=== PATIENT | female | born 1945 | race Caucasian/White ===

== ENCOUNTER 2018-04-15 16:01 | Inpatient (IN) | payer OTHER, MEDICAID ==
--- NOTE | 2018-04-15 16:24 | EDPHY ---
H & P Stated Complaint: nausea, abd pain, increased weakness over the last few days Time Seen by Provider: 04/15/18 16:23 HPI/ROS: CHIEF COMPLAINT: Nausea, weakness HISTORY OF PRESENT ILLNESS: The patient presents the ED for evaluation of nausea and weakness. The patient's symptoms have been occurring intermittently over the past several weeks. She denies any chest pain or difficulty breathing. She denies fever, cough or congestion. The patient denies any dysuria. She reports she has been having bouts of discoordination. She has also been having intermittent pain in her shoulders. The patient denies any history of fall or trauma. She denies any complaints of abdominal pain, fever, vomiting or diarrhea. The patient contacted her primary care provider who referred her to the ED for further evaluation. REVIEW OF SYSTEMS: A comprehensive 10 point review of systems is otherwise negative aside from elements mentioned in the history of present illness. Source: Patient Exam Limitations: No limitations - Personal History Current Tetanus Diphtheria and Acellular Pertussis (TDAP): Yes - Medical/Surgical History Hx Asthma: No Hx Chronic Respiratory Disease: No Hx Diabetes: No Hx Cardiac Disease: No Hx Renal Disease: No Hx Cirrhosis: No Hx Alcoholism: Yes Hx HIV/AIDS: No Hx Splenectomy or Spleen Trauma: No Other PMH: alcoholism/depression/r hip and wrist fx/l humeral fx, - Social History Smoking Status: Current some day smoker - Physical Exam Exam: General Appearance: Thin female, no acute distress Head: Normocephalic, atraumatic Eyes: Pupils equal and round no pallor or injection ENT, Mouth: Mucous membranes moist Respiratory: There are no retractions, lungs are clear to auscultation Cardiovascular: Regular rate and rhythm Gastrointestinal: Abdomen is soft and nontender, no masses, bowel sounds normal Neurological: 5/5 strength all 4 extremities, cranial nerves 2-12 intact Skin: Warm and dry, no rashes Musculoskeletal: Neck is supple nontender Extremities: symmetrical, full range of motion Psychiatric: Patient is oriented X 3, there is no agitation Constitutional: Initial Vital Signs Temperature (C) 36.6 C 04/15/18 16:09 Heart Rate 100 04/15/18 16:09 Respiratory Rate 16 04/15/18 16:09 Blood Pressure 151/100 H 04/15/18 16:09 O2 Sat (%) 93 04/15/18 16:09 O2 Delivery Mode Room Air Allergies/Adverse Reactions: No Known Allergies Allergy (Unverified 01/29/15 12:21) Home Medications: Medication Instructions Recorded Sertraline HCl [Zoloft 100mg (*)] 100 mg PO DAILY 04/15/18 Temazepam [Restoril] 30 mg PO HS 04/15/18 Medical Decision Making - Diagnostics EKG Interpretation: EKG: Complete interpretation has been separately recorded in the [facility] archive. Summary impression: Sinus rhythm, rate 81 Imaging Results: Imaging Impressions Head CT 04/15/18 17:15 Impression: Stable noncontrast CT examination of the brain. Results called to Dr. Hayes Beckwith at 5:50 PM at the time of the interpretation. ED Course/Re-evaluation: The patient presents to the ED with multiple vague complaints over the past several weeks including confusion, nausea and discoordination. I reviewed the patient's outpatient medications provided by [facility]. The patient is only taking sertaline and temazepam. The patient is noted to have a sodium of 124. She does not endorse symptoms of excess water consumption. The patient takes no medications which cause hyponatremia. The patient does appear somewhat hypovolemic. Given the patient's sodium of 124 in the setting of symptoms of confusion, nausea and gait instability I do feel she should be admitted to the hospital for further management. Consultation is made with the hospitalist service. She will be admitted by Dr. Avery. Her EKG demonstrates no significant arrhythmia. Fluid orders will be deferred to the admitting hospitalist. Differential Diagnosis: Differential diagnosis considered includes dehydration, metabolic abnormality, intracranial mass, urinary tract infection, anemia - Data Points Laboratory Results: Laboratory Results 04/15/18 17:00 04/15/18 17:00 04/15/18 04/15/18 04/15/18 17:17 17:00 17:00 WBC RBC Hgb Hct MCV MCH MCHC RDW Plt Count MPV Neut % (Auto) Lymph % (Auto) [place] % (Auto) Eos % (Auto) Baso % (Auto) Nucleat RBC Rel Count Absolute Neuts (auto) Absolute Lymphs (auto) Absolute Monos (auto) Absolute Eos (auto) Absolute Basos (auto) Absolute Nucleated RBC Immature Gran % Immature Gran # Sodium Potassium Chloride Carbon Dioxide Anion Gap BUN Creatinine Estimated GFR Glucose Serum Osmolality Pending Calcium Total Bilirubin Conjugated Bilirubin Unconjugated Bilirubin AST ALT Alkaline Phosphatase Total Protein Albumin Lipase Urine Color YELLOW Urine Appearance HAZY Urine pH 6.0 (5.0-7.5) Ur Specific [place] 1.018 (1.002-1.030) Urine Protein NEGATIVE (NEGATIVE) Urine Ketones TRACE H (NEGATIVE) Urine Blood 2+ H (NEGATIVE) Urine Nitrate NEGATIVE (NEGATIVE) Urine Bilirubin NEGATIVE (NEGATIVE) Urine Urobilinogen 4.0 EU H EU (0.2-1.0) Ur Leukocyte Esterase NEGATIVE (NEGATIVE) Urine RBC 15-25 /hpf H /hpf (0-3) Urine WBC 1-3 /hpf /hpf (0-3) Ur Epithelial Cells TRACE /lpf /lpf (NONE-1+) Urine Mucus TRACE /lpf /lpf (NONE-1+) Urine Osmolality Pending Urine Glucose NEGATIVE (NEGATIVE) 04/15/18 04/15/18 17:00 17:00 WBC 6.73 10^3/uL 10^3/uL (3.80-9.50) RBC 4.77 10^6/uL 10^6/uL (4.18-5.33) Hgb 13.9 g/dL g/dL (12.6-16.3) Hct 38.9 % % (38.0-47.0) MCV 81.6 fL fL (81.5-99.8) MCH 29.1 pg pg (27.9-34.1) MCHC 35.7 g/dL g/dL (32.4-36.7) RDW 13.3 % % (11.5-15.2) Plt Count 318 10^3/uL 10^3/uL (150-400) MPV 8.7 fL fL (8.7-11.7) Neut % (Auto) 72.0 % % (39.3-74.2) Lymph % (Auto) 14.9 % L % (15.0-45.0) [place] % (Auto) 11.7 % % (4.5-13.0) Eos % (Auto) 0.1 % L % (0.6-7.6) Baso % (Auto) 0.3 % % (0.3-1.7) Nucleat RBC Rel Count 0.0 % % (0.0-0.2) Absolute Neuts (auto) 4.84 10^3/uL 10^3/uL (1.70-6.50) Absolute Lymphs (auto) 1.00 10^3/uL 10^3/uL (1.00-3.00) Absolute Monos (auto) 0.79 10^3/uL 10^3/uL (0.30-0.80) Absolute Eos (auto) 0.01 10^3/uL L 10^3/uL (0.03-0.40) Absolute Basos (auto) 0.02 10^3/uL 10^3/uL (0.02-0.10) Absolute Nucleated RBC 0.00 10^3/uL 10^3/uL (0-0.01) Immature Gran % 1.0 % % (0.0-1.1) Immature Gran # 0.07 10^3/uL 10^3/uL (0.00-0.10) Sodium 124 mEq/L L mEq/L (135-145) Potassium 3.7 mEq/L mEq/L (3.3-5.0) Chloride 83 mEq/L L mEq/L (97-110) Carbon Dioxide 29 mEq/l mEq/l (22-31) Anion Gap 12 mEq/L mEq/L (8-16) BUN 18 mg/dL mg/dL (7-23) Creatinine 0.5 mg/dL L mg/dL (0.6-1.0) Estimated GFR > 60 Glucose 87 mg/dL mg/dL (70-100) Serum Osmolality Calcium 9.8 mg/dL mg/dL (8.5-10.4) Total Bilirubin 0.5 mg/dL mg/dL (0.1-1.4) Conjugated Bilirubin 0.3 mg/dL mg/dL (0.0-0.5) Unconjugated Bilirubin 0.2 mg/dL mg/dL (0.0-1.1) AST 30 IU/L IU/L (14-46) ALT 30 IU/L IU/L (9-52) Alkaline Phosphatase 87 IU/L IU/L (38-126) Total Protein 7.7 g/dL g/dL (6.3-8.2) Albumin 4.7 g/dL g/dL (3.5-5.0) Lipase 296 IU/L IU/L (23-300) Urine Color Urine Appearance Urine pH Ur Specific [place] Urine Protein Urine Ketones Urine Blood Urine Nitrate Urine Bilirubin Urine Urobilinogen Ur Leukocyte Esterase Urine RBC Urine WBC Ur Epithelial Cells Urine Mucus Urine Osmolality Urine Glucose Departure - Departure Disposition: [facility] Inpatient Acute Clinical Impression: Hyponatremia, Gait abnormality Condition: Good Referrals: Yasmine Davis PA [Primary Care Provider] - As per Instructions
[2018-04-15 17:16] LABS: PLATELET COUNT 318 10^3/uL (150-400)
--- NOTE | 2018-04-15 18:32 | CPEKG ---
Heart Rate: 81 RR Interval: 741 P-R Interval: 176 QRSD Interval: 94 QT Interval: 392 QTC Interval: 455 P [place]: 73 QRS [place]: 33 T Wave [place]: 60 EKG Severity - ABNORMAL ECG - EKG Impression: SINUS RHYTHM EKG Impression: LEFT ATRIAL ABNORMALITY EKG Impression: BORDERLINE R WAVE PROGRESSION, ANTERIOR LEADS Electronically Signed By: Baldo Wells 15-Apr-2018 18:42:36
[2018-04-15] MEDS ORDERED: NS 1,000 ML IV ONE (18:56)
[2018-04-15] MEDS ORDERED: ACETAMINOPHEN 325 MG TAB PO PRN (22:21)
[2018-04-15] MEDS ORDERED: ONDANSETRON 4 MG/2 ML VIAL IVP PRN (22:21)
[2018-04-15] MEDS: NS 1,000 ML IV SCH (23:10)
[2018-04-15] MEDS ORDERED: PROTOCOL MAGNESIUM 1 DOSE IV PRN (23:59)
[2018-04-15] MEDS ORDERED: PROTOCOL POTASSIUM 1 DOSE MISC PRN (23:59)
[2018-04-16] MEDS: TEMAZEPAM 15 MG CAP PO SCH ×2 (00:08→21:43)
--- NOTE | 2018-04-16 01:10 | PDGENHP ---
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 EMR was reviewed and case discussed with accepting hospitalist provider. HPI-this is a very pleasant 72-year-old female with past medical history significant for major depressive disorder controlled and remote history of alcohol dependence, osteopenia who presents emergency department today with complaints of approximately 1 week history of worsening nausea, decreased appetite and worsening generalized weakness requiring on use of a walker. Patient denies any fevers or chills. She has not had any sick contacts. She has not had any abdominal pain. No diarrhea melena or hematochezia is reported. Patient states that her nausea was so significant that she has not had significant oral intake or hydration in the past week. She reports that she has been evaluated by her PCP and a workup that included laboratory studies and referral for MRI and PT. Secondary to her nausea patient states that she has been unable to complete any of these recommended activities except for her laboratory studies which she states were within her normal limits. Patient also was concerned that her blood pressures which are normally BP patient 100s/ 60s on were elevated for her 140s/80 at her PCPs office. She denies any history of dyspnea, chest pain, palpitations. The only significant change on her review of systems a is that she has been waking up with a.m. Headaches which do resolve. No focal deficits reported. History Information - Allergies/Home Medication List Allergies/Adverse Reactions: No Known Allergies Allergy (Unverified 01/29/15 12:21) Home Medications: Sertraline HCl [Zoloft 100mg (*)] 100 mg PO DAILY 04/15/18 [Last Taken 04/15/18] Temazepam [Restoril] 30 mg PO HS 04/15/18 [Last Taken 04/14/18] I have personally reviewed and updated: family history, medical history, social history, surgical history - Past Medical History Additional medical history: Major depressive disorder, history of falls with fractures, osteopenia. Chronic insomnia. Remote history of alcohol dependence in remission since 2001. - Surgical History Additional surgical history: Multiple orthopedic surgeries related to fall including right hip, bilateral wrists and hands, left humerus - Family History Additional family history: Father with history of lung cancer. Other family members with diabetes. - Social History Smoking Status: Current some day smoker Tobacco Use: Cigarettes (Half pack per day for many years. Patient is trying to cut back.) Alcohol Use: Sober (Since 2001) Drug Use: None (Patient reports remote history of marijuana use years ago none currently.) Additional social history: Patient lives alone in an apartment. She does require use of a walker for long distances. Cor status-full. Review of Systems Review of Systems: ROS: 10pt was reviewed & negative except for what was stated in HPI & below Constitutional: Reports: weight loss (Patient thinks she may have lost just a few lb in the last week but notes that she has always been a small frame and denies any longstanding history of weight loss.). Denies: chills, fever EENMT: Reports: nose congestion (Congestion and rhinorrhea Due to seasonal allergies). Denies: blurred vision, sore throat Cardiac: Denies: chest pain, edema, lightheadedness, palpitations, syncope Respiratory: Reports: shortness of breath (Patient with history of occasional shortness of breath nothing recently.). Denies: cough, orthopnea Gastrointestinal: Reports: nausea. Denies: vomitting, black stools, rectal bleeding, abdominal pain, diarrhea Genitourinary: Reports: no symptoms. Denies: dysuria, hematuria Muscolosketal: Reports: joint pain (Patient with generalized aches and pains and arthritis in her hands.). Denies: back pain, muscle pain Neurological: Reports: no symptoms, anxiety, depressed, headache (A.m. Headaches as per HPI), weakness (Generalized weakness more notable in the bilateral lower extremities requiring use of a walker.). Denies: numbness, tingling, tremors Hematologic/Lymphatic: Reports: no symptoms Immunologic/Allergy: Reports: other (Seasonal allergies) Physical Exam Physical Exam: Temp Pulse Resp BP Pulse Ox 36.7 C 75 16 151/80 H 94 04/15/18 22:37 04/15/18 22:37 04/15/18 22:37 04/15/18 22:37 04/15/18 22:37 Constitutional: no apparent distress, chronically ill appearing, other (NAD. Pleasant thin frail the elderly female is sitting up in bed.) Eyes: PERRL, anicteric sclera, EOMI, No scleral injection Ears, Nose, Mouth, Throat: moist mucous membranes, no oral mucosal ulcers, poor dentition (Dentures upper and lower.) Cardiovascular: regular rate and rhythym, no murmur, rub, or gallop, pulses symmetric bilaterally, No systolic murmur, No edema Peripheral Pulses: 1+: dorsalis-pedis (R), dorsalis-pedis (L) Respiratory: no respiratory distress, no rales or rhonchi, clear to auscultation , No expiratory wheeze, No inspiratory crackles, No respiratory distress Gastrointestinal: normoactive bowel sounds, soft, non-tender abdomen, no palpable masses, No tenderness, No guarding, No distension Genitourinary: no bladder tenderness, No johnson in urethra Skin: warm, no rashes or abrasions, other (Patient with 10 bronze color skin which she reports is her normal baseline color as she tends a lot since her youth.) Musculoskeletal: generalized weakness, other (Of arthritic joint deformities of bilateral hands.), No full muscle strength, No pain with ROM Neurologic: AAOx3, sensation intact bilaterally, weakness (Generalized nonfocal) , CN II-XII Intact, No facial droop Psychiatric: interacting appropriately, not encephalopathic, thought process linear, No flat affect, No poor insight, No poor judgement, No poor memory Lab Data & Imaging Review 04/15/18 17:00 04/15/18 22:55 WBC 6.73 10^3/uL (3.80-9.50) 04/15/18 17:00 RBC 4.77 10^6/uL (4.18-5.33) 04/15/18 17:00 Hgb 13.9 g/dL (12.6-16.3) 04/15/18 17:00 Hct 38.9 % (38.0-47.0) 04/15/18 17:00 MCV 81.6 fL (81.5-99.8) 04/15/18 17:00 MCH 29.1 pg (27.9-34.1) 04/15/18 17:00 MCHC 35.7 g/dL (32.4-36.7) 04/15/18 17:00 RDW 13.3 % (11.5-15.2) 04/15/18 17:00 Plt Count 318 10^3/uL (150-400) 04/15/18 17:00 MPV 8.7 fL (8.7-11.7) 04/15/18 17:00 Neut % (Auto) 72.0 % (39.3-74.2) 04/15/18 17:00 Lymph % (Auto) 14.9 % (15.0-45.0) L 04/15/18 17:00 [place] % (Auto) 11.7 % (4.5-13.0) 04/15/18 17:00 Eos % (Auto) 0.1 % (0.6-7.6) L 04/15/18 17:00 Baso % (Auto) 0.3 % (0.3-1.7) 04/15/18 17:00 Nucleat RBC Rel Count 0.0 % (0.0-0.2) 04/15/18 17:00 Absolute Neuts (auto) 4.84 10^3/uL (1.70-6.50) 04/15/18 17:00 Absolute Lymphs (auto) 1.00 10^3/uL (1.00-3.00) 04/15/18 17:00 Absolute Monos (auto) 0.79 10^3/uL (0.30-0.80) 04/15/18 17:00 Absolute Eos (auto) 0.01 10^3/uL (0.03-0.40) L 04/15/18 17:00 Absolute Basos (auto) 0.02 10^3/uL (0.02-0.10) 04/15/18 17:00 Absolute Nucleated RBC 0.00 10^3/uL (0-0.01) 04/15/18 17:00 Immature Gran % 1.0 % (0.0-1.1) 04/15/18 17:00 Immature Gran # 0.07 10^3/uL (0.00-0.10) 04/15/18 17:00 Sodium 123 mEq/L (135-145) L 04/15/18 22:55 Potassium 3.2 mEq/L (3.3-5.0) L 04/15/18 22:55 Chloride 87 mEq/L (97-110) L 04/15/18 22:55 Carbon Dioxide 27 mEq/l (22-31) 04/15/18 22:55 Anion Gap 9 mEq/L (8-16) 04/15/18 22:55 BUN 13 mg/dL (7-23) 04/15/18 22:55 Creatinine 0.4 mg/dL (0.6-1.0) L 04/15/18 22:55 Estimated GFR > 60 04/15/18 22:55 Glucose 120 mg/dL (70-100) H 04/15/18 22:55 Serum Osmolality 259 mosmo/kg (280-297) L 04/15/18 17:00 Calcium 8.5 mg/dL (8.5-10.4) 04/15/18 22:55 Total Bilirubin 0.5 mg/dL (0.1-1.4) 04/15/18 17:00 Conjugated Bilirubin 0.3 mg/dL (0.0-0.5) 04/15/18 17:00 Unconjugated Bilirubin 0.2 mg/dL (0.0-1.1) 04/15/18 17:00 AST 30 IU/L (14-46) 04/15/18 17:00 ALT 30 IU/L (9-52) 04/15/18 17:00 Alkaline Phosphatase 87 IU/L (38-126) 04/15/18 17:00 Total Protein 7.7 g/dL (6.3-8.2) 04/15/18 17:00 Albumin 4.7 g/dL (3.5-5.0) 04/15/18 17:00 Lipase 296 IU/L (23-300) 04/15/18 17:00 Urine Color YELLOW 04/15/18 17:17 Urine Appearance HAZY 04/15/18 17:17 Urine pH 6.0 (5.0-7.5) 04/15/18 17:17 Ur Specific [place] 1.018 (1.002-1.030) 04/15/18 17:17 Urine Protein NEGATIVE (NEGATIVE) 04/15/18 17:17 Urine Ketones TRACE (NEGATIVE) H 04/15/18 17:17 Urine Blood 2+ (NEGATIVE) H 04/15/18 17:17 Urine Nitrate NEGATIVE (NEGATIVE) 04/15/18 17:17 Urine Bilirubin NEGATIVE (NEGATIVE) 04/15/18 17:17 Urine Urobilinogen 4.0 EU (0.2-1.0) H 04/15/18 17:17 Ur Leukocyte Esterase NEGATIVE (NEGATIVE) 04/15/18 17:17 Urine RBC 15-25 /hpf (0-3) H 04/15/18 17:17 Urine WBC 1-3 /hpf (0-3) 04/15/18 17:17 Ur Epithelial Cells TRACE /lpf (NONE-1+) 04/15/18 17:17 Urine Mucus TRACE /lpf (NONE-1+) 04/15/18 17:17 Urine Osmolality 547 mosmo/kg (300-900) 04/15/18 17:00 Urine Glucose NEGATIVE (NEGATIVE) 04/15/18 17:17 Imaging Review: Noncontrast Head CT Indication: Confusion. Difficulty walking.. Technique: Standard noncontrast axial CT images of the head were performed. Dose reduction techniques were utilized. Comparison Study: January 29, 2015 Findings: Underlying cerebral and cerebellar atrophy appears similar to prior examination. No evidence of acute intracranial hemorrhage, mass or mass effect, acute cortical ischemia. Craniocervical junction appears intact. No calvarial fracture identified. The paranasal sinuses are clear. Impression: Stable noncontrast CT examination of the brain. Results called to Dr. Hayes Beckwith at 5:50 PM at the time of the interpretation. Visualized and Interpreted imaging results: Yes Visualized and Interpreted EKG results: Yes EKG additional interpertation: NSR in the 80s. No acute ST changes. There is some underlying baseline artifact present. QTC is 455. Assessment & Plan Assessment: Pleasant 72-year-old female with history of depression in 1 week history of nausea without vomiting poor oral intake presents with complaints of progressive and worsening generalized weakness and nausea. #Hyponatremia (Acute) - likely secondary to hypovolemia with reports of history of 1 week decreased intake due to nausea. Patient has received some IV fluids in the emergency department will plan to repeat BMP and continue with IV fluid hydration. Will encourage oral intake and supplementation as tolerated. Additionally will obtain a serum and/or urine osmoles as well as urine sodium. Potentially sertraline could be contributing to patient's hyponatremia but given her history of declining oral intake likely related to hypovolemia. Patient's blood pressures is Hem #Generalized weakness - likely multifactorial including hyponatremia, dehydration, deconditioning. PT consultation evaluation. IV fluids will continue. Patient reports I generalized weakness has improved slightly. Will monitor sodium levels as noted above. Patient denies any lower back pain on or radicular symptoms that may be concerning for spinal etiology. Strength overall is symmetric just grossly declined. Patient does not require any acute imaging at this time. #Nausea - Zofran p.r.n.. Patient's nausea has improved and she is able to tolerate a little bit of oral intake. #Elevated blood pressures without history of hypertension - potentially related to patient's acute illness on but also could be underlying hypertension. Patient however notes that her baseline blood pressures typically run systolic in the 100s. Will add some p.r.n. Hydralazine at this time as patient has not previously been on antihypertensives. # hypokalemia - replacement protocol ordered. Will check on knees a.m. Levels as well in place if needed. #Tobacco dependence - cessation encouraged. Nicoderm patch p.r.n.. # chronic insomnia - Restoril at HS p.r.n.. Pain patient's previous charting notes that she may have had a little bit of confusion but patient denies just overall has been feeling weak. CT head was within normal limits. # major depressive disorder - resume patient's sertraline. FEN - normal saline overnight. Advance diet as tolerated encourage oral hydration. Electrolyte monitoring and replacement p.r.n.. PPX - SCDs. Anticoagulation if patient should stay additional day. Cor status-full Disposition-patient admitted observation on medical floor pending continued IV fluids and repeat laboratory studies in the morning.
--- NOTE | 2018-04-16 10:04 | HOSPPROG ---
Hospitalist Progress Note Assessment/Plan: Pleasant 72-year-old female with history of depression in 1 week history of nausea without vomiting poor oral intake presents with complaints of progressive and worsening generalized weakness and nausea. Today is my first encounter w the patient, chart reviewed. *Hyponatremia -has been taking in poor intake -urine Na is high, will fluid restrict and encourage more solute orally -on sertraline which could be contributing to this -added strawberry ensure *generalized weakness -multifactorial -PT and OT to see *nausea -resolved, if this continues will get further imaging *hypokalemia -on protocol *chronic insomnia -will discuss w her about a trial of Melatonin *HTN without hx of this -continued monitoring -much better today *tobacco dependence *chronic insomnia *MDD -appears to be well managed *underweight with a BMI of 18.3 *Plan: patient lives alone and has been very unsteady at home, will ask PT and OT to evaluated. Also, needs to be monitored overnight to make sure her low sodium levels improve and stabilize. Has had some ongoing nausea, will cont monitored. Subjective: Aline Gillespie is feeling much better today. Objective: Vital Signs Temp Pulse Resp BP Pulse Ox 36.6 C 74 18 154/89 H 96 04/16/18 08:00 04/16/18 08:00 04/16/18 08:00 04/16/18 08:00 04/16/18 08:00 Laboratory Results 04/16/18 04:46 04/15/18 04/16/18 04/17/18 05:59 05:59 05:59 Intake Total 300 Output Total 625 400 Balance -325 -400 - Physical Exam Constitutional: no apparent distress, other (thin) Eyes: PERRL Ears, Nose, Mouth, Throat: hearing normal Cardiovascular: regular rate and rhythym Respiratory: no respiratory distress Skin: warm Musculoskeletal: generalized weakness (uses a walker ) Neurologic: AAOx3 Psychiatric: interacting appropriately ICD10 Worksheet Patient Problems: Problems Problem Status Onset Gait abnormality Acute Hyponatremia Acute
[2018-04-16] MEDS ORDERED: POTASSIUM CL 10 MEQ TAB PO ONE ×2 (11:02→22:51)
[2018-04-16] MEDS ORDERED: MAGNESIUM SULF 1 GM/DEXTROSE 100 ML IV ONE (11:04)
[2018-04-16] MEDS: SERTRALINE HCL 100 MG TAB PO SCH (11:06)
[2018-04-16] MEDS: ENOXAPARIN 40 MG/0.4 ML SYR SC SCH (11:06)
[2018-04-16] MEDS: NICOTINE 21 MG/24 HR PATCH TD SCH (11:06)
[2018-04-16] MEDS: NS 1,000 ML IV SCH (11:34)
--- NOTE | 2018-04-16 14:38 | PDMN ---
Medical Necessity Medical necessity: C/M review: est. > 2 MN LOS for eval and TX of acute and persistent hyponatremia, progressive and worsening generalized weakness - multifactorial, nausea, poor oral intake, hypokalemia, hypertension - without history of this, patient not medically safe to discharge home requiring ongoing IV fluids, cardiac monitoring, pulse oximetry, supplemental o2, acute inpt PT/OT , comorbid history of major depressive disorder, one week of nausea without vomiting and progressive worsening of generalized weakness prior to this admission, chronic insomnia, tobacco dependence, patient lives alone and is very unsteady on her feet per 04/16/2018 Hospitalist progress note.
--- NOTE | 2018-04-16 17:11 | ASMTCMCOM ---
CM Note CM Note Notes: Pt admitted with nausea, hyponatremia, hypokalemia & progressive generalized weakness. 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 Spoke with PT; reports pt has an ataxic gait & uses a 4WW for balance issues r/t hx of alcoholism. PT recommedning [facility]. OT ordered; awaiting eval. CM will follow. Dc plan-TBD Date Signed: 04/16/2018 05:10 PM Electronically Signed By:Erum Daniels RN
[2018-04-17] MEDS ORDERED: MAGNESIUM SULF 1 GM/DEXTROSE 100 ML IV ONE (08:16)
--- NOTE | 2018-04-17 08:58 | HOSPPROG ---
Hospitalist Progress Note Assessment/Plan: Wei 72-year-old female with history of depression in 1 week history of nausea without vomiting poor oral intake presents with complaints of progressive and worsening generalized weakness and nausea. Today is my first encounter w the patient, chart reviewed. *Hyponatremia -has been taking in poor intake -urine Na is high, will fluid restrict and encourage more solute orally -on sertraline which could be contributing to this (SSRI's can cause SIADH) -added strawberry ensure *generalized weakness -multifactorial - appreciate PT and OT seeing her *nausea -resolved *hypokalemia -on protocol *chronic insomnia -will discuss w her about a trial of Melatonin *HTN without hx of this -been persistently high -low dose amlodipine *tobacco dependence -patch *MDD -appears to be well managed -tried to wean down on her dose in the past, but got depressed *underweight with a BMI of 18.3 *Plan: get a chest xray (?SIADH), start amlodipine, restrict H20 and see how she does Subjective: Aline is feeling much better today, no nausea, eating well. Objective: Vital Signs Temp Pulse Resp BP Pulse Ox 36.5 C 80 18 166/90 H 90 L 04/17/18 07:34 04/17/18 07:34 04/17/18 07:34 04/17/18 07:34 04/17/18 07:34 Laboratory Results 04/17/18 05:00 04/16/18 04/17/18 04/18/18 05:59 05:59 05:59 Intake Total 300 1300 Output Total 625 1400 Balance -325 -100 - Physical Exam Constitutional: appears nourished, not in pain, other (thin) Eyes: PERRL Ears, Nose, Mouth, Throat: hearing normal Cardiovascular: regular rate and rhythym Respiratory: no respiratory distress Gastrointestinal: normoactive bowel sounds Skin: warm Musculoskeletal: generalized weakness Neurologic: AAOx3 Psychiatric: interacting appropriately ICD10 Worksheet Patient Problems: Problems Problem Status Onset Gait abnormality Acute Hyponatremia Acute
[2018-04-17] MEDS: NICOTINE 21 MG/24 HR PATCH TD SCH (09:28)
[2018-04-17] MEDS: SERTRALINE HCL 100 MG TAB PO SCH (09:28)
[2018-04-17] MEDS: ENOXAPARIN 40 MG/0.4 ML SYR SC SCH (09:28)
--- NOTE | 2018-04-17 16:18 | ASMTCMCOM ---
CM Note CM Note Notes: OT recommending home no needs. PT recommending HHC. Met with pt & her daughter, Venecia, to discuss. Pt interested in HHC. Address & phone number verified. Discussed HHC agencies; [facility] chosen. Alerted Archana, at [facility]; willing to accept. Pt & Venecia updated. Loan closet list also provided. CM will follow. Dc plan-[facility] (PT) Date Signed: 04/17/2018 04:18 PM Electronically Signed By:Erum Daniels RN
[2018-04-17] MEDS: TEMAZEPAM 15 MG CAP PO SCH (22:03)
--- NOTE | 2018-04-18 09:17 | HOSPPROG ---
Hospitalist Progress Note Assessment/Plan: Pleasant 72-year-old female with history of depression in 1 week history of nausea without vomiting poor oral intake presents with complaints of progressive and worsening generalized weakness and nausea. *Hyponatremia -much improved w fluid restriction and increase solute intake -had been taking in poor intake -urine Na is high, will fluid restrict and encourage more solute orally -on sertraline which could be contributing to this (SSRI's can cause SIADH) -added strawberry ensure *R perihilar fullness -?mass or lymphadenopathy -offered a CT scan today x 2 but she prefers to f/u with her PCp -told her my concern of this finding w her hx of smoking *generalized weakness -multifactorial - appreciate PT and OT seeing her *nausea -resolved *hypokalemia -on protocol *chronic insomnia -will discuss w her about a trial of Melatonin *HTN without hx of this -been persistently high -low dose amlodipine *tobacco dependence -patch *MDD -appears to be well managed -tried to wean down on her dose in the past, but got depressed *underweight with a BMI of 18.3 *Plan: dc home Subjective: Aline is feeling much better today Objective: Vital Signs Temp Pulse Resp BP Pulse Ox 36.5 C 95 16 154/92 H 91 L 04/18/18 04:00 04/18/18 04:00 04/18/18 04:00 04/18/18 04:00 04/18/18 04:00 Laboratory Results 04/18/18 04:45 04/17/18 04/18/18 04/19/18 05:59 05:59 05:59 Intake Total 1300 1000 Output Total 1400 1650 Balance -100 -650 - Physical Exam Constitutional: no apparent distress, appears nourished, not in pain, other ( thin) Eyes: PERRL Ears, Nose, Mouth, Throat: hearing normal Cardiovascular: regular rate and rhythym Respiratory: no respiratory distress Skin: warm Musculoskeletal: generalized weakness Neurologic: AAOx3 Psychiatric: interacting appropriately, not anxious ICD10 Worksheet Patient Problems: Problems Problem Status Onset Gait abnormality Acute Hyponatremia Acute
[2018-04-18] MEDS: ENOXAPARIN 40 MG/0.4 ML SYR SC SCH (09:49)
--- NOTE | 2018-04-18 10:02 | GDS ---
[f rep st] DISCHARGE SUMMARY DISCHARGE DIAGNOSES: 1. Hyponatremia. 2. Right perihilar fullness. 3. Generalized weakness. 4. Nausea. 5. Hypokalemia. 6. Chronic insomnia. 7. Hypertension, without history of this. 8. Tobacco dependence. 9. Major depressive disorder. 10. Underweight, with a body mass index of 18.3. Briefly, the patient is a very sweet 72-year-old female with a history of depression. She had a 1-week history of nausea without vomiting. She had poor oral intake and complaints of progressive and generalized weakness. She was admitted, and her low sodium levels were addressed. Her appetite is improved. She was seen by Physical Therapy and Occupational Therapy and is at her baseline. HOSPITAL COURSE: 1. Hyponatremia. Suspect she has mixed hyponatremia with ongoing hypovolemia, as an element of SIADH. She improved after getting her fluids. Also, she is on sertraline, which could be contributing to this. She has been taking Ensure and have restricted her water intake, markedly better. 2. Right perihilar fullness. A chest x-ray was performed, which showed concern for possible mass or lymphadenopathy. I offered her to get a CT scan twice a day, but she prefers to follow up with her primary care provider. I encouraged her that this needs to be monitored closely in the outpatient setting with her history of smoking. 3. Generalized weakness. This is multifactorial, now resolved. 4. Hypokalemia, on the protocol. 5. Chronic insomnia. She has been sleeping well. 6. Hypertension. She says she does not have a history of this. She is on low- dose amlodipine with improvement. Recommending she get this followed up. 7. Tobacco dependence, cessation recommended. 8. Major depressive disorder, well managed. 9. Underweight, with a body mass index of 18.3. DISCHARGE CONDITION: Stable. Blood pressure is 154/92, heart rate of 95, respiratory rate of 16, O2 sats on room air 91%. Temperature is 36.5 Celsius. DISCHARGE MEDICATIONS: Please see the EMR. DISCHARGE INSTRUCTIONS: 1. To get her sodium checked this Wednesday. 2. She needs to restrict fluid, especially water, coffee and Pepsi. Encouraging her to add salt to her diet and drink Ensure between meals. 3. She needs to get a chest x-ray or a CT scan followup. Her chest x-ray showed a right-sided perihilar fullness. This needs further evaluation, especially in the setting of smoking. 4. Blood pressure needs to be monitored closely. Greater than 30 minutes discharging and coordinating her care. /[id number]/MODL MTDD
--- NOTE | 2018-04-18 10:13 | ASMTLACE ---
AMINA Length of stay for Answers: 3 days current admission Acuity / Level of Answers: Yes Care: Did the patient have an inpatient admission? Comorbidities - select Answers: History of falls all that apply # of Emergency department Answers: 1-2 visits in the last 6 months Social determinants Answers: History of substance abuse (ETOH, street drugs, prescription drugs, etc.) Mental health diagnosis (anxiety, depression, pers onality disorders, etc.) Score: 16 Date Signed: 04/18/2018 10:12 AM Electronically Signed By:SHAE Gambino
[2018-04-18] MEDS: SERTRALINE HCL 100 MG TAB PO SCH (10:17)
[2018-04-18] MEDS: NICOTINE 21 MG/24 HR PATCH TD SCH (10:17)
[2018-04-18 10:20] VITALS: BP 137/90
--- NOTE | 2018-04-19 09:41 | ASDISCHSUM ---
Discharge Information Plan Status:Home with Home Health Medically Cleared to Leave:04/18/2018 Discharge Date:04/18/2018 11:15 AM CM D/C Disposition: ADT D/C Disposition:Home Health Service Projected Discharge Date:04/18/2018 11:00 AM Transportation at D/C: Discharge Delay Reason: Follow-Up Date:04/18/2018 11:00 AM Discharge Slot: Final Diagnosis: Placement Information Referral Type:*Home Health Care Services Referral ID:[id number] Provider Name:[facility] Address 1:[address] [place] [address] Address 2: City:[place] Selection Factors: State:[place] Patient Contact Information Contact Name:JORGE Relationship:Son Address: Work Phone: City:[place] Alternate Phone: State/Zip Code:[place] Email: Financial Information Financial Class:Medicare Primary Plan Desc:MEDICARE INPATIENT Primary Plan Number:[id number] Secondary Plan Desc:MEDICA[place] Secondary Plan Number:[id number] Assessment Information LACE LACE Length of stay for Answers: 3 days current admission Acuity / Level of Answers: Yes Care: Did the patient have an inpatient admission? Comorbidities - select Answers: History of falls all that apply # of Emergency department Answers: 1-2 visits in the last 6 months Social determinants Answers: History of substance abuse (ETOH, street drugs, prescription drugs, etc.) Mental health diagnosis (anxiety, depression, pers onality disorders, etc.) Score: 16 Date Signed: 04/18/2018 10:12 AM Electronically Signed By:SHAE Gambino [facility] CM Progress Note CM Note CM Note Notes: Pt admitted with nausea, hyponatremia, hypokalemia & progressive generalized weakness. 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 Spoke with PT; reports pt has an ataxic gait & uses a 4WW for balance issues r/t hx of alcoholism. PT recommedning HHC. OT ordered; awaiting eval. CM will follow. Alex plan-[facility] Date Signed: 04/16/2018 05:10 PM Electronically Signed By:Erum Daniels RN [facility] CM Progress Note CM Note CM Note Notes: OT recommending home no needs. PT recommending HHC. Met with pt & her daughter, Venecia, to discuss. Pt interested in HHC. Address & phone number verified. Discussed HHC agencies; [facility] chosen. Alerted Archana at [facility]; willing to accept. Pt & Venecia updated. Loan closet list also provided. CM will follow. Dc plan-[facility] (PT) Date Signed: 04/17/2018 04:18 PM Electronically Signed By:Erum Daniels RN Case Management Discharge Plan Note Case Management Discharge Discharge Order Complete? Answers: Yes Patient to Obtain Answers: via Family Medications Transportation Arranged Answers: Family/Friends EMTALA Complete Answers: No Case Management Transport Answers: No Form Complete Faxed Final Orders Answers: Yes Agency/Facility Transfer Answers: Yes Report Printed & Faxed to Receiving Agency Family Notified Answers: No Discharge Comments Notes: CM spoke w/ MERYL Farr regarding d/c POC. Pt is being discharged today. Chika would like pt to have an LUZ, RN to draw up labs. CM notified [facility] of the d/c. CM provided ASAEL Mcgee w/ phone number to give report. CM available for changes. Plan: [facility]; ASAEL MOONEY Date Signed: 04/18/2018 10:12 AM Electronically Signed By:SHAE Gambino Intervention Information Intervention Type:*IM-Signed Date of Service:04/18/2018 10:04 AM Patient Type:Inpatient Staff Member:Mya Cleveland Hours: Discipline: Severity: Comment:
== END 2018-04-18 11:15 | disposition home health service (06) | DRG 641 ==
LOC: OBSVTOIN 18:43 → F3E 19:40
PROVIDERS: ADMIT Family Medicine; ATTEND Family Medicine
DX: E87.1 Hypo-osmolality and hyponatremia (principal); E87.6 Hypokalemia; R91.8 Other nonspecific abnormal finding of lung field; I10 Essential (primary) hypertension; R63.6 Underweight; Z68.1 Body mass index [BMI] 19.9 or less, adult; F51.04 Psychophysiologic insomnia; M85.80 Other specified disorders of bone density and structure, unspecified site; F32.9 Major depressive disorder, single episode, unspecified; F17.210 Nicotine dependence, cigarettes, uncomplicated
CPT/HCPCS: 97116-GP; 97161-GP; 97166-GO; 97535-GO; G0378; G8978-GP-CI; G8979-GP-CI; G8987-GO-CI; G8988-GO-CI; G8989-GO-CI; J1650; J3475

== ENCOUNTER → 2018-05-19 | Outpatient (CLI) | payer OTHER, MEDICAID ==
[~2018-05-19] MED LIST: LIDOCAINE 1% 300 MG/30 ML SDV ONE
== END ==
LOC: FIMAGING 10:27
PROVIDERS: ATTEND Internal Medicine Hematology & Oncology
PROC: 07B13ZX Excision of Right Neck Lymphatic, Percutaneous Approach, Diagnostic (ICD-10-PCS; principal; 2018-05-19)
DX: C34.90 Malignant neoplasm of unspecified part of unspecified bronchus or lung (principal)

== ENCOUNTER 2018-05-20 14:35 | Inpatient (IN) | payer OTHER, MEDICAID ==
--- NOTE | 2018-05-20 15:05 | EDPHY ---
HPI/HX/ROS/PE/MDM Narrative: CHIEF COMPLAINT: Pneumonia, hypoxemia, metastatic cancer HPI: The patient is a 72 y/o female with recently diagnosed metastatic disease thought to be lung in origin arriving at the referral of her PCP for hypoxemia and pneumonia on chest x-ray today. She had a chest CT on 05/09/18 that showed a large right hilar mass extending into the mediastinum consistent with neoplasm and had subsequent US biopsy of a right supraclavicular mass yesterday. Pathology results are pending. She has some mild soreness at the site of the biopsy for which she recently took a dose of ibuprofen. She is coughing every time she attempts to swallow water or pills and thinks this has caused her to aspirate some water. She followed up with her PCP today and a chest x-ray showed pneumonia so she was referred here for treatment and likely admission. She denies chest pain, dyspnea, pleuritic pain, fever. She does have some controlled bleeding on her right great toe after a blister ruptured today. No anticoagulant use. REVIEW OF SYSTEMS: Aside from elements discussed in the HPI, a comprehensive 10-point review of systems was reviewed and is negative. PMH: Depression, remote history alcohol dependence remission since 2001, osteopenia, history of falls with fractures and orthopedic surgeries, chronic insomnia SOCIAL HISTORY: Smoker (half-pack per day for many years), sober since 2001, family member at bedside. PCP: ALANA Davis. Oncologist: Dr. Champagne Prior medical records reviewed including admission 04/15/18 for weakness. PHYSICAL EXAM: General:Patient is alert, in no acute distress. Thin. SpO2 88% on room air. ENT:Eyes are normal to inspection. ENT inspection normal. Neck: Normal inspection. Full range of motion. Respiratory:No respiratory distress. Breath sounds mildly diminished right upper lobe. Cardiovascular: Regular rate and rhythm. Strong peripheral pulses. Normal cap refill. Abdomen:The abdomen is nontender to palpation. There are no peritoneal signs. Back: Normal to inspection. No tenderness to palpation. Skin: Normal color. No rash. Warm and dry. Extremities: Ruptured blood blister medial aspect right great toe, otherwise normal appearance. Full range of motion. Neuro: Oriented x3. Normal motor function. Normal sensory function. ED Course: This is a thin 72 y/o female with recently diagnosed metastatic cancer with hilar mass who presents with hypoxemia and suspected pneumonia on outpatient chest x-ray today. She is 88% on room air here, but largely asymptomatic. Presentation could represent aspiration pneumonia or worsening of metastatic disease. Plan for IV, sepsis labs, chest x-ray, and probable admission. Chest x-ray: right upper lobe infiltrate, mediastinal mass Spoke with hospitalist service. Dr. Benjamin accepts admission for hypoxemia. - Data Points Imaging Results: Imaging Impressions Chest X-Ray 05/20/18 14:59 Impression: 1. Increasing mediastinal and right hilar lymphadenopathy. 2. Increasing right pleural effusion, still small in volume. 3 interstitial thickening in the right upper lobe may represent interstitial pulmonary edema versus interstitial pneumonia.. Imaging: I viewed and interpreted images myself Laboratory Results: Laboratory Results 05/20/18 15:12 05/20/18 15:12 05/20/18 05/20/18 05/20/18 15:15 15:12 15:12 WBC RBC Hgb Hct MCV MCH MCHC RDW Plt Count MPV Neut % (Auto) Lymph % (Auto) Sibley % (Auto) Eos % (Auto) Baso % (Auto) Nucleat RBC Rel Count Absolute Neuts (auto) Absolute Lymphs (auto) Absolute Monos (auto) Absolute Eos (auto) Absolute Basos (auto) Absolute Nucleated RBC Immature Gran % Seg Neutrophils % Band Neutrophils % Lymphocytes % Monocytes % Eosinophils % Basophils % Metamyelocytes % Myelocytes % Promyelocytes % Blast Cells % Immature Gran # Absolute Seg Neuts Absolute Band Neuts Absolute Lymphocytes Absolute Monocytes Absolute Eosinophils Absolute Basophils Absolute Metamyelocyte Absolute Myelocytes Absolute Promyelocytes Absolute Plasma Cells Absolute Blast Cells Plasma Cells % Platelet Estimate Microcytic Cells Smear Review By VBG Lactic Acid 1.3 mmol/L mmol/L (0.7-2.1) Sodium 132 mEq/L L mEq/L (135-145) Potassium 2.9 mEq/L L mEq/L (3.3-5.0) Chloride 87 mEq/L L mEq/L (97-110) Carbon Dioxide 36 mEq/l H mEq/l (22-31) Anion Gap 9 mEq/L mEq/L (8-16) BUN 28 mg/dL H mg/dL (7-23) Creatinine 0.5 mg/dL L mg/dL (0.6-1.0) Estimated GFR > 60 Glucose 138 mg/dL H mg/dL (70-100) Calcium 9.2 mg/dL mg/dL (8.5-10.4) POC Troponin I 0.00 ng/mL ng/mL (0.00-0.08) 05/20/18 15:12 WBC 9.00 10^3/uL 10^3/uL (3.80-9.50) RBC 4.19 10^6/uL 10^6/uL (4.18-5.33) Hgb 12.0 g/dL L g/dL (12.6-16.3) Hct 35.1 % L % (38.0-47.0) MCV 83.8 fL fL (81.5-99.8) MCH 28.6 pg pg (27.9-34.1) MCHC 34.2 g/dL g/dL (32.4-36.7) RDW 15.1 % % (11.5-15.2) Plt Count 191 10^3/uL 10^3/uL (150-400) MPV 9.1 fL fL (8.7-11.7) Neut % (Auto) Not Reported Lymph % (Auto) Not Reported Sibley % (Auto) Not Reported Eos % (Auto) Not Reported Baso % (Auto) Not Reported Nucleat RBC Rel Count Not Reported Absolute Neuts (auto) Not Reported Absolute Lymphs (auto) Not Reported Absolute Monos (auto) Not Reported Absolute Eos (auto) Not Reported Absolute Basos (auto) Not Reported Absolute Nucleated RBC Not Reported Immature Gran % Not Reported Seg Neutrophils % 79.0 % % Band Neutrophils % 4.0 % % Lymphocytes % 10.0 % % Monocytes % 3.0 % % Eosinophils % 0 % % Basophils % 0 % % Metamyelocytes % 2.0 % % Myelocytes % 2.0 % % Promyelocytes % 0 % % Blast Cells % 0 % % Immature Gran # Not Reported Absolute Seg Neuts 7.11 10^/uL H 10^/uL (1.70-6.50) Absolute Band Neuts 0.36 10^3/uL 10^3/uL (0.00-0.70) Absolute Lymphocytes 0.90 10^3/uL L 10^3/uL (1.00-3.00) Absolute Monocytes 0.27 10^3/uL L 10^3/uL (0.30-0.80) Absolute Eosinophils 0.00 10^3/uL L 10^3/uL (0.03-0.40) Absolute Basophils 0.00 10^3/uL L 10^3/uL (0.02-0.10) Absolute Metamyelocyte 0.18 10^3/mL H 10^3/mL (0.00-0.00) Absolute Myelocytes 0.18 10^3/mL H 10^3/mL (0.00-0.00) Absolute Promyelocytes 0.00 10^3/uL 10^3/uL (0.00-0.00) Absolute Plasma Cells 0.00 10^3/uL 10^3/uL (0.00-0.00) Absolute Blast Cells 0.00 10^3/uL 10^3/uL (0.00-0.00) Plasma Cells % 0 % % Platelet Estimate ADEQUATE (ADEQ) Microcytic Cells 1+ H Smear Review By Pending VBG Lactic Acid Sodium Potassium Chloride Carbon Dioxide Anion Gap BUN Creatinine Estimated GFR Glucose Calcium POC Troponin I Point of Care Test Results: Chemistry 05/20/18 15:15 POC Troponin I 0.00 ng/mL ng/mL (0.00-0.08) General Time Seen by Provider: 05/20/18 14:53 Initial Vital Signs: Initial Vital Signs Temperature (C) 36.3 C 05/20/18 14:37 Heart Rate 98 05/20/18 14:37 Respiratory Rate 18 05/20/18 14:37 Blood Pressure 138/76 H 05/20/18 14:37 O2 Sat (%) 85 L 05/20/18 14:37 O2 Delivery Mode Room Air Allergies/Adverse Reactions: No Known Allergies Allergy (Verified 05/20/18 14:41) Home Medications: Medication Instructions Recorded amLODIPine BESYLATE [Norvasc 2.5 2.5 mg PO DAILY #30 tab 04/18/18 mg (*)] Ibuprofen [Motrin (*)] 600 mg PO TID 05/20/18 Nicotine [Nicoderm Cq 14 mg (*)] 14 mg TD DAILY 05/20/18 Sertraline HCl [Zoloft 100mg (*)] 100 mg PO DAILY 05/20/18 Temazepam [Restoril 15 MG (*)] 15 mg PO HS PRN 05/20/18 Departure - Departure Disposition: [facility] Acute Clinical Impression: Hypoxemia Condition: Fair Referrals: Yasmine Davis PA [Primary Care Provider] - As per Instructions Report Scribed for: Joe Rolle Report Scribed by: Winsome Aly Date of Report: 05/20/18 Time of Report: 14:57 Physician Review and Approval Statement: Portions of this note were transcribed by an ED scribe. I personally performed the history, physical exam, and medical decision making; and confirm the accuracy of the information in the transcribed note.
[2018-05-20 15:23] LABS: PLATELET COUNT 191 10^3/uL (150-400)
[2018-05-20] MEDS ORDERED: PROTOCOL MAGNESIUM 1 DOSE IV PRN (16:38)
[2018-05-20] MEDS ORDERED: oxyCODONE IR 5 MG TAB PO PRN (16:38)
[2018-05-20] MEDS ORDERED: POTASSIUM CL 20 MEQ/15 ML UDCUP PO ONE ×2 (16:38→22:30)
[2018-05-20] MEDS ORDERED: HYDROmorphONE/DILAUDID 1 MG/ML INJ IVP PRN (16:38)
[2018-05-20] MEDS ORDERED: ALBUTEROL 3 ML DEYVIAL IH PRN (16:38)
[2018-05-20] MEDS ORDERED: ONDANSETRON 4 MG/2 ML VIAL IVP PRN (16:38)
[2018-05-20] MEDS ORDERED: PROTOCOL POTASSIUM 1 DOSE MISC PRN (16:38)
[2018-05-20] MEDS ORDERED: ONDANSETRON DISINTEGRATING 4 MG TAB PO PRN (16:38)
[2018-05-20] MEDS ORDERED: IOPAMIDOL (ISOVUE 370) 100 ML BTL IV ONE (16:48)
--- NOTE | 2018-05-20 17:23 | GHP ---
[f rep st] HISTORY AND PHYSICAL DATE OF ADMISSION: 05/20/2018 CHIEF COMPLAINT: Hypoxemia. HISTORY OF PRESENT ILLNESS: The patient is a 72-year-old female with a history of tobacco abuse, hyponatremia, and recent presumed diagnosis of metastatic lung cancer, who presents to the emergency department from her PCP's office due to concern for pneumonia and hypoxemia. She was admitted to the hospital approximately 1 month ago, presenting with nausea and vomiting. She was found to be hyponatremic, thought to be possibly multifactorial from hypovolemia and an element of SIADH. At that time, a right perihilar fullness was noted, and she was offered a CT scan, but she declined. She did follow up in the outpatient setting and had a CT scan May 09 which showed a large right hilar mass extending into the mediastinum. She was referred to Dr. Joe Champagne, and just yesterday, underwent biopsy of a right supraclavicular mass. Pathology is pending. She also underwent a PET scan which showed possible metastatic disease in the lumbar spine. She has been having significant lumbar spine pain and manages this with oral oxycodone. With respect to her worsening hypoxemia, she does endorse some shortness of breath and dyspnea with exertion. She denies chest pain or pleuritic symptoms. She does have a mild cough which has been more present the past few days. This is nonproductive. She denies chills, sweats, or rigors. She also reports poor oral intake and endorses weight loss. In the emergency department, a chest x-ray is showed increasing mediastinal and hilar lymphadenopathy with increasing right pleural effusion, as well as interstitial thickening in the right upper lobe, possibly due to pneumonia. She is saturating 85% on room air and is admitted to the hospital for further evaluation. PAST MEDICAL HISTORY: 1. Presumed lung cancer with PET scan positive for possible metastases to the lumbar spine. Biopsy of a supraclavicular mass is currently pending. She has had outpatient consult with Dr. Joe Champagne. 2. 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 3. Depression. 4. Osteopenia. 5. History of falls with fractures. 6. Insomnia. 7. Remote history of alcohol dependence, sober since 2001. 8. Tobacco abuse. PAST SURGICAL HISTORY: Multiple orthopedic surgeries including right hip, bilateral wrists, hands, and left humerus. FAMILY HISTORY: Her father had lung cancer. It sounds like her mom had peripheral artery disease and her mother's side is also positive for diabetes. SOCIAL HISTORY: The patient lives independently. She quit smoking 2 weeks ago and is currently using a Nicoderm patch to maintain cessation from cigarettes. She denies recent alcohol use. MEDICATIONS: Please see [employer] for completed outpatient medication list. ALLERGIES: She has no known drug allergies. REVIEW OF SYSTEMS: A 10-point review of systems is performed and is negative except as per HPI. OBJECTIVE: VITAL SIGNS: Temperature 36.3, blood pressure 138/76, heart rate 98 , respiratory rate 18, she is 85% on room air and 94% on 2 L. GENERAL: The patient is awake, alert, oriented. She appears cachectic. HEENT: Head is atraumatic, normocephalic. Pupils equal, round, react to light. Extraocular movements intact. Oropharynx, mucous membranes are moist. Dentures are noted. NECK: Supple. There is no JVD. HEART: Regular rate and rhythm. LUNGS: Relatively clear to auscultation without wheezes, rales, or rhonchi. I detect minimal crackles on the right lung field. Overall fairly good air exchange. ABDOMEN: Soft, nondistended with normoactive bowel sounds. EXTREMITIES: Without cyanosis, clubbing, or edema. NEUROLOGIC: Grossly nonfocal. LABORATORY DATA: CBC is white count of 9.0 with 79% neutrophils, 4% bands. Lactate is 1.3. Sodium 132, potassium 2.9, chloride 87, bicarb 36, BUN 28, creatinine 0.5, glucose 138. Troponin is negative. IMAGING: Chest x-ray performed in the emergency department shows increasing mediastinal and right hilar lymphadenopathy with interstitial thickening in the right upper lobe, possibly secondary to pneumonia, as well as increasing right pleural effusion, which still appears small in volume. ASSESSMENT AND PLAN: The patient is a 72-year-old female with history of recently diagnosed presumed lung cancer, presents Emergency Department with hypoxemia. 1. Acute hypoxemic respiratory failure. This is secondary to a right hilar mass. presumed lung cancer and possible postobstructive pneumonia. Also rule out pulmonary embolism with CTA. Blood cultures are drawn. She will be treated with ceftriaxone and azithromycin. A biopsy of a right supraclavicular mass was performed yesterday and results are pending. Will need to follow up on pathology and recommend inpatient oncology consult for further guidance. Will further assess her pleural effusion on CT scan. At this time, it does not appear large enough or causing symptoms significant enough to warrant thoracentesis. Consider pulmonary consult in am. 2. Presumed metastatic lung cancer. Her PET scan was positive for what looks like metastatic disease in her lumbar spine. As above, pathology is pending on the right supraclavicular mass. I have not discussed the case with Oncology at time of admission, but they should be consulted in the morning. Followed by Dr. Champagne. 3. Hyponatremia. This actually improved from hospital discharge one month ago , at which time it was 125. She is now 132. Will continue fluid restriction and Ensure with meals. 4. Hypokalemia. Check magnesium, replace per protocol and follow. 5. Severe protein calorie malnutrition. The patient has ongoing weight loss and is cachectic on arrival. Dietary consult was requested. Ensure supplements are ordered. 6. Deep vein thrombosis prophylaxis. Patient is high risk with Lovenox. 7. Code status. I discussed code status with patient and her daughter. She wishes to be full code. 8. Disposition. Patient admitted to inpatient status. I anticipate greater than 48 hours hospitalization for ongoing management of her hypoxemia and presumed postobstructive pneumonia. /[id number]/MODL MTDD
[2018-05-20] MEDS: ACETAMINOPHEN 500 MG TAB PO SCH ×2 (17:30→23:25)
[2018-05-20] MEDS: AZITHROMYCIN IV 500 MG in NS 250 ML IV SCH (17:31)
[2018-05-20] MEDS ORDERED: POTASSIUM CL 10 MEQ TAB PO ONE (21:05)
[2018-05-20] MEDS ORDERED: IBUPROFEN 200 MG TAB PO SCH (22:00)
[2018-05-20] MEDS: IBUPROFEN 200 MG TAB PO SCH (23:21)
[2018-05-20] MEDS: TEMAZEPAM 15 MG CAP PO PRN (23:29)
[2018-05-21 05:48] LABS: PLATELET COUNT 195 10^3/uL (150-400)
[2018-05-21 05:56] LABS: PROTIME(PATIENT) 13.4 SEC (12.0-15.0)
[2018-05-21] MEDS ORDERED: POTASSIUM CL 10 MEQ TAB PO ONE (06:15)
[2018-05-21] MEDS ORDERED: POTASSIUM CL 20 MEQ/15 ML UDCUP PO ONE (06:30)
[2018-05-21] MEDS: IBUPROFEN 200 MG TAB PO SCH ×3 (09:29→22:20)
[2018-05-21] MEDS: NICOTINE 14 MG/24 HR PATCH TD SCH (09:30)
[2018-05-21] MEDS: SERTRALINE HCL 100 MG TAB PO SCH (09:30)
[2018-05-21] MEDS: ENOXAPARIN 40 MG/0.4 ML SYR SC SCH (09:31)
[2018-05-21] MEDS: ACETAMINOPHEN 500 MG TAB PO SCH ×2 (09:32→17:51)
[2018-05-21] MEDS: AZITHROMYCIN IV 500 MG in NS 250 ML IV SCH (11:03)
--- NOTE | 2018-05-21 11:46 | ECHO ---
[email or web address] [address] [address] Main: [phone] Fax: Transthoracic Echocardiogram Name: ISIDRA TANNER MR#: [id number] Study Date: 05/21/2018 Study Time: 11:04 AM Date of : 1945 Age: 72 year(s) Height: 160 cm (63 in.) Weight: 42.64 kg (94 lb.) BSA: 1.4 m2 Gender: Female Examination: Echo Indication: Pericardial Effusion Image Quality: Adequate Contrast: Requested by: Ibis Benjamin BP: 150 mmHg/91 mmHg Heart Rate: Rhythm: Indication: Pericardial Effusion Procedure Staff Children'S Service Supervisor: Hanna Willingham [facility] Reading Physician: London Holguin MD Requesting Provider: Conclusions: 1)Mild LV dsyfunction with a LVEF of 43% and mild global hypokinesis. 2)Mild diastolic dysfunction noted. 3)Mild AI without noted. 4)Mild MR without MV prolapse. 5)Mild TR with estimated normal PA pressures. 6)Normal size ascending thoracic aorta with atheroma noted along vessel tena. 7)Small to moderate circumferential pericardial effusion measuring 1.2-1.6cm at various areas with no tamponade physiology. Measurements: Chambers Valvular Assessment AV/MV Valvular Assessment TV/PV Normal Normal Normal Name Value Range Name Value Range Name Value Range Ao Gregoria (2D): 2.7 cm (1.4 cm-2.6 AV Vmax: 1.10 m/s (1 m/s-1.7 TR Vmax: 2.40 mm/s ( - ) cm) m/s) TR PGmax: 23 mmHg ( - ) IVSd (2D): 1.0 cm (0.6 cm-1.1 AV maxP mmHg ( - ) syst. PAP: 28 mmHg ( - ) cm) AV meanP mmHg ( - ) PV Vmax: 0.77 m/s (0.6 m/s-0.9 LVDd (2D): 4.1 cm (3.9 cm-5.3 ANA LUISA (VTI): 2.4 cm ( - ) m/s) cm) MV E Vmax: 0.47 m/s ( - ) PV PGmax: 2 mmHg ( - ) LVDs (2D): 3.2 cm (2.1 cm-4 MV A Vmax: 0.92 m/s ( - ) cm) MV E/A: 0.51 ( - ) LVPWd (2D): 0.9 cm ( - ) MV PHT: 0.046 s ( - ) LVOTd 2.0 cm 2.0 cm mm MVA (PHT): 4.8 s ( - ) Visual EF: 43 % RVDd(2D): 2.6 cm (1.9 cm-3.8 cmmm) Continued Measurements: Chambers Valvular Assessment AV/MV Valvular Assessment TV/PV Patient: ISIDRA TANNER Study Date: 05/21/2018 Page 1 of 2 11:04 AM Name Value Name Value Name Value LADs: 2.7 cm MV DecTime: 141 m/s CVP (est.): 5 mmHg LADs Lon.3 cm MV E' Septal: 0.07 m/s LA Area: 13.2 cm2 MV E/E' Septal: 7.30 LA Volume: 34 ml MV E/E' Lateral: 7.70 LA Volume Index: 24.3 ml/m2 RA Area: 11.5 cm2 Additional Vessels Name Value Ao Ascendin.9 cm Inferior Vena Cava: 1.8 cm Findings: Left Ventricle: Normal size left ventricle. No LV hypertrophy. Low normal left ventricular systolic function. The ejection fraction is visually estimated to be 43 %. No regional wall motion abnormality. Diastolic dysfunction is present. . Right Ventricle: Normal size right ventricle. Normal RV function. Left Atrium: The left atrium is normal in size. Right Atrium: The right atrium is normal in size. Mitral Valve: The mitral valve is normal in appearance and function. Mild mitral valve regurgitation is present. No mitral stenosis is present. Aortic Valve: The aortic valve is normal in appearance and function. Mild aortic valve regurgitation is present. No aortic valve stenosis is present. Tricuspid Valve: The tricuspid valve is normal in appearance and function. Mild tricuspid regurgitation is present. The pulmonary artery pressure is normal. Right ventricular systolic pressure measures 28mmHg. Pulmonic Valve: The pulmonic valve is normal in appearance and function. There is no pulmonic regurgitation seen. Aorta: The aorta is normal. Normal size aortic root measuring 2.7 cm. Normal size ascending aorta measuring 2.9 cm. IVC: The IVC is normal sized. Pericardium: Small to moderate pericardial effusion. There is a circumferential pericardial effusion present measuring 1.6 cm. (No Signature Object) Patient: ISIDRA TANNER Study Date: 05/21/2018 Page 2 of 2 11:04 AM [id number]
[2018-05-21] MEDS ORDERED: hydrALAZINE 20 MG/ML VIAL IVP PRN (14:04)
[2018-05-21] MEDS ORDERED: IPRATROPIUM/ALBUTEROL 3 ML DEYVIAL IH PRN (14:06)
--- NOTE | 2018-05-21 14:47 | CPEKG ---
Heart Rate: 95 RR Interval: 632 P-R Interval: 156 QRSD Interval: 88 QT Interval: 356 QTC Interval: 448 P Greenwich: 82 QRS Greenwich: 40 T Wave Greenwich: 40 EKG Severity - NORMAL ECG - EKG Impression: SINUS RHYTHM Electronically Signed By: Trey Huynh 23-May-2018 02:36:48
--- NOTE | 2018-05-21 15:00 | ASMTCMCOM ---
CM Note CM Note Notes: Met with pt, she lives in an apartment alone and uses a walker. She has a daughter in town who helps her. Her son just moved to [place] and will help once he gets settled, her 3rd child lives in [place]. CM discussed poc with pt, PT recommending SNF vs home w/24hr care. Pt declines the need for 24hr care. " Once i'm in my home, i'm good" Pt does say that she is current with [facility] (RN/PT). Pt's preference is to return home with current HC. DC Plan: Home Care/ [facility] (RN/PT) Date Signed: 05/21/2018 02:59 PM Electronically Signed By:Suzanne Basurto RN
[2018-05-21] MEDS: METOPROLOL SUCCINATE XR 25 MG TAB PO SCH (15:39)
--- NOTE | 2018-05-21 15:39 | GCON ---
CONSULTATION CARDIOLOGY CONSULTATION REFERRING PHYSICIAN: Dr. Kate SUPERVISING WEATHERSTRIP MACHINE OPERATOR: Dr. Jacinta Holguin. INDICATION FOR CARDIOLOGY CONSULTATION: New found pericardial effusion and cardiomyopathy. REFERRING PHYSICIAN: Dr. Kate of hospital services. HISTORY OF PRESENT ILLNESS: Ms. Do is a 72-year-old female with significant past history that includes tobacco abuse, previous EtOH abuse, hyponatremia, and recently presumed metastatic lung cancer. She presented to the emergency department for hypoxia with concerns about potential pneumonia from her PCP's office yesterday afternoon. She unfortunately recently was hospitalized for hyponatremia, which she has been maintaining fluid restriction on. At her previous hospitalization, it was noted on x-ray to have a right peripheral fullness, and was offered to have a CT scan at that time, she declined. She recently underwent CT scan on May 09, which showed a large right hilar mass extending into the mediastinum. She has recently underwent biopsy of the right subclavian mass, currently pathology is pending. She also had a PET scan, which showed possible metastatic disease into her lumbar spine. She reports more recently she has been noticing significantly more shortness of breath with any exertion. She reports she has had no chest pain or pressure. She reports no history of palpitations, lightheadedness, PND, edema, near-syncope, or syncopal events. She reports no recent fevers, chills, night sweats. She does report she has had mild weight loss. Upon arrival into the hospital, she did have a chest x-ray done which showed increase in mediastinal and hilar lymphoma with increased right pleural effusion as well as thickening of the right upper lobe, possibly due to pneumonia. Her room air oxygen saturation was 85% and was admitted to the hospital for further evaluation. This morning, she did undergo echocardiogram, which noted mildly reduced LV systolic function with EF of 43% with mild global hypokinesis. It was also noted that she had a small to moderate circumferential pericardial effusion measuring 1.2 to 1.6 cm with no tamponade physiology. Her cardiac risk factors include age, previous smoker, and questionable family history of coronary artery disease. PAST MEDICAL HISTORY: 1. EtOH abuse in which she quit in 2011. 2. Hyponatremia with recent hospitalization in March of 2018. 3. Tobacco abuse in which she reports smoking for greater than 40 years, quitting 2 years ago. 4. Insomnia. 5. Depression. 6. Hypertension. PAST SURGICAL HISTORY: Include: 1. Right hip surgery. 2. Bilateral wrist surgeries. 3. Left humerus surgery. 4. Recent biopsy. FAMILY HISTORY: Patient reports father having lung cancer, mother having peripheral vascular disease. She reports paternal grandfather had an GA which caused his in his early 60s. 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 She is . She reports smoking for greater than 40 years, quitting 2 weeks ago. She also reports history of EtOH abuse in which she has not drank in 12 years. She denies any illicit drug use. ALLERGIES: She has no known drug allergies. HOME MEDICATIONS: Include NicoDerm patch 14 mg daily, Restoril 15 mg p.o. h.s. , Zoloft 100 mg p.o. daily, ibuprofen 600 mg p.o. t.i.d., Norvasc 2.5 mg daily. REVIEW OF SYSTEMS: A 10-point review of systems all done, all negative except as mentioned above. PHYSICAL EXAMINATION: GENERAL: Thin, elderly appearing, more older in appearance than actual age, female. She is alert and oriented to person, place, time, and situation. Appears to be under no acute distress. VITAL SIGNS: Current blood pressure is 174/99, heart rate is 90 and regular, respirations are 16, saturating 97% on 2 L nasal cannula, temperature 36.3 degrees Celsius. HEENT: Head is normocephalic. Lips and tongue are pink and moist with no signs of cyanosis. Conjunctivae pink. NECK: Trachea is midline , +2 carotid pulses bilateral. Jugular vein elevation 4-5 cm above sternal notch at a 45-degree angle. RESPIRATORY: Lungs are diminished in bases, but no rhonchi, rales or wheezing noted. CARDIAC: Regular rate, regular rhythm, S1 , S2, a 1/6 systolic murmur noted along the left sternal border. ABDOMEN: Soft , nontender, bowel sounds x4 quadrants, no organomegaly, no palpable masses. SKIN: Tanned, warm, dry, noted a mild skin laceration on left arm, moderate hematoma on right forearm. No cyanosis, no clubbing, no peripheral edema. VASCULAR: +2 carotids bilateral, +2 radials bilateral, +1 dorsal pedal and posterior tibial pulses bilateral. LABORATORY DATA: Laboratory studies today show WBC of 9.73, hemoglobin of 10.9 , hematocrit 32.4, platelet count 195. INR of 1.0. Sodium 139, potassium 3.7, chloride 96, CO2 35, BUN 27, creatinine 0.5, glucose 113, magnesium 2.1. Total bilirubin 0.4, AST 51, ALT 65, alkaline phosphate 113, total protein 5.6, albumin 3.0. Patient noted on admission to have a troponin of less than 0.00. STUDIES: Echocardiogram done today showing mild LV dysfunction with LVEF of 43 % with mild global hypokinesis. Mild diastolic dysfunction noted. Mild AI without . Mild MR without mitral valve prolapse, mild TR. Normal sized ascending thoracic aorta with noted along vascular wall, small to moderate circumferential pericardial effusion measuring 1.2 to 1.6 cm, various areas with no signs of tamponade. RVSP was measured at 28 mmHg. CTA of the chest done on May 20 showing new right upper lobe predominantly consolidation airspace disease. Consideration includes congestive edema secondary to intravenous constriction post obstruction pneumonia and pulmonary hemorrhage, increased pericardial effusion, right pleural effusion, severely constricted superior vena cava. No acute pulmonary artery thrombus. Moderate emphysema. ASSESSMENT AND PLAN: 1. Pericardial effusion: Noted on a previous CTA, confirmed by echocardiogram today, noting no signs of tamponade. At this time, no intervention, with plans of repeated limited echo on Wednesday. If significantly worse, due to the patient' s potential of this being metastasis effusion, would consider having CT Surgery evaluate patient for possible pericardial window if needed. At this time, I would recommend no significant diuresis or any medications that may reduce significant pre-load. We will continue to monitor. We will also order for her to be placed on continuous case monitor. Electrocardiogram ordered. 2. Newly found cardiomyopathy: Patient reports no chest pain or pressure. Reporting negative troponin or symptoms suggesting of ischemia. Echocardiogram noting ejection fraction of 43% with global hypokinesis. She is hypertensive today, heart rate is in the 90s. We will place her on metoprolol succinate at this time at 25 mg p.o. daily. Depending on her renal function and response to beta-desirae, may consider adding an HUMERA or ARB. Patient should have further risk stratification, stress testing, once she has been recovered from her acute hypoxic respiratory failure, and biopsy pathology has returned. 3. Acute hypoxic respiratory failure: Patient's oxygen saturation maintaining on oxygen therapy. Recent CTA ruled out PE. She has blood cultures that have been drawn. She has been started on antibiotic therapy by the hospital services. She recently had a biopsy for a right subclavian mass that was performed yesterday, results of the pathology are pending. 4. Presumed metastatic lung cancer: The patient with recent PET scan that looked like possible metastatic disease into her lumbar spine. Pending pathology. Hospital services have consulted Oncology. 5. History of hyponatremia: Sodium level within normal limits. Maintain fluid restrictions. 6. Hypertension: Patient with noted history of hypertension, blood pressure elevated this afternoon. She has been resumed on her home dose of Norvasc, metoprolol succinate started as mentioned above. Will monitor re-evaluate. Thank you for this consultation, we will be glad to follow along with you. /[id number]/MODL MTDD
--- NOTE | 2018-05-21 16:11 | PDMN ---
Medical Necessity Medical necessity: est los>2mn for acute hypoxic resp failure presumed r/t lung cancer w/possible post obstructive PNA, hyponatremia, and severe protein calorie malnutrition; admit for IV abx, follow cx's, IVF, and onc consult; per order and H&P 05/20/18
--- NOTE | 2018-05-21 17:08 | HOSPPROG ---
Hospitalist Progress Note Assessment/Plan: Subjective Follow-up on suspected pneumonia and respiratory failure. Cardiology called me this afternoon after reviewing her echocardiogram and reported that she had a small to moderate-sized pericardial effusion without any evidence of tamponade. They will provide of formal consultation for recommendations. I saw the patient along with her nurse today and it was noted that she has been able to wean off of oxygen and currently on room air doing reasonably well. Patient states she is doing reasonably well in regards to not smoking and having the nicotine patch here in the hospital. No hemoptysis complaints. Objective Vital signs as detailed below Physical exam General-patient appears comfortable she is sitting in a chair at the bedside no acute distress awake alert conversant Heart-regular no murmurs noted somewhat soft heart sounds no rubs appreciated Lungs-surprisingly clear on exam with no significant crackles or wheezing Abdomen-soft nontender nondistended -no Eckert catheter in place Extremities-no significant edema Musculoskeletal-no calf pain with palpation Skin-venous distension in her anterior chest Labs as detailed below Assessment and plan Acute hypoxic respiratory failure-suspecting secondary to postobstructive pneumonia. I would also give consideration to a hemorrhage however she has not had any complaints of hemoptysis. Her lungs are surprisingly clear on exam and she has been able to wean on to room air today which are both positive indicators. Continue with scheduled nebulizers and antibiotic therapy. Pneumonia-potentially postobstructive continue with current ceftriaxone and azithromycin. Lung cancer-likely non-small cell lung cancer which is metastatic. Patient had a supraclavicular node biopsied earlier this week and has an upcoming followup with Dr. Champagne next week to follow up on the results. Pericardial effusion-possibly malignant. No tamponade noted on echocardiogram. I appreciate cardiology's assistance and recommendations on this issue. Hyponatremia-improved with a sodium level 139. Hypokalemia-improved with a potassium level 3.7 this morning. Continue will recheck tomorrow. Tobacco use the-patient doing well with nicotine patch Anemia-recheck again tomorrow morning. No clinical blood loss Elevated blood pressures-likely hypertensive patient has been started on amlodipine and metoprolol Systolic heart failure-this may be acute and secondary to the effusion. No previous the symptoms to suggest a chronic heart failure. Continue per cardiology's recommendations. Depression continue sertraline DVT prophylaxis Lovenox Disposition-depending on her clinical response may be old transition her to oral antibiotics and discharge back to home to keep her outpatient oncology consultation. Objective: Vital Signs Temp Pulse Resp BP Pulse Ox 36.4 C 96 16 156/95 H 92 05/21/18 16:00 05/21/18 16:00 05/21/18 16:00 05/21/18 16:00 05/21/18 16:00 Laboratory Results 05/21/18 05:10 05/21/18 05:10 05/20/18 05/21/18 05/22/18 05:59 05:59 05:59 Intake Total 305 Output Total 500 Balance -195 PT 13.4 SEC (12.0-15.0) 05/21/18 05:10 INR 1.00 (0.83-1.16) 05/21/18 05:10 ICD10 Worksheet Patient Problems: Problems Problem Status Onset Hypoxemia Acute Gait abnormality Acute Hyponatremia Acute
[2018-05-21] MEDS: TEMAZEPAM 15 MG CAP PO PRN (22:20)
[2018-05-22] MEDS: ACETAMINOPHEN 500 MG TAB PO SCH ×3 (00:51→16:03)
[2018-05-22 05:39] LABS: PLATELET COUNT 230 10^3/uL (150-400)
[2018-05-22] MEDS: SERTRALINE HCL 100 MG TAB PO SCH (08:03)
[2018-05-22] MEDS: IBUPROFEN 200 MG TAB PO SCH ×3 (08:04→22:12)
[2018-05-22] MEDS: METOPROLOL SUCCINATE XR 25 MG TAB PO SCH (08:04)
[2018-05-22] MEDS: NICOTINE 14 MG/24 HR PATCH TD SCH (08:05)
[2018-05-22] MEDS: ENOXAPARIN 40 MG/0.4 ML SYR SC SCH (08:05)
[2018-05-22] MEDS: AZITHROMYCIN IV 500 MG in NS 250 ML IV SCH (08:55)
--- NOTE | 2018-05-22 12:03 | SOAPPROG ---
EDWARD Progress Note Assessment/Plan: 1. Pericardial effusion - Pt has a small to moderate sized pericardial effusion by Echocardiogram on 05/20 with out tamponade physiology. Suspect secondary to underlying lung process. She is not tachycardic or hypotensive. --> Repeat echocardiogram in am to evaluate for progression --> Pericardiocentesis vs pericardial window for hemodynamic instability 2. Cardiomyopathy - Pt has global LV hypokinesis with an EF of 43% by echocardiogram on 05/20. No significant valvular abnormalities or arrhythmias noted. Pt will need angiogram vs stress test to further evaluate her condition. Pt reports QUAN but denies orthopnea, PND, and edema. She was started on metoprolol on 05/21. --> losartan 25 mg daily 3. Lung mass - Pt was diagnosed with a long mass concerning for lung cancer. Possible metastatic disease to lumbar spine by PET scan. Await bx results 05/22/18 12:12 Subjective: No chest pain No orthopnea or PND dyspnea with exertion No edema + cough Objective: Vital Signs Temp Pulse Resp BP Pulse Ox 36.6 C 83 18 168/96 H 89 L 05/22/18 07:37 05/22/18 07:37 05/22/18 07:37 05/22/18 07:37 05/22/18 07:37 Laboratory Results 05/22/18 04:20 05/22/18 04:20 05/21/18 05/22/18 05/23/18 05:59 05:59 05:59 Intake Total 305 600 Output Total 500 800 Balance -195 -200 PT 13.4 SEC (12.0-15.0) 05/21/18 05:10 INR 1.00 (0.83-1.16) 05/21/18 05:10 Physical Exam - Physical Exam General Appearance: alert, no apparent distress Neck: other Respiratory: other (deminished breath sounds R base) Cardiac/Chest: regular rate, rhythm Abdomen: non-tender, soft Extremities: No pedal edema Neuro/Psych: alert, oriented x 3 ICD10 Worksheet Patient Problems: Problems Problem Status Onset Hypoxemia Acute Gait abnormality Acute Hyponatremia Acute
--- NOTE | 2018-05-22 18:39 | HOSPPROG ---
Hospitalist Progress Note Assessment/Plan: Subjective Follow-up on suspected pneumonia and pericardial effusion and metastatic lung cancer. Overnight no acute events patient was actually able to wean off of oxygen completely and has done quite well throughout the day today. We reviewed her pericardial effusion and cardiology's recommendations on medications. She has not had any additional questions and we reviewed that we are still waiting for her pathology results to come back. Objective Vital signs as detailed below Physical exam General-patient appears comfortable she is ambulating within her room with front wheeled walker assistance Heart-regular rate and rhythm no murmurs appreciated Lungs clear on auscultation with normal respiratory effort Abdomen-soft nontender nondistended -no Eckert catheter in place Extremities no significant pitting edema Skin venous distention in her anterior chest noted Labs as detailed below Assessment plan Acute hypoxic respiratory failure-this may be resolved at this time she has been able to wean down to room air. Suspecting secondary to potential postobstructive pneumonia from her long underlying lung mass. No complaints of hemoptysis. Her lung exam is again surprisingly clear considering her lung pathology. Pneumonia-appears to be responding to current ceftriaxone azithromycin. Continue. Lung cancer-likely non-small cell lung cancer which is metastatic. Patient is status post supraclavicular node biopsy and results are currently pending. She had follow-up with Dr. Champagne scheduled for later this week. Pericardial effusion-possibly min malignant. I appreciate cardiology's assistance on the case she will have a follow-up echocardiogram tomorrow morning. Tobacco use-she appears to be doing fine with nicotine patch Anemia-continue to trend. Possibly related to chronic disease. Elevated blood pressures no prior diagnosis of hypertension. Losartan has been added in light of her decreased ejection fraction. Systolic heart failure-continue per cardiology's recommendations. She is currently on a beta-desirae and ARB. Depression-continue sertraline DVT prophylaxis-Lovenox Disposition-this will been on reassessment of her effusion with her echocardiogram tomorrow. Objective: Vital Signs Temp Pulse Resp BP Pulse Ox 36.4 C 94 18 164/93 H 90 L 05/22/18 15:06 05/22/18 15:06 05/22/18 15:06 05/22/18 15:06 05/22/18 15:06 Laboratory Results 05/22/18 04:20 05/22/18 04:20 06/05/22/18 05/23/18 05:59 05:59 05:59 Intake Total 305 600 Output Total 500 800 Balance -195 -200 PT 13.4 SEC (12.0-15.0) 05/21/18 05:10 INR 1.00 (0.83-1.16) 05/21/18 05:10 ICD10 Worksheet Patient Problems: Problems Problem Status Onset Hypoxemia Acute Gait abnormality Acute Hyponatremia Acute
[2018-05-22] MEDS: TEMAZEPAM 15 MG CAP PO PRN (22:27)
[2018-05-23] MEDS: ACETAMINOPHEN 500 MG TAB PO SCH ×3 (01:55→16:20)
[2018-05-23 04:27] LABS: PLATELET COUNT 242 10^3/uL (150-400)
[2018-05-23] MEDS ORDERED: POTASSIUM CL 10 MEQ TAB PO ONE (07:23)
[2018-05-23] MEDS: LOSARTAN POTASSIUM 25 MG TAB PO SCH (07:52)
[2018-05-23] MEDS: ENOXAPARIN 40 MG/0.4 ML SYR SC SCH (07:53)
[2018-05-23] MEDS: SERTRALINE HCL 100 MG TAB PO SCH (07:53)
[2018-05-23] MEDS: NICOTINE 14 MG/24 HR PATCH TD SCH (07:53)
[2018-05-23] MEDS: METOPROLOL SUCCINATE XR 25 MG TAB PO SCH (07:53)
[2018-05-23] MEDS: AZITHROMYCIN IV 500 MG in NS 250 ML IV SCH (08:50)
[2018-05-23] MEDS: IBUPROFEN 200 MG TAB PO SCH ×3 (09:03→21:44)
--- NOTE | 2018-05-23 11:25 | ECHO ---
[email or web address] [address] [address] Main: [phone] Fax: Transthoracic Echocardiogram Name: ISIDRA TANNER MR#: [id number] Study Date: 05/23/2018 Study Time: 09:48 AM Date of : 1945 Age: 72 year(s) Height: 160 cm (63 in.) Weight: 43.09 kg (95 lb.) BSA: 1.41 m2 Gender: Female Examination: Limited Echo Indication: F/U Pericardial Effusion Image Quality: Contrast: Requested by: Jean-Pierre Clark BP: 150 mmHg/98 mmHg Heart Rate: Rhythm: Indication: F/U Pericardial Effusion Procedure Staff Senior Analyst: Khris Song RDCS Reading Physician: Kev Monroy MD Requesting Provider: Conclusions: Small to moderate pericardial effusion with right atrial collapse. Normal right ventricular systolic function without diastolic collapse. Normal LV systolic function. No change from study of May 21. Measurements: Chambers Valvular Assessment AV/MV Valvular Assessment TV/PV Normal Normal Normal Name Value Range Name Value Range Name Value Range Continued Measurements: Findings: Exam Comments: There is a small to moderate circumferencial pericardial effusion from 1.0cm to 1.6cm. There is right atrial collapse. . (No Signature Object) Patient: ISIDRA TANNER Study Date: 05/23/2018 Page 1 of 1 09:48 AM [id number]
[2018-05-23] MEDS ORDERED: ALTEPLASE 2 MG VIAL IVP PRN (13:38)
--- NOTE | 2018-05-23 15:36 | ASMTCMCOM ---
CM Note CM Note Notes: Spoke with patient who confirmed she does not want to do SNF rehab but prefers home health care. Patient confirms she would like [facility]. Spoke with [facility] who has received the referral and accepts the patient. Agreed to notify patient's daughter to let her know the d/c plan. CM will follow. Date Signed: 05/23/2018 03:35 PM Electronically Signed By:Eve Calles LCSW
--- NOTE | 2018-05-23 16:55 | SOAPPROG ---
SOAP Progress Note Assessment/Plan: Assessment: Pt known to me from clinic. Biopsy done 05/19 shows small cell lung cancer. Extensive stage based on imaging. Discussed prognosis and treatment with patient. Disease is not curable but typically very chemo-sensitive. Standard regimen is carboplatin/etoposide. She will have a PICC placed. Anticipate d/c tomorrow - will arrange for chemo teaching and to start Rx next week. She might also be eligible for a clinical trial of carbo/etoposide +/- nivolumab ([id number]). Will also order brain MRI to complete her staging. 30 min spent w/ pt and in coordination of care. Plan: 05/23/18 16:51 Objective: Vital Signs Temp Pulse Resp BP Pulse Ox 36.8 C 96 20 162/85 H 92 05/23/18 15:44 05/23/18 15:44 05/23/18 15:44 05/23/18 15:44 05/23/18 15:44 Laboratory Results 05/23/18 04:15 05/23/18 04:15 05/22/18 05/23/18 05/24/18 05:59 05:59 05:59 Intake Total 600 Output Total 800 1400 Balance -200 -1400 PT 13.4 SEC (12.0-15.0) 05/21/18 05:10 INR 1.00 (0.83-1.16) 05/21/18 05:10 ICD10 Worksheet Patient Problems: Problems Problem Status Onset Chronic Disease mgmt/Transitional care Acute Hypoxemia Acute Gait abnormality Acute Hyponatremia Acute
--- NOTE | 2018-05-23 18:36 | HOSPPROG ---
Hospitalist Progress Note Assessment/Plan: Subjective Follow-up on suspected pneumonia and pericardial effusion and small cell lung cancer. Dr. Champagne called me today to discuss the biopsy results. This showed a small cell lung carcinoma. We discussed that she is actually doing overall very well from medical standpoint and is on room air. We discussed home placing a PICC line today and then planning for discharge potentially tomorrow and then to plan on outpatient chemotherapy. Objective Vital signs as detailed below Physical exam General-patient appears comfortable she is ambulating in her room with front wheeled walker no acute distress Heart-regular rate and rhythm no murmurs appreciated Lungs-clear auscultation with normal respiratory effort no significant wheezing appreciated Abdomen-soft nontender nondistended -no Eckert catheter in place Extremities-no significant pitting edema Skin-venous distention in her anterior chest Labs as detailed below Acute hypoxic respiratory failure-resolved at this time as she has been able to wean down to room air and has done very well the past days. Pneumonia-improving with the current ceftriaxone and azithromycin. Lung cancer-small cell lung carcinoma. Patient will have a PICC line placed today and will plan on outpatient follow-up to start chemotherapy with Dr. Champagne. Pericardial effusion-likely malignant. Appreciate cardiology's assistance on the case and will need short-term follow up with Cardiology for ongoing following regarding the effusion. Tobacco use-she appears to be doing fine with nicotine patch Elevated blood pressures-no prior history of hypertension. She has been started on losartan and metoprolol during this hospitalization in light of her decreased ejection fraction. Systolic heart failure-the continue per Cardiology recommendations. She is currently on a beta-desirae and ARB. Depression-continue sertraline DVT prophylaxis Lovenox Disposition-medically she has done very well over the past days and I think she likely can be changed to oral antibiotics and discharged tomorrow with followups with Cardiology and Oncology. Objective: Vital Signs Temp Pulse Resp BP Pulse Ox 36.8 C 96 20 162/85 H 92 05/23/18 15:44 05/23/18 15:44 05/23/18 15:44 05/23/18 15:44 05/23/18 15:44 Laboratory Results 05/23/18 04:15 05/23/18 04:15 05/22/18 05/23/18 05/24/18 05:59 05:59 05:59 Intake Total 600 Output Total 800 1400 Balance -200 -1400 PT 13.4 SEC (12.0-15.0) 05/21/18 05:10 INR 1.00 (0.83-1.16) 05/21/18 05:10 ICD10 Worksheet Patient Problems: Problems Problem Status Onset Chronic Disease mgmt/Transitional care Acute Hypoxemia Acute Gait abnormality Acute Hyponatremia Acute
[2018-05-23] MEDS ORDERED: GADOBUTROL 10 ML VIAL IVP ONE (20:27)
[2018-05-23] MEDS ORDERED: POTASSIUM CL 20 MEQ/15 ML UDCUP PO ONE (22:00)
[2018-05-23] MEDS: TEMAZEPAM 15 MG CAP PO PRN (23:13)
[2018-05-24] MEDS: ACETAMINOPHEN 500 MG TAB PO SCH ×2 (02:43→09:01)
[2018-05-24 05:47] LABS: PLATELET COUNT 228 10^3/uL (150-400)
[2018-05-24] MEDS: SERTRALINE HCL 100 MG TAB PO SCH (07:42)
[2018-05-24] MEDS: METOPROLOL SUCCINATE XR 25 MG TAB PO SCH (07:42)
[2018-05-24] MEDS: NICOTINE 14 MG/24 HR PATCH TD SCH (07:42)
[2018-05-24] MEDS: IBUPROFEN 200 MG TAB PO SCH (07:42)
[2018-05-24] MEDS: LOSARTAN POTASSIUM 25 MG TAB PO SCH (07:42)
[2018-05-24] MEDS: ENOXAPARIN 40 MG/0.4 ML SYR SC SCH (07:43)
[2018-05-24] MEDS: AZITHROMYCIN IV 500 MG in NS 250 ML IV SCH (08:28)
--- NOTE | 2018-05-24 09:36 | PDIAF ---
- Diagnosis Diagnosis: Lung Cancer, Pleural and pericardial effusion, gait instability, copd Code Status: Full Code - Medication Management Discharge Medications: Medications to Continue on Transfer amLODIPine BESYLATE [Norvasc 2.5 mg (*)] 2.5 mg PO DAILY #30 tab 04/18/18 [Last Taken Unknown] Ibuprofen [Motrin (*)] 600 mg PO TID 05/20/18 [Last Taken Unknown] Nicotine [Nicoderm Cq 14 mg (*)] 14 mg TD DAILY 05/20/18 [Last Taken Unknown] Sertraline HCl [Zoloft 100mg (*)] 100 mg PO DAILY 05/20/18 [Last Taken Unknown] Temazepam [Restoril 15 MG (*)] 15 mg PO HS PRN 05/20/18 [Last Taken Unknown] Fluticasone/Salmeter 100/50Mcg [Advair 100/50 (*)] 1 puffs IH BID #1 disk [Last Taken Unknown] Losartan Potassium [Cozaar 25 mg (*)] 25 mg PO DAILY #30 tab 05/24/18 [Last Taken Unknown] Metoprolol Succinate Xr [Toprol Xl 25 mg (*)] 25 mg PO DAILY #30 tab 05/24/18 [ Last Taken Unknown] Additional Medication Instructions: Please observe to see that pt understands how to use her inhaler which is new for her Discharge Medications: Refer to the Discharge Home Medication list for PRN reason. - Orders Services needed: Home Care, Registered Nurse, Physical Therapy Home Care Face to Face: I certify that this patient was under my care and that I had the required [id number] encounter meeting the encounter requirements on the discharge day. My findings support the fact that the patient is homebound as defined in Home Care Face to Face Continued: CMS Chapter 7 Medicare Benefits Manual 30.1.1 , The condition of the patient is such that there exists a normal inability to leave home and consequently, leaving home would require a considerable and taxing effort. Isolation Type: None Diet Recommendation: no restrictions on diet Diet Texture: Regular Texture Diet, Gross Thick Liquids, Meds Whole w/Liquids Activity/Weight Bearing Restrictions: full weight bear Additional Instructions: Go to appointment with Dr Champagne next week as planned Make an appointment with [facility] in 3-4 weeks to follow the progress of the fluid around your heart If you become increasingly short of breath, you should seek urgent attention; it is likely due to increase in the fluid around your heart and lungs. - Follow Up Care Current Providers and Referrals: Yasmine Davis PA [Primary Care Provider] - As per Instructions
--- NOTE | 2018-05-24 09:38 | PDDCSUM ---
Discharge Summary Discharge Summary: DISCHARGE DIAGNOSES: * acute hypoxemic/hypercarbic respiratory failure on chronic hypoxemia * community-acquired pneumonia, suspect bacterial * newly diagnosed right lung cancer, small cell, with right pleural effusion and pericardial effusion both suspected to be malignant * COPD * mildly reduced left ventricular systolic function at 43% with global cardiomyopathy by echocardiogram * chronic tobacco abuse CONSULTANTS: Dr. Joe Piedra PROCEDURES: CT scan chest Echocardiogram MRI of brain PICC line insertion HOSPITAL COURSE SUMMARY: This patient is a independent woman who comes in complaining of shortness of breath, and is found to have both a right upper lobe pneumonia as well as hilar lung mass with right pleural effusion and pericardial effusion. The pericardial effusion was read as mild to moderate with right atrial collapse but without right ventricular collapse. She was not in active heart failure at this time. She was treated for the pneumonia with antibiotics and has done quite well with that. This has led to some improvement in her breathing. There were no signs of sepsis, and there is no identified organism thus far on cultures or otherwise. In terms of evaluation for her tumor she has a left hilar lung mass with associated right pleural and pericardial effusions. A supraclavicular lymph node had been assessed in the outpatient setting prior to this admission with biopsy, and we now have information back that that small cell lung cancer. The patient has an MRI of the brain that is without any evidence of disease. She has an outpatient PET scan. In reviewing her situation she and Dr. Champagne have discussed options and she has agreed beginning chemotherapy starting next week [address] Champagne did review with her on this date of discharge that there is a new study involving standard chemotherapy, along with random is a ellsworth to either placebo or immune therapy with Nevolimumab. The patient after discussion is in agreement to signing up for this protocol if she is a candidate, so the Oncology nurse will be reviewing this with her today to see if she is a candidate. Either way the plan will still be to begin therapy in 6 days. At this time the patient's pericardial effusion is smaller moderate with right atrial collapse. Her right pleural effusion is fairly modest. She is seemingly no more short of breath than her usual at this time, though her shortness of breath is somewhat limiting in terms of physical activity to. She has just never really noticed this or paid attention to it and has not been treating COPD. It is recommended to her that she return to the hospital promptly if she begins to get more short of breath as this likely represents worsening of her effusions which may need to be drained. Is also strongly recommended to her that we begin therapy at this time with Advair, and that we have her consider signing up for a pulmonary rehabilitation clinic. It was recommended that she get a yearly flu vaccine in the fall, and that she see her primary care physician to get caught up on pneumonia vaccines at this time. Is also noted that she has some nocturnal hypoxemia. If she does well with chemotherapy in the long run it will probably be in her interest to consider nocturnal oxygen in addition to all the above. These have all been discussed with the patient in detail and she understands these. PENDING TEST RESULTS: None MEDICATION CHANGES: Addition of Advair inhaler FOLLOW-UP PLAN: With Dr. Joe Champagne in 6 days to review final therapy options With Dr. Piedra at [facility] in 3-4 weeks with repeat echocardiogram considered Greater than 35 minutes bedside and care coordination time today
--- NOTE | 2018-05-24 09:43 | ASMTDCNOTE ---
Case Management Discharge Discharge Order Complete? Answers: Yes Patient to Obtain Answers: Independently Medications Transportation Arranged Answers: Family/Friends Faxed Final Orders Answers: Yes Family Notified Answers: Yes Discharge Comments Notes: Patient discharged to home. Orders for home PT/RN sent to [facility] - they are willing to accept. Her son and brother will take her home. Date Signed: 05/24/2018 09:43 AM Electronically Signed By:Mayda Chavez RN
--- NOTE | 2018-05-24 09:44 | ASMTLACE ---
AMINA Length of stay for Answers: 4-6 days current admission Acuity / Level of Answers: Yes Care: Did the patient have an inpatient admission? Comorbidities - select Answers: Any tumor (including all that apply lymphoma or leukemia) History of falls # of Emergency department Answers: 1-2 visits in the last 6 months Social determinants Answers: Mental health diagnosis (anxiety, depression, pers onality disorders, etc.) Score: 16 Date Signed: 05/24/2018 09:44 AM Electronically Signed By:Mayda Chavez RN
[2018-05-24] MEDS ORDERED: FLUTICASONE/SALMETER 100/50MCG DISKUS IH SCH (09:45)
[2018-05-24 15:30] VITALS: BP 147/88
== END 2018-05-24 17:12 | disposition home health service (06) | DRG 193 ==
LOC: F3E 16:54
PROVIDERS: ADMIT Hospitalist; ATTEND Hospitalist
PROC: 02HV33Z Insertion of Infusion Device into Superior Vena Cava, Percutaneous Approach (ICD-10-PCS; principal; 2018-05-23)
DX: J15.9 Unspecified bacterial pneumonia (principal); J96.21 Acute and chronic respiratory failure with hypoxia; J96.02 Acute respiratory failure with hypercapnia; C78.01 Secondary malignant neoplasm of right lung; I42.9 Cardiomyopathy, unspecified; J91.0 Malignant pleural effusion; I31.3 Pericardial effusion (noninflammatory); J44.9 Chronic obstructive pulmonary disease, unspecified; I10 Essential (primary) hypertension; Z72.0 Tobacco use; Z80.1 Family history of malignant neoplasm of trachea, bronchus and lung
CPT/HCPCS: 84484-PO; 86705-90; 92610-GN; 97116-GP; 97161-GP; 97166-GO; 97530-GP; 97535-GO; A9585; C1751; G8978-GP-CI; G8979-GP-CH; G8987-GO-CJ; G8988-GO-CI; G8989-GO-CI; G8996-GN-CI; G8997-GN-CI; G8998-GN-CI; J0456; J0696; J1650; Q9967

== ENCOUNTER 2018-05-25 09:16 | Emergency (ER) | payer OTHER, MEDICAID ==
--- NOTE | 2018-05-25 09:28 | EDPHY ---
H & P Stated Complaint: SOB, recent d/c from hosp Time Seen by Provider: 05/25/18 09:27 HPI/ROS: CHIEF COMPLAINT: Dyspnea HISTORY OF PRESENT ILLNESS: The patient presents to the ED by EMS with complaints of acutely worsening dyspnea. Patient was discharged from the hospital yesterday where she has recently been diagnosed with a pleural and pericardial effusion. The patient is also diagnosed with small cell lung cancer and is scheduled to begin outpatient treatment with Oncology in the week. The patient reportedly woke up at 5 o'clock in the morning with fatigue. She has been experiencing back pain. Home health arrive to evaluate the patient today and she was so weak that she could not stand up and they advised that she return to the hospital. The patient tells me that she had oxygen scheduled to be delivered for use at night. She has not yet received her oxygen. She was noted to have an O2 saturation of 85% on room air. REVIEW OF SYSTEMS: A comprehensive 10 point review of systems is otherwise negative aside from elements mentioned in the history of present illness. Source: Patient - Personal History Current Tetanus/Diphtheria Vaccine: Yes Current Tetanus Diphtheria and Acellular Pertussis (TDAP): Yes - Medical/Surgical History Hx Asthma: No Hx Chronic Respiratory Disease: No Hx Diabetes: No Hx Cardiac Disease: No Hx Renal Disease: No Hx Cirrhosis: No Hx Alcoholism: Yes Hx HIV/AIDS: No Hx Splenectomy or Spleen Trauma: No Other PMH: alcoholism/depression/r hip and wrist fx/l humeral fx, lung cancer - Social History Smoking Status: Former smoker - Physical Exam Exam: General Appearance: Thin female, no acute distress Eyes: Pupils equal and round no pallor or injection ENT, Mouth: Mucous membranes moist Respiratory: Mild tachypnea, lungs clear to auscultation bilaterally Cardiovascular: Regular rate and rhythm Gastrointestinal: Abdomen is soft and nontender, no masses, bowel sounds normal Neurological: 5/5 strength all 4 extremities Skin: Warm and dry, no rashes Musculoskeletal: Neck is supple nontender Constitutional: Initial Vital Signs Temperature (C) 36.4 C 05/25/18 09:24 Heart Rate 96 05/25/18 09:24 Respiratory Rate 18 05/25/18 09:24 Blood Pressure 147/99 H 05/25/18 09:24 O2 Sat (%) 85 L 05/25/18 09:24 O2 Delivery Mode Room Air O2 (L/minute) 2 Allergies/Adverse Reactions: No Known Allergies Allergy (Verified 05/20/18 14:41) Home Medications: Medication Instructions Recorded amLODIPine BESYLATE [Norvasc 2.5 2.5 mg PO DAILY #30 tab 04/18/18 mg (*)] Ibuprofen [Motrin (*)] 600 mg PO TID 05/20/18 Nicotine [Nicoderm Cq 14 mg (*)] 14 mg TD DAILY 05/20/18 Sertraline HCl [Zoloft 100mg (*)] 100 mg PO DAILY 05/20/18 Temazepam [Restoril 15 MG (*)] 15 mg PO HS PRN 05/20/18 Fluticasone/Salmeter 100/50Mcg 1 puffs IH BID #1 disk 05/24/18 [Advair 100/50 (*)] Losartan Potassium [Cozaar 25 mg 25 mg PO DAILY #30 tab 05/24/18 (*)] Metoprolol Succinate Xr [Toprol Xl 25 mg PO DAILY #30 tab 05/24/18 25 mg (*)] Medical Decision Making - Diagnostics EKG Interpretation: EKG: Complete interpretation has been separately recorded in the [facility] archive. Summary impression: Sinus rhythm, rate 92 Imaging Results: Imaging Impressions Chest X-Ray 05/25/18 09:30 Impression: 1. Right hilar mass with right superior mediastinal lymphadenopathy and fullness right supraclavicular region once again noted. 2. Prominent interstitial markings diffusely right lung more prominent to the right upper lobe. This could be related to lymphangitic carcinomatosis versus possibility of postobstructive interstitial pneumonia. ED Course/Re-evaluation: The patient presents to the ED after an episode of fatigue and weakness with associated hypoxemia. The patient had not yet established home oxygen. She was noted to have stable vital signs in the ED aside from mild hypoxemia. Chest x-ray demonstrates stable disease without a significant pleural effusion. The patient was placed on oxygen and is now ambulatory. She is chronically deconditioned. I find no evidence of an acute medical condition. Consultation was made with case management who reviewed the patient's inpatient course. There was a recommendation made that the patient be considered for possible placement into a half-way facility. Case management is investigating the possibility of a direct placement into a SNF. Update at 12:00 p.m.: The patient has been accepted for admission to [facility]. Differential Diagnosis: Differential diagnosis considered includes pleural effusion, pericardial effusion, pneumonia, pneumothorax, dehydration Departure - Departure Disposition: Home, Routine, Self-Care Clinical Impression: Hypoxemia, Lung cancer Condition: Fair Referrals: Patient,NotPresent [Unknown] - As per Instructions
--- NOTE | 2018-05-25 09:41 | CPEKG ---
Heart Rate: 92 RR Interval: 652 P-R Interval: 164 QRSD Interval: 88 QT Interval: 340 QTC Interval: 421 P Iota: 80 QRS Iota: 59 T Wave Iota: -8 EKG Severity - ABNORMAL ECG - EKG Impression: SINUS RHYTHM Electronically Signed By: Baldo Wells 25-May-2018 10:05:14
[2018-05-25] MEDS ORDERED: IOPAMIDOL (ISOVUE-300) 100 ML BTL ONE (12:17)
[2018-05-25 13:36] LABS: PLATELET COUNT 210 10^3/uL (150-400)
[2018-05-25 15:28] LABS: HEPATITIS C ANTIBODY TOTAL NEGATIVE (NEGATIVE); HIV TYPE 1 AND 2 NEGATIVE (NEGATIVE)
[2018-05-25 15:34] VITALS: BP 147/91
--- NOTE | 2018-05-25 16:49 | ASDISCHSUM ---
Discharge Information Plan Status:SNF Medically Cleared to Leave: Discharge Date:05/25/2018 03:33 PM CM D/C Disposition: ADT D/C Disposition:Home, Routine, Self-Care Projected Discharge Date:05/25/2018 11:00 AM Transportation at D/C: Discharge Delay Reason: Follow-Up Date:05/25/2018 11:00 AM Discharge Slot: Final Diagnosis: Placement Information Referral Type:*Group Home/SNF Referral ID:[id number] Provider Name:[facility] Address 1:[address] Address 2: City:[place] Selection Factors: State:[place] Patient Contact Information Contact Name:JORGE Relationship:Son Address: Work Phone: City:[place] Alternate Phone: State/Zip Code:[place] Email: Financial Information Financial Class:Medicare Primary Plan Desc:MEDICARE OUTPATIENT Primary Plan Number:[id number] Secondary Plan Desc:[place] Secondary Plan Number:[id number] Assessment Information Intervention Information
--- NOTE | 2018-05-25 17:20 | ASMTDCNOTE ---
Case Management Discharge Discharge Order Complete? Answers: Yes Transportation Arranged Answers: Other Notes: Nona Lee (Tuan) Transport will Pick (Date 05/25/2018 03:00 PM & Time) EMTALA Complete Answers: No Notes: N/A Discharge Comments Notes: Patient presented to the ER from home after discharging fron 3E last night; home with [facility]. RN, Dae visited the patient this morning and found her to be weak and hypoxic (see ER report for details). I met with patient and discussed possibility of discharging to SNF from the ER. This had been the recommendation from PT/OT while patient was in the hospital. Patient agrees with this plan and would like to go to [facility] I discussed the situation with Randolph, [facility] transitional progressive care unit registered nurse #[id number], Dae at [facility] #[id number], and contacted Cesia Alfred at [facility]. Referral via [employer] sent to along with Level 1 PASRR. Patient accepted for admission and transport arranged with Nona Lee. [facility] is following patient for a new diagnosis of small cell lung CA and patient has an appointment to start chemotherapy on Wednesday. Cesia is aware and will be coordinating discharge from SNF with patient's oncology appointment. Patient's daughter has been contacted (per patient) and will meet patient at [facility] this evening. Randolph (transitional care) and Dae ([facility]) updated on D/C plan and will follow patient with her return home and support services Date Signed: 05/25/2018 04:48 PM Electronically Signed By:Devora Gill RN
== END 2018-05-25 15:33 | disposition home or self-care (01) ==
LOC: EDUNIT#
DX: R09.02 Hypoxemia (principal); C34.90 Malignant neoplasm of unspecified part of unspecified bronchus or lung; Z87.891 Personal history of nicotine dependence
CPT/HCPCS: 71046; 74177; 93005; 99285; Q9967; G0472

== ENCOUNTER 2018-05-31 17:03 | Inpatient (IN) | payer OTHER, MEDICAID ==
[2018-05-31 17:50] LABS: PLATELET COUNT 146 10^3/uL (150-400)
--- NOTE | 2018-05-31 18:03 | EDPHY ---
H & P Stated Complaint: Diffuse abdominal pain. Being TX- lung CA Time Seen by Provider: 05/31/18 17:04 HPI/ROS: CHIEF COMPLAINT: Lower abdominal pain HISTORY OF PRESENT ILLNESS: This is a 72-year-old female with recently diagnosed small cell carcinoma of the lung. She is scheduled to begin chemotherapy later this week. She is currently residing at [facility] and is transferred here by ambulance. She is complaining of lower abdominal pain, worse on the left and in the suprapubic region. It began 3 days ago and has progressively worsened. She had one bout of vomiting today. She had a normal bowel movement earlier today. She has not noted any blood in her stool. She has not been aware of fever. She reports that an abdominal x-ray was performed at [facility] today but that no results were available. She mentions to me that she has had an increased oxygen requirement over the last day or 2. She normally wears nasal cannula oxygen and believes that she has been on 2 L or less with pulse ox readings in the low 90s. She has been feeling more short of breath over the past day or so. She is known to have a right pleural effusion. REVIEW OF SYSTEMS: A ten point review of systems was performed and is negative with the exception of the items mentioned in the HPI. She reports low back pain that has been persistent for some time. Past medical history: 1. Lung cancer 2. Hyponatremia 3. Osteopenia 4. Remote history of alcohol dependence, sober since 2001 5. Tobacco abuse 6. Depression Past surgical history: Orthopedic surgeries including right hip, bilateral wrists, hands, and left humerus Family history: Positive for lung cancer in her father. Diabetes runs in the maternal side of her family. Social history: Prior to her lung cancer diagnosis she was living independently. She quit smoking 2 weeks ago. She has not used alcohol for many years. No illicit drugs. General Appearance: Alert. Vital signs reviewed. Blood pressure 148/94 on arrival. Room air pulse ox 83%. On 4 L nasal cannula her pulse ox is 93%. Eyes: Pupils equal and round, no conjunctival injection, no discharge. Anicteric. ENT, Mouth: Mucous membranes are moist, no oropharyngeal erythema or edema. Neck: No lymphadenopathy, supple. Respiratory: Lungs are clear to auscultation; no wheezes, rales, or rhonchi. Cardiovascular: Regular rate and rhythm; no murmur, rub, or gallop. Gastrointestinal: Abdomen is soft with diffuse tenderness worse in the lower quadrants and suprapubic region., no guarding, no masses or organomegaly, bowel sounds present but slightly diminished. Skin: Warm and dry, no rashes on exposed skin, normal color. Skin is sun tanned. Back: Nontender to palpation over the thoracolumbar spine. No CVAT. Extremities: No lower extremity edema, no calf tenderness or swelling. Neurological: Alert and oriented. Moving all four extremities easily and equally. NINA. EOMI. She appears to have a mild right ptosis when she is at rest but she is able to fully and equally open both eyelids. Tongue is midline. Strength is 5/5 in upper and lower extremities. Sensation intact to light touch over both upper and lower extremities. Psychiatric: Normal affect. - Personal History Current Tetanus/Diphtheria Vaccine: Yes Current Tetanus Diphtheria and Acellular Pertussis (TDAP): Yes - Medical/Surgical History Hx Asthma: No Hx Chronic Respiratory Disease: No Hx Diabetes: No Hx Cardiac Disease: No Hx Renal Disease: No Hx Cirrhosis: No Hx Alcoholism: Yes Hx HIV/AIDS: No Hx Splenectomy or Spleen Trauma: No Other PMH: alcoholism/depression/r hip and wrist fx/l humeral fx, lung cancer - Social History Smoking Status: Former smoker Constitutional: Initial Vital Signs Temperature (C) 36.7 C 05/31/18 17:14 Heart Rate 100 05/31/18 17:14 Respiratory Rate 17 05/31/18 17:14 Blood Pressure 148/94 H 05/31/18 17:14 O2 Sat (%) 83 L 05/31/18 17:14 O2 Delivery Mode Nasal Cannula O2 (L/minute) 1 Allergies/Adverse Reactions: No Known Allergies Allergy (Verified 05/20/18 14:41) Home Medications: Medication Instructions Recorded amLODIPine BESYLATE [Norvasc 2.5 2.5 mg PO DAILY #30 tab 04/18/18 mg (*)] Ibuprofen [Motrin (*)] 600 mg PO TID 05/20/18 Nicotine [Nicoderm Cq 14 mg (*)] 14 mg TD DAILY 05/20/18 Sertraline HCl [Zoloft 100mg (*)] 100 mg PO DAILY 05/20/18 Temazepam [Restoril 15 MG (*)] 15 mg PO HS PRN 05/20/18 Fluticasone/Salmeter 100/50Mcg 1 puffs IH BID #1 disk 05/24/18 [Advair 100/50 (*)] Losartan Potassium [Cozaar 25 mg 25 mg PO DAILY #30 tab 05/24/18 (*)] Metoprolol Succinate Xr [Toprol Xl 25 mg PO DAILY #30 tab 05/24/18 25 mg (*)] Medical Decision Making - Diagnostics Imaging Results: Imaging Impressions Chest X-Ray 05/31/18 17:38 Impression: Right hilar mass with associated mediastinal adenopathy. Right perihilar opacity could reflect postobstructive pneumonia. Right pleural effusion and right basilar atelectasis/consolidation have progressed. Abdomen CT 05/31/18 18:01 Impression: 1. Moderate right pleural effusion and tiny left pleural effusion with areas of consolidation at the lung bases, most pronounced in the right lower lobe. 2. Metastatic nodularity and/or lymphadenopathy along the right paramediastinal space and caudal right internal mammary lymph node station. 3. Interval development of pneumoperitoneum, likely secondary to localized bowel perforation in the left lower quadrant of the abdomen, near the junction of the distal jejunum/proximal ileum and adjacent to the sigmoid colon where numerous diverticula are present (the colon is deemed the likely source for these findings). 4. Stable pericardial effusion. 5. Hepatic simple cysts and lower pole right renal cortical cyst. 6. Mild left paraaortic retroperitoneal lymphadenopathy. 7. Old moderate L2 compression fracture with dorsal retropulsion. 8. Mild uniform thickening of the central uterus at the level of the endometrial /myometrial junction. If the patient has any symptoms referable to this, dedicated pelvic sonography could be considered for further assessment. Findings were discussed with DANIA CAMP MD at 20:05, on 05/31/2018. ED Course/Re-evaluation: Patient was serially examined while in the emergency department. She continued with significant abdominal pain that actually seemed to worsen during her stay in the department. The time of my 3rd exam, which was following her CT scan, she had developed guarding. She was offered pain medicine but stated that she had received some on the ambulance and she did not want more. The CT scan showed pneumoperitoneum. Dr. Rutledge, general surgery, was consulted and the plan is for the patient go to the operating room. She received IV Flagyl and IV ceftriaxone preoperatively. I have also reviewed the patient's chest x-ray which shows right pleural effusion and right hilar mass. Please see formal report. Differential Diagnosis: I considered a differential diagnosis that includes but is not limited to metastatic disease, bowel obstruction, appendicitis, perforated viscus, diverticulosis/itis, urinary tract infection, pyelonephritis, and ureterolithiasis. - Data Points Laboratory Results: Laboratory Results 05/31/18 17:30 05/31/18 17:30 05/31/18 05/31/18 05/31/18 18:46 18:10 17:30 WBC RBC Hgb POC Hgb 10.9 gm/dL L gm/dL (12.6-16.3) Hct POC Hct 32 % L % (38-47) MCV MCH MCHC RDW Plt Count MPV Neut % (Auto) Lymph % (Auto) [place] % (Auto) Eos % (Auto) Baso % (Auto) Nucleat RBC Rel Count Absolute Neuts (auto) Absolute Lymphs (auto) Absolute Monos (auto) Absolute Eos (auto) Absolute Basos (auto) Absolute Nucleated RBC Immature Gran % Seg Neutrophils % Band Neutrophils % Lymphocytes % Monocytes % Eosinophils % Basophils % Metamyelocytes % Myelocytes % Promyelocytes % Blast Cells % Immature Gran # Absolute Seg Neuts Absolute Band Neuts Absolute Lymphocytes Absolute Monocytes Absolute Eosinophils Absolute Basophils Absolute Metamyelocyte Absolute Myelocytes Absolute Promyelocytes Absolute Plasma Cells Absolute Blast Cells Plasma Cells % Platelet Estimate Microcytic Cells Smear Review By POC Sodium 145 mEq/L mEq/L (135-145) Sodium 144 mEq/L mEq/L (135-145) POC Potassium 4.5 mEq/L mEq/L (3.3-5.0) Potassium 4.7 mEq/L mEq/L (3.3-5.0) POC Chloride 109 mEq/L mEq/L (97-110) Chloride 105 mEq/L mEq/L (97-110) Carbon Dioxide 30 mEq/l mEq/l (22-31) Anion Gap 9 mEq/L mEq/L (8-16) POC BUN 23 mg/dL mg/dL (7-23) BUN 25 mg/dL H mg/dL (7-23) Creatinine 0.6 mg/dL mg/dL (0.6-1.0) POC Creatinine 0.5 mg/dL L mg/dL (0.6-1.0) Estimated GFR > 60 Glucose 123 mg/dL H mg/dL (70-100) POC Glucose 137 mg/dL H mg/dL (70-100) Calcium 9.6 mg/dL mg/dL (8.5-10.4) Urine Color YELLOW Urine Appearance MODERATELY TURBID Urine pH 6.0 (5.0-7.5) Ur Specific [place] 1.021 (1.002-1.030) Urine Protein 2+ H (NEGATIVE) Urine Ketones TRACE H (NEGATIVE) Urine Blood NEGATIVE (NEGATIVE) Urine Nitrate NEGATIVE (NEGATIVE) Urine Bilirubin NEGATIVE (NEGATIVE) Urine Urobilinogen NEGATIVE EU EU (0.2-1.0) Ur Leukocyte Esterase NEGATIVE (NEGATIVE) Urine RBC NONE SEEN /hpf /hpf (0-3) Urine WBC 3-5 /hpf H /hpf (0-3) Ur Epithelial Cells TRACE /lpf /lpf (NONE-1+) Amorphous Sediment PRESENT /hpf /hpf (NONE-1+) Urine Mucus 1+ /lpf /lpf (NONE-1+) Urine Glucose NEGATIVE (NEGATIVE) 05/31/18 17:30 WBC 6.07 10^3/uL 10^3/uL (3.80-9.50) RBC 3.87 10^6/uL L 10^6/uL (4.18-5.33) Hgb 11.2 g/dL L g/dL (12.6-16.3) POC Hgb Hct 34.7 % L % (38.0-47.0) POC Hct MCV 89.7 fL fL (81.5-99.8) MCH 28.9 pg pg (27.9-34.1) MCHC 32.3 g/dL L g/dL (32.4-36.7) RDW 17.1 % H % (11.5-15.2) Plt Count 146 10^3/uL L 10^3/uL (150-400) MPV 9.8 fL fL (8.7-11.7) Neut % (Auto) Not Reported Lymph % (Auto) Not Reported [place] % (Auto) Not Reported Eos % (Auto) Not Reported Baso % (Auto) Not Reported Nucleat RBC Rel Count Not Reported Absolute Neuts (auto) Not Reported Absolute Lymphs (auto) Not Reported Absolute Monos (auto) Not Reported Absolute Eos (auto) Not Reported Absolute Basos (auto) Not Reported Absolute Nucleated RBC Not Reported Immature Gran % Not Reported Seg Neutrophils % 73.5 % % Band Neutrophils % 5.1 % % Lymphocytes % 14.3 % % Monocytes % 4.1 % % Eosinophils % 0 % % Basophils % 0 % % Metamyelocytes % 2.0 % % Myelocytes % 1.0 % % Promyelocytes % 0 % % Blast Cells % 0 % % Immature Gran # Not Reported Absolute Seg Neuts 4.46 10^/uL 10^/uL (1.70-6.50) Absolute Band Neuts 0.31 10^3/uL 10^3/uL (0.00-0.70) Absolute Lymphocytes 0.87 10^3/uL L 10^3/uL (1.00-3.00) Absolute Monocytes 0.25 10^3/uL L 10^3/uL (0.30-0.80) Absolute Eosinophils 0.00 10^3/uL L 10^3/uL (0.03-0.40) Absolute Basophils 0.00 10^3/uL L 10^3/uL (0.02-0.10) Absolute Metamyelocyte 0.12 10^3/mL H 10^3/mL (0.00-0.00) Absolute Myelocytes 0.06 10^3/mL H 10^3/mL (0.00-0.00) Absolute Promyelocytes 0.00 10^3/uL 10^3/uL (0.00-0.00) Absolute Plasma Cells 0.00 10^3/uL 10^3/uL (0.00-0.00) Absolute Blast Cells 0.00 10^3/uL 10^3/uL (0.00-0.00) Plasma Cells % 0 % % Platelet Estimate DECREASED L (ADEQ) Microcytic Cells 1+ H Smear Review By Pending POC Sodium Sodium POC Potassium Potassium POC Chloride Chloride Carbon Dioxide Anion Gap POC BUN BUN Creatinine POC Creatinine Estimated GFR Glucose POC Glucose Calcium Urine Color Urine Appearance Urine pH Ur Specific [place] Urine Protein Urine Ketones Urine Blood Urine Nitrate Urine Bilirubin Urine Urobilinogen Ur Leukocyte Esterase Urine RBC Urine WBC Ur Epithelial Cells Amorphous Sediment Urine Mucus Urine Glucose Medications Given: Discontinued Medications Ceftriaxone Sodium/Dextrose (Rocephin 1 Gm (Premix)) 50 mls @ 100 mls/hr IV EDNOW ONE PRN Reason: Protocol Stop: 05/31/18 21:39 Last Admin: 05/31/18 21:16 Dose: 50 mls Metronidazole/Sodium Chloride (Flagyl 500 Mg (Premix)) 100 mls @ 100 mls/hr IV ONCE ONE PRN Reason: Protocol Stop: 05/31/18 22:09 Last Admin: 05/31/18 21:19 Dose: 100 mls Point of Care Test Results: Chemistry 05/31/18 18:10 POC Sodium 145 mEq/L mEq/L (135-145) POC Potassium 4.5 mEq/L mEq/L (3.3-5.0) POC Chloride 109 mEq/L mEq/L (97-110) POC BUN 23 mg/dL mg/dL (7-23) POC Creatinine 0.5 mg/dL L mg/dL (0.6-1.0) POC Glucose 137 mg/dL H mg/dL (70-100) ISTAT H&H 05/31/18 18:10 POC Hgb 10.9 gm/dL L gm/dL (12.6-16.3) POC Hct 32 % L % (38-47) Departure - Departure Disposition: To OP Cath/Surgery Clinical Impression: Pneumoperitoneum Condition: Fair
[2018-05-31] MEDS ORDERED: IOPAMIDOL (ISOVUE-300) 100 ML BTL ONE (18:05)
[2018-05-31] MEDS ORDERED: BUPIVACAINE 0.25% 30 ML SDV ONE (21:36)
[2018-05-31] MEDS ORDERED: PROPOFOL 200 MG/20 ML VIAL ONE (21:46)
[2018-05-31] MEDS ORDERED: fentaNYL 100 MCG/2 ML INJ ONE ×2 (21:46→22:42)
[2018-05-31] MEDS ORDERED: SUCCINYLCHOLINE CHLORIDE 200 MG/10 ML SYR IVP ONE (21:50)
[2018-05-31] MEDS ORDERED: LIDOCAINE 2% 5 ML SDV ONE (21:50)
[2018-05-31] MEDS ORDERED: KETAMINE 500 MG/10 ML VIAL ONE (21:57)
[2018-05-31] MEDS ORDERED: ROCURONIUM 50 MG/5 ML VIAL ONE ×2 (22:21→23:34)
--- NOTE | 2018-05-31 22:53 | PDANEPAE ---
ANE History of Present Illness Patient presents for Exploratory Laparotomy ANE Past Medical History - Cardiovascular History Hx Hypertension: Yes Hx Chest Pain: Yes - Pulmonary History Hx COPD: Yes Hx Oxygen in Use at Home: Yes O2 in Use at Home (L/minute): 2 Hx Sleep Apnea: No - Endocrine History Hx Diabetes: No - Chronic Pain History Chronic Pain: No ANE Review of Systems Review of Systems: - Exercise capacity Exercise capacity: <4 METS ANE Patient History - Allergies Allergies/Adverse Reactions: No Known Allergies Allergy (Verified 05/20/18 14:41) - Home Medications Home medications: home medication list seen and reviewed Home Medications: Ibuprofen [Motrin (*)] 600 mg PO TID 05/20/18 [Last Taken Unknown] Nicotine [Nicoderm Cq 14 mg (*)] 14 mg TD DAILY 05/20/18 [Last Taken Unknown] Sertraline HCl [Zoloft 100mg (*)] 100 mg PO DAILY 05/20/18 [Last Taken Unknown] Temazepam [Restoril 15 MG (*)] 15 mg PO HS PRN 05/20/18 [Last Taken Unknown] - NPO status NPO Status: no food or drink >8 hours NPO Since - Liquids (Date): 05/31/18 NPO Since - Liquids (Time): 09:00 NPO Since - Solids (Date): 05/31/18 NPO Since - Solids (Time): 09:00 - Anes Hx Anes Hx: no prior problems - Smoking Hx Smoking Status: Former smoker ANE Labs/Vital Signs - Labs Result Diagrams: 05/31/18 17:30 05/31/18 17:30 - Vital Signs Blood Pressure: 132/81 Heart Rate: 102 Respiratory Rate: 20 O2 Sat (%): 95 Height: 160.02 cm Weight: 40.823 kg ANE Physical Exam - Airway Neck exam: FROM Mallampati Score: Class 1 Mouth exam: dentures - Pulmonary Pulmonary: expiratory wheeze - Cardiovascular Cardiovascular: regular rate and rhythym - ASA Status ASA Status: III, E ANE Anesthesia Plan Anesthesia Plan: general endotracheal anesthesia (FRANCIS MCCRACKEN discussed)
[2018-06-01] MEDS ORDERED: fentaNYL 100 MCG/2 ML INJ ONE (00:02)
[2018-06-01] MEDS ORDERED: SUGAMMADEX SODIUM 200 MG/2 ML VIAL IVP ONE (01:05)
[2018-06-01] MEDS ORDERED: PHENYLEPHRINE HCL 100 MCG/ML SYR ONE (01:05)
[2018-06-01] MEDS ORDERED: ONDANSETRON 4 MG/2 ML VIAL ONE (01:06)
[2018-06-01] MEDS ORDERED: DEXAMETHASONE 4 MG/ML VIAL ONE (01:06)
[2018-06-01] MEDS ORDERED: LIDOCAINE 2% 5 ML SDV ONE (01:06)
[2018-06-01] MEDS ORDERED: HYDROmorphONE/DILAUDID 2 MG/ML INJ ONE (01:07)
[2018-06-01] MEDS ORDERED: HYDROCODONE/APAP 5/325 TAB PO PRN (01:25)
[2018-06-01] MEDS ORDERED: fentaNYL 100 MCG/2 ML INJ IVP PRN (01:25)
[2018-06-01] MEDS ORDERED: LR 500 ML IV PRN (01:25)
[2018-06-01] MEDS ORDERED: HYDROmorphONE/DILAUDID 1 MG/ML INJ IVP PRN (01:25)
[2018-06-01] MEDS ORDERED: ONDANSETRON 4 MG/2 ML VIAL IVP PRN ×2 (01:25→07:22)
[2018-06-01] MEDS ORDERED: NALOXONE HCL 0.4 MG/ML INJ IVP PRN (01:25)
[2018-06-01] MEDS ORDERED: IBUPROFEN 600 MG TAB PO PRN (01:30)
[2018-06-01] MEDS ORDERED: oxyCODONE IR 5 MG TAB PO PRN (01:31)
[2018-06-01] MEDS ORDERED: ACETAMINOPHEN 325 MG TAB PO PRN (01:31)
[2018-06-01] MEDS ORDERED: TEMAZEPAM 15 MG CAP PO PRN (01:31)
--- NOTE | 2018-06-01 01:39 | POSTOPPROG ---
Post Op Note Date of Operation: 06/01/18 Surgeon: Gina Rutledge Anesthesiologist: katie Anesthesia: GET(General Endotracheal) Pre-op Diagnosis: pneumoperitoneum Post-op Diagnosis: perforated diverticulitis Indication: 72 yo with lung cancer, abdominal pain and perforated diverticulitis Procedure: lap LAR with splenic flexure take down and diverting loop ileostomy, lap ap Findings: small bowel adhered in pelvis, thickened inflamed colon, inflamed appendix Inf/Abcess present in the surg proc area at time of surgery?: Yes Depth: Organ Space EBL: 100-500 Drains: Gabriel Uagust Specimen(s): sigmoid colon , appendix
--- NOTE | 2018-06-01 02:13 | POSTANESTH ---
Post Anesthetic Evaluation Cardiovascular Status: Similar to Pre-Op Cond Respiratory Status: Similar to Pre-op Cond. Level of Consciousness/Mental Status: Mildly Sleepy, Arousable Pain Control: Adequate, Prn Tx Ordered Nausea/Vomiting Control: Adequate, Prn Tx Ordered Complications Possibly Related to Anesthesia: None Noted
[2018-06-01] MEDS: PIPERACILLIN/TAZO 3.375 GM/DEX 50 ML IV SCH ×3 (06:07→17:37)
[2018-06-01 06:43] LABS: PLATELET COUNT 128 10^3/uL (150-400)
--- NOTE | 2018-06-01 07:11 | GHP ---
[f rep st] HISTORY AND PHYSICAL DATE OF ADMISSION: 05/31/2018 CHIEF COMPLAINT: Pneumoperitoneum. HISTORY OF PRESENT ILLNESS: The patient is a 72-year-old woman who was diagnosed with small cell car cinoma of the lung. She was scheduled to begin chemotherapy. She is residing at [facility] and has been complaining of abdominal pain for 3 days. She describes it in the lower region. It is worse in the suprapubic area. She reports that she had an x-ray done, but because her abdominal pain increas ed, she was brought to the ER by ambulance. She has had 1 episode of vomiting. She denies any mauro es in her bowel habits. She is complaining of increased shortness of breath. Her oxygen requirements have been increasing. PAST MEDICAL HISTORY: Small cell lung cancer, tobacco abuse, depression. PAST SURGICAL HISTORY: Wrist surgery, left humerus surgery, right hip surgery. FAMILY HISTORY: Significant for lung cancer in her father. There is also a family history diabetes. SOCIAL HISTORY: She is currently not using tobacco products. She has been sober with alcohol since 2001. She lives in [facility]. REVIEW OF SYSTEMS: Significant for edema, shortness of breath, weakness, easy bruising. Otherwise, 10-point review of systems negative. PHYSICAL EXAM: VITAL SIGNS: Reviewed. She requires 4-5 L of oxygen for her saturations to be above 90%. GENERAL: Pleasant thin woman sitting up on gurney. HEENT: Normocephalic. Bruise over left eyelid. Pupils equal and round. No otorrhea. No rhinorrhea. Mucous membranes dry. LUNGS: Decrea sed at bases, right worse than left. No accessory muscles used. CARDIAC: Regular rate. She has ed saturnino of her upper extremities. She does not have edema of her lower extremities. ABDOMEN: She is di stended. She is exquisitely tender to the touch. Bowel sounds hypoactive. SKIN: Multiple areas of small ecchymosis. NEURO: Grossly intact. Psych: Mood and affect normal. RESULTS REVIEWED: I personally reviewed the results of her CT scan. She has a pleural effusion on t he right lower lung. She has lymphadenopathy along the right paramediastinal space. She has pneumop eritoneum and multiple diverticula. Pericardial effusion is stable. IMPRESSION AND PLAN: The patient is a 72-year-old woman with pneumoperitoneum and peritoneal signs. I will take her to the operating room for a laparoscopic, possible open bowel resection. I explaine d that if her colon was the likely source due to her needing chemotherapy, I would likely divert her. She has a small torso with multiple creases and I examined her abdomen lying down and sitting up. I believe ostomy placement in the left lower quadrant would be best. The risks and benefits includin g, but not limited to, stroke, heart attack, , blood clots, infection, bleeding, damage to surro unding structures such as the ureter, bladder, other bowel were discussed. She had her questions ans wered to her satisfaction and signed the informed consent. /[id number]/[id number]
--- NOTE | 2018-06-01 07:21 | GOP ---
[f rep st] OPERATIVE REPORT DATE OF OPERATION: 05/31/2018 SURGEON: Gina Rutledge MD ANESTHESIA: General. ANESTHESIOLOGIST: Jefferson Barakat MD. PREOPERATIVE DIAGNOSIS: Pneumoperitoneum. POSTOPERATIVE DIAGNOSIS: Perforated diverticulitis and appendicitis. PROCEDURE PERFORMED: Laparoscopic low anterior resection with splenic flexure takedown, laparoscopic appendectomy. FINDINGS: She had multiple loops of small bowel adhered deep in her pelvis. The area of the inflame d sigmoid colon was deep in her pelvis beyond the peritoneal reflection. Her appendix was also infla med due to being near the sites of inflammation. A small amount of free peritoneal fluid. Enlarged l iver. SPECIMENS: Peritoneal fluid for culture, appendix, sigmoid colon. ESTIMATED BLOOD LOSS: 350 cc. INDICATIONS: The patient is a 72-year-old woman with lung cancer, who developed severe abdominal fuad n. CT scan was performed which showed pneumoperitoneum. DESCRIPTION OF PROCEDURE: The patient was brought into the operating room, placed supine on the tabl e and general anesthesia was administered. She was placed in a lithotomy position. Her abdomen and perineum were prepped and draped in the usual sterile fashion. I infiltrated all sites with 0.5% Mar michell prior to making incisions. I elevated her umbilicus. I inserted the Veress needle. It passed the hanging drop test. Her abdomen insufflated easily to a pressure of 15 mmHg. I placed a 5 mm tr ocar with a camera at this site. I explored her abdomen. She had multiple loops of small bowel adhe red deep into her pelvis. I placed a 5 mm suprapubic trocar and a 5 mm trocar in the left lower quad rant. I gently freed the loops of bowel from deep in her pelvis. There was some oozing from the mes entery. Her appendix was also in this area and inflamed. I divided the mesoappendix with the Mcfadden ic Scalpel. I divided the base of the appendix with an Endo-EDEL 45. I had upsized the trocar in the left lower quadrant to accommodate the stapler. I removed the appendix. Next, there was a small am ount of purulent fluid in the pelvis. I continued my dissection and I could see a large piece of sig moid colon looped inside the pelvis. I placed an additional trocar in the right lower quadrant. I shira hen could begin a medial to lateral approach. I identified the left ureter and protected it from sarah m. I had to perform quite a bit of dissection below the peritoneal reflection in order to free the s pecimen from the pelvis. Once this was free, I selected a point of transection along the rectum. I used a EDEL 45 blue load to transect the colon beyond where the tenia splayed. I examined her colon a nd there was clearly not enough reach and so I performed splenic flexure takedown. The colon then co uld reach easily into her pelvis. I enlarged the incision in the left lower quadrant and placed an e xtra-small Isaac wound protector. I extracted the specimen and selected a point of transection prox imally where mesentery was healthy and there was nice pink bowel. I cut the bowel sharply and there was good blood supply. I passed the specimen off the field. I used a 2-0 Prolene to perform a purse string. I then inserted an EEA anvil and tied this into place. The bowel was quite small and had to be stretched to accommodate the anvil. This was tied and returned into the abdominal cavity. I the n placed an EEA sizer up through the rectum and then the stapler deploying the spike. I connected th e anvil to the spike and there was no tension or torsion of the bowel. I closed the stapler to perfo rm a circular anastomosis. I removed the stapler. There were no leaks noted with air insufflation t est. I placed a piece of EpiFix 2 x 12 cm around the anastomosis [id number], with expiration 01/27/2023. Next, I selected a piece of bowel for the diverting ostomy. I placed a silicone drain d eep in the pelvis, sutured this into place with 3-0 nylon. I then performed clean closure. I closed the 2 trocar sites with 4-0 Monocryl. I applied Dermabond. Next, I matured the loop ileostomy. I sutured it to fascia with 3-0 Vicryl. I brooked it and then completed maturing it with 3-0 Vicryl. Appliance was placed. She was taken out of the lithotomy position, awakened in the operating room, e xtubated, transferred to PACU in stable condition. SURGEON: Gina Rutledge MD /[id number]/MODL
[2018-06-01] MEDS ORDERED: ONDANSETRON DISINTEGRATING 4 MG TAB PO PRN (07:22)
[2018-06-01] MEDS ORDERED: PROMETHAZINE HCL 25 MG/ML INJ IVP PRN (07:22)
[2018-06-01] MEDS: FLUTICASONE/SALMETER 100/50MCG DISKUS IH SCH ×2 (09:04→22:45)
[2018-06-01] MEDS: NICOTINE 14 MG/24 HR PATCH TD SCH (09:25)
[2018-06-01] MEDS: METOPROLOL SUCCINATE XR 25 MG TAB PO SCH (09:25)
[2018-06-01] MEDS: SERTRALINE HCL 100 MG TAB PO SCH (09:25)
--- NOTE | 2018-06-01 10:33 | WOCRNPDOC ---
WOCRN Advanced Assessment Note - Ileostomy Assessment, Advanced Left Abdomen Ileostomy Ileostomy Appliance Intact: Yes Ileostomy Appliance Currently in Use: Two Piece Flat, 2 1/, Cut to Fit Stoma Shape: Round Stoma Height: Protruding Slightly Ileostomy Effluent: None Ileostomy Details: Loop Ileostomy Comment/Treatment Details: Day one teaching dropped off but due to patient's significant discomfort nothing was reviewed. Wound/pigskin trimmer will round again on Wednesday. Requested patient open and review teaching if she can before our next meeting on wednesday.
--- NOTE | 2018-06-01 13:15 | ASMTCMCOM ---
CM Note CM Note Notes: Chart reviewed. Patient admitted via ED with pneumoperitoneum Taken to or for laprascopic bowel resection nd appendectomy. Needs TBD. CM to follow. Plan: TBD Date Signed: 06/01/2018 01:14 PM Electronically Signed By:Sobeida Odonnell RN
--- NOTE | 2018-06-01 14:49 | GCON ---
[f rep st] CONSULTATION DATE OF CONSULTATION: 06/01/2018 REFERRING PHYSICIAN: Gina Rutledge MD REASON FOR CONSULTATION: Medical opinion regarding perioperative management of multiple medical issu es. HISTORY: Aline Gillespie is a 72-year-old female who was recently diagnosed with lung cancer and was just a bout to start chemotherapy with Dr. Champagne. She presents to the hospital with 3 days of severe low er abdominal pain, suprapubic and left lower quadrant. She has had nausea and vomiting for 1 day. S he has had increased shortness of breath, although she feels better than admission, since she feels t hat she has been able to mobilize some secretions. She denies any chest pain. She has anticipated p ostoperative pain in her lower pelvic region. PAST MEDICAL HISTORY: 1. Small cell lung cancer with malignant right pleural and pericardial effusion. 2. COPD 2 L. 3. Chronic systolic congestive heart failure. Ejection fraction 43%. MEDICATIONS: Please see computer record for full detailed list. ALLERGIES: No known drug allergies. SOCIAL HISTORY: Quit smoking 1 month ago. Previous heavy alcohol use, but sober since 2001. She logan es independently, but since her last hospitalization has been at [facility] nursing home. REVIEW OF SYSTEMS: Complete review of systems obtained. Review of systems negative regarding consti tutional, HEENT, GI, pulmonary, vascular, , hematology, muscular, endocrine, psych, except for posi tives as in HPI. FAMILY HISTORY: Positive for lung cancer in her father. PHYSICAL EXAMINATION: GENERAL: Well-developed, well-nourished female, in no acute distress. VITAL SIGNS: Temperature is 36.6, pulse 107, blood pressure 118/72, saturating 95% on 10 L. EYES: Normal conjunctivae. Pupils react to light. ENT: Normal ears, nose. Hearing intact. Normal teeth. Esperanza pharynx moist. NECK: Trachea midline. No thyromegaly. CHEST: Normal effort. LUNGS: Bilateral r honchi and occasional wheeze. Moderately increased respiratory effort. CARDIOVASCULAR: Tachycardic , no murmur, no extremity edema. ABDOMEN: Soft, post surgical. No hepatosplenomegaly. SKIN: Warm , dry, intact. No rash. MUSCULOSKELETAL: No cyanosis or clubbing. Strength 5/5 upper and lower ex tremities. NEURO: Cranial nerves intact, normal sensation to light touch. PSYCH: Alert and orient ed x3. Normal affect. Normal judgment. Normal memory. LABORATORY DATA: White count 4.84, hematocrit 28.7, platelets 128. Sodium 143, potassium 4.7, chlor agustin 116, bicarb 24, BUN 28, creatinine 0.6, glucose 117. Urinalysis is negative. CT scan of the abd omen and pelvis shows moderate pleural and stable pericardial effusions. This case was discussed wit h Dr. Gina Rutledge regarding General surgery. ASSESSMENT/PLAN: 1. Perforated diverticulum and appendicitis, status post low anterior resection and ostomy placement . Agree with IV Zosyn. 2. Acute respiratory failure. Her oxygen needs have gone up since surgery. I will recheck a chest x-ray. Will start her on some nebulizers. 3. Small cell lung cancer. Oncology may need to see her during this hospitalization. 4. Pleural and pericardial effusions. These are presumed to be malignant. They are stable by marj grissom, but will be monitored closely. 5. Chronic obstructive pulmonary disease, 2 L baseline. We will start scheduled nebulizers. 6. Chronic systolic congestive heart failure. Ejection fraction 43%. We will watch her volume stat us very closely. Thank you very much for this consultation. Hospitalist Medicine will continue to follow. /[id number]/MODL
[2018-06-01] MEDS: IPRATROPIUM/ALBUTEROL 3 ML DEYVIAL IH SCH ×2 (15:14→20:33)
[2018-06-01] MEDS: NS 1,000 ML IV SCH ×2 (16:25→22:11)
--- NOTE | 2018-06-01 17:32 | SOAPPROG ---
SOAP Progress Note Assessment/Plan: Assessment: POD # 0 s/p Lap low anterior resection, appendectomy, and diverting loop ostomy for perforated diverticulum Pleural effusion - likely malignant Small cell lung cancer - was scheduled to start chemo soon but will need to be delayed Neuro - Morphine, tylenol, ibuprofen, oxycodone prn Resp - Increasing O2 requirements, may need thoracentesis (will recur but may provide short term relief) Cards - Monitor for hemodynamic instability, currently holding losartan and amlodipine. Continuing home metoprolol. As BP improves, can add back home meds GI - Awaiting bowel function to return. Wound/ostomy consult for ileostomy teaching FEN - Expect ileus. Continue NS for now. Heme/ID - Awaiting culture results. Covering with Zosyn for now Proph - Can start Lovenox after thoracentesis Dispo - Continue inpatient. S: Nausea improved after Zodran O: Sitting up in bed, awake and alert Decreased breath sounds bilaterally Tachycardic Bowel sounds hypoactive. INcisions cdi. DANA drain with serosanguinous fluid. Ostomy pink Still edematous/arms more than legs Plan: 06/01/18 17:24 06/01/18 17:33 Objective: Vital Signs Temp Pulse Resp BP Pulse Ox 36.6 C 112 H 20 116/74 94 06/01/18 16:00 06/01/18 16:00 06/01/18 16:00 06/01/18 16:00 06/01/18 16:00 Microbiology 05/31/18 22:48 Gram Stain - Final Peritoneal Fluid - Aspirate Laboratory Results 06/01/18 06:34 06/01/18 06:34 05/31/18 06/01/18 06/02/18 05:59 05:59 05:59 Intake Total 8800 1050 Output Total 625 50 Balance 8175 1000 ICD10 Worksheet Patient Problems: Problems Problem Status Onset Pneumoperitoneum Acute Chronic Disease mgmt/Transitional care Acute Gait abnormality Acute Hyponatremia Acute Hypoxemia Acute
[2018-06-01] MEDS ORDERED: HEPARIN 10,000 UNIT/10 ML MDV (1,000 UNIT/ML) IVP PRN (21:09)
[2018-06-01 22:01] LABS: PLATELET COUNT 129 10^3/uL (150-400)
[2018-06-01 22:13] LABS: INR 1.3 (0.83-1.16); PROTIME(PATIENT) 16.4 SEC (12.0-15.0)
[2018-06-01] MEDS: HEPARIN/DEXTROSE 500 ML IV SCH (22:33)
[2018-06-02] MEDS: PIPERACILLIN/TAZO 3.375 GM/DEX 50 ML IV SCH ×4 (00:29→18:33)
[2018-06-02] MEDS: IPRATROPIUM/ALBUTEROL 3 ML DEYVIAL IH SCH ×2 (05:29→11:20)
[2018-06-02] MEDS: FLUTICASONE/SALMETER 100/50MCG DISKUS IH SCH ×2 (05:32→19:34)
--- NOTE | 2018-06-02 08:23 | SOAPPROG ---
SOAP Progress Note Assessment/Plan: Assessment: POD # 1 s/p Lap low anterior resection, appendectomy, and diverting loop ostomy for perforated diverticulum Pleural effusion - likely malignant Small cell lung cancer - was scheduled to start 06/02/2018 but will need to be delayed Deep Vein Thrombosis present prior to admission RIJ, LIJ, Left axillary vein, Left subclavian vein Neuro - Morphine, tylenol, ibuprofen, oxycodone prn Resp - Increasing O2 requirements, I think would benefit from thoracentesis ( will need to time with Heparin drip) Cards - Monitor for hemodynamic instability, currently holding losartan and amlodipine. Continuing home metoprolol. As BP improves, can add back home meds GI - Awaiting bowel function to return. Wound/ostomy consult for ileostomy teaching FEN - Expect ileus. Consider TPN due to decreased po intake for 3 days prior to admission and I do not expect bowel function to return for 3-5 days. Heme/ID - EColi so far on cultures. Covering with Zosyn for now. Extensive upper DVTs on Heparin drip. Monitor H/H. May need transfusion Proph - Will start Pepcid BID due to being NPO and has several risk factors for stress ulcer Dispo - Transfer to SDU. Continue inpatient S: No changes. No complaints O: Sitting up in bed, awake and alert Decreased breath sounds bilaterally Tachycardic Bowel sounds hypoactive. Incisions cdi. DANA drain with serosanguinous fluid. Ostomy pink no gas or stool in bag Still edematous/arms more than legs Plan: 06/01/18 17:24 06/01/18 17:33 06/02/18 08:23 06/02/18 08:24 06/02/18 08:26 06/02/18 08:27 Objective: Vital Signs Temp Pulse Resp BP Pulse Ox 37.2 C 95 18 125/44 H 94 06/02/18 04:00 06/02/18 05:33 06/02/18 05:33 06/02/18 04:00 06/02/18 05:33 Microbiology 05/31/18 22:48 Gram Stain - Final Peritoneal Fluid - Aspirate Laboratory Results 06/01/18 21:45 06/01/18 06:34 06/01/18 06/02/18 06/03/18 05:59 05:59 05:59 Intake Total 8800 2560 Output Total 625 722.5 Balance 8175 1837.5 PT 16.4 SEC (12.0-15.0) H 06/01/18 21:45 INR 1.30 (0.83-1.16) H 06/01/18 21:45 ICD10 Worksheet Patient Problems: Problems Problem Status Onset Pneumoperitoneum Acute Chronic Disease mgmt/Transitional care Acute Gait abnormality Acute Hyponatremia Acute Hypoxemia Acute
[2018-06-02] MEDS: METOPROLOL SUCCINATE XR 25 MG TAB PO SCH (08:32)
[2018-06-02] MEDS: NICOTINE 14 MG/24 HR PATCH TD SCH (08:32)
[2018-06-02] MEDS: SERTRALINE HCL 100 MG TAB PO SCH (08:33)
--- NOTE | 2018-06-02 08:58 | CPEKG ---
Heart Rate: 104 RR Interval: 577 P-R Interval: 128 QRSD Interval: 78 QT Interval: 324 QTC Interval: 427 P Redwood: 60 QRS Redwood: -2 T Wave Redwood: -35 EKG Severity - BORDERLINE ECG - EKG Impression: SINUS TACHYCARDIA EKG Impression: BORDERLINE T ABNORMALITIES, INFERIOR LEADS Electronically Signed By: Isaac Lama 09-Jun-2018 16:38:10
[2018-06-02] MEDS ORDERED: ENOXAPARIN 40 MG/0.4 ML SYR SC SCH (09:00)
[2018-06-02] MEDS ORDERED: D10W 1,000 ML IV PRN (10:24)
--- NOTE | 2018-06-02 10:54 | ECHO ---
[email or web address] [address] [address] [address]: [phone] Fax: Transthoracic Echocardiogram Name: ISIDRA TANNER MR#: [id number] Study Date: 06/02/2018 Study Time: 08:03 AM Date of : 1945 Age: 72 year(s) Height: ( ) Weight: ( ) BSA: Gender: Female Examination: Limited Echo Indication: F/U Pericardial Effusion Image Quality: Contrast: Requested by: Sue Sterling BP: 125 mmHg/84 mmHg Heart Rate: Rhythm: Indication: F/U Pericardial Effusion Procedure Staff [employer]: Khris Song RDCS Reading Physician: Tyler Echeverria MD Requesting Provider: Conclusions: Normal global systolic LV function. There is a small to moderate circumferencial pericardial effusion from 1.0cm to 1.5cm with known right atrial collapse. Compared to the previous exam of 05/23/18 there has been no significant change.. Measurements: Chambers Valvular Assessment AV/MV Valvular Assessment TV/PV Normal Normal Normal Name Value Range Name Value Range Name Value Range IVSd (2D): 0.7 cm (0.6 cm-1.1 cm) LVDd (2D): 3.7 cm (3.9 cm-5.3 cm) LVDs (2D): 2.3 cm (2.1 cm-4 cm) LVPWd (2D): 1.0 cm ( - ) Continued Measurements: Findings: Left Ventricle: Normal global systolic LV function. Exam Comments: There is a small to moderate circumferencial pericardial effusion from 1.0cm to 1.5cm with known right atrial collapse. Compared to the previous exam of 05/23/18 there has been no significant change.. Patient: ISIDRA TANNER Study Date: 06/02/2018 Page 1 of 2 08:03 AM (No Signature Object) Patient: ISIDRA TANNER Study Date: 06/02/2018 Page 2 of 2 08:03 AM [id number]
[2018-06-02 11:03] LABS: INR 1.41 (0.83-1.16); PROTIME(PATIENT) 17.4 SEC (12.0-15.0)
[2018-06-02 11:36] LABS: PLATELET COUNT 126 10^3/uL (150-400)
--- NOTE | 2018-06-02 12:00 | PDMN ---
Medical Necessity Medical necessity: Pt meets IP criteria per MD; est los >2 mn for eval/tx of perforated diverticulum & appendicitis, pleural & pericardial effusions & acute respiratory failure; requiring further workup/surgical intervention w/ostomy placement, IV abx, IVFs, Wound Care/Hospitalist/Oncology consults & respiratory supportive care; hx recent hospitalization for pneumonia & new lung cancer diagnosis, COPD, CHF; per H&P & order 05/31/18
[2018-06-02] MEDS ORDERED: PROTOCOL POTASSIUM 1 DOSE MISC PRN (14:04)
[2018-06-02] MEDS: POTASSIUM Cl (KCl) 50 ML IV SCH ×2 (14:26→16:09)
--- NOTE | 2018-06-02 14:59 | GCON ---
[f rep st] CONSULTATION ONCOLOGY INITIAL VISIT PRIMARY ONCOLOGIST: Joe Champagne MD REASON FOR VISIT: Evaluation and management of small cell lung cancer. HISTORY OF PRESENT ILLNESS: The patient is a 72-year-old woman with newly diagnosed extensive stage small cell lung cancer. This was officially diagnosed May 19. She has been having few weeks of n ausea, shortness of breath, loss of appetite, and 10 pound weight loss. When she presented to the [facility], she had a sodium of 130, and a CT of the chest revealed a 13.2 cm right hilar mass. There we re also satellite lesions in the lung and an MRI of her lower spine showed probable osseous metastasi s, but without cord compression. PET-CT scan showed extensive disease in the chest, but no discrete bone metastases. Brain MRI was negative for metastases. She underwent recent chemotherapy teaching and was to start carboplatin and etoposide today; however, she presented to the hospital late Wednesday night after being transferred here to the hospital by [facility] complaining of abdominal pain for 3 days. It was in the lower region, especially in the supr apubic area. She had an x-ray I think was nonspecific, but the CT scan, which was reviewed by Dr. Jose blandon revealed interval development of pneumoperitoneum thought to be secondary to localized bowel perf oration in the left lower quadrant of the abdomen near the junction of the distal jejunum, proximal i leum and adjacent to the sigmoid colon. There were numerous diverticula in that area. She was taken to the OR where she was found to have perforated diverticulitis and appendicitis. She underwent a l ow anterior resection with splenic flexure takedown and laparoscopic appendectomy. She is currently slowly recovering and her daughter is in the room with her. ALLERGIES: She has no known drug allergies. HOME MEDICATIONS: Include amlodipine, temazepam, sertraline, nicotine patch, metoprolol, losartan, i buprofen, and Advair. PAST MEDICAL HISTORY: Chronic illnesses: 1. Small cell lung cancer, extensive disease primarily in the lungs. 2. COPD. 3. Chronic systolic congestive heart failure. EF of 43%. 4. Diverticulosis with diverticulitis. PAST SURGICAL HISTORY: Includes the recent colon takedown and appendectomy. SOCIAL HISTORY: She just recently quit smoking. She was a heavy smoker in the past. She has not dr ank alcohol since 2001 and she lives at [facility]. FAMILY HISTORY: Significant for lung cancer in the father. REVIEW OF SYSTEMS: 10-point review of systems performed. She is a little more short of breath since the surgery. The rest of the review of systems is negative. PHYSICAL EXAMINATION: VITAL SIGNS: Temperature 35.9, pulse is 108, blood pressure 158/78, saturatin g 92% on 15 L face mask. GENERAL: She is a thin woman, a little mildly tachypneic, but in no distre ss. HEENT: Unremarkable. LUNGS: Bilateral rhonchi. CARDIAC: Tachycardic, regular, but distant h eart sounds. ABDOMEN: Soft. Really, no bowel sounds today. EXTREMITIES: Grossly intact. LABORATORY/IMAGING: She is anemic at 8.4. White count and platelet count are unremarkable. Sodium is actually normal, creatinine is 0.6. LFTs are unremarkable. LDH is up at 2270. Previous CTs and PET scan as per HPI. IMPRESSION: 1. Extensive small cell lung cancer. 2. Perforated diverticula, status post surgical resection. 3. Chronic obstructive pulmonary disease. 4. Congestive heart failure. Chemotherapy will be placed on hold until she completely recovers from the surgery, suspecting probab ly a couple of weeks. The high LDH is probably related to the malignancy and does not need any anyth ing specific related to that at this time. We will follow along distantly while she is in the hospit al, but there are no hematological or oncological intervention recommendations at this time. /[id number]/MODL
[2018-06-02] MEDS: LOSARTAN POTASSIUM 25 MG TAB PO SCH (15:18)
[2018-06-02] MEDS ORDERED: IPRATROPIUM/ALBUTEROL 3 ML DEYVIAL IH PRN (15:26)
--- NOTE | 2018-06-02 15:42 | HOSPPROG ---
Hospitalist Progress Note Assessment/Plan: * Perforated diverticulum + appendicitis s/p LAR with ostomy * Peritonitis -IV Zosyn * Acute on chronic respiratory failure -increased O2 - transferred to step down * Small cell lung cancer -d/w Dr Carmona - oncology to follow * Right pleural effusion s/p thoracentesis -presumed malignant - cytology pending * Pericardial effusion - presumed malignant -stable by ECHO * Severe protein calorie malnutrition -start TPN * COPD 2L baseline -nebs * Chronic systolic CHF - EF 43% -watch volume status * BUE DVT -IV heparin Subjective: No new complaints Objective: Vital Signs Temp Pulse Resp BP Pulse Ox 36.4 C 99 15 170/98 H 94 06/02/18 15:18 06/02/18 15:18 06/02/18 15:18 06/02/18 15:18 06/02/18 15:18 Microbiology 06/02/18 17:11 Gram Stain - Final Pleural Fluid - Aspirate 05/31/18 22:48 Gram Stain - Final Peritoneal Fluid - Aspirate Laboratory Results 06/02/18 11:05 06/02/18 11:05 06/01/18 06/02/18 06/03/18 05:59 05:59 05:59 Intake Total 8800 2560 Output Total 625 722.5 810 Balance 8175 1837.5 -810 PT 17.4 SEC (12.0-15.0) H 06/02/18 10:15 INR 1.41 (0.83-1.16) H 06/02/18 10:15 d/w Dr. Rutledge - transfer to SDU for high care needs and borderline resp status CXR viewed, my personal interpretation is- improved aeration s/p thoracentesis, no PTX - Physical Exam Constitutional: no apparent distress, appears nourished, not in pain Cardiovascular: regular rate and rhythym, no murmur, rub, or gallop Respiratory: no respiratory distress, no rales or rhonchi, clear to auscultation Gastrointestinal: normoactive bowel sounds, soft, non-tender abdomen, no palpable masses Skin: no rashes or abrasions, no fluctuance, no induration Neurologic: AAOx3, sensation intact bilaterally Psychiatric: interacting appropriately, not anxious, not encephalopathic, thought process linear ICD10 Worksheet Patient Problems: Problems Problem Status Onset Pneumoperitoneum Acute Chronic Disease mgmt/Transitional care Acute Gait abnormality Acute Hyponatremia Acute Hypoxemia Acute
[2018-06-02] MEDS ORDERED: 1/2 NS 1,000 ML IV SCH (15:45)
[2018-06-02] MEDS: TPN W/ FAMOTIDINE 1 EA BAG IV SCH (21:00)
[2018-06-03] MEDS: PIPERACILLIN/TAZO 3.375 GM/DEX 50 ML IV SCH ×2 (00:20→05:16)
[2018-06-03 05:29] LABS: PLATELET COUNT 126 10^3/uL (150-400)
[2018-06-03 05:40] LABS: INR 1.38 (0.83-1.16); PROTIME(PATIENT) 17.1 SEC (12.0-15.0)
[2018-06-03] MEDS ORDERED: FUROSEMIDE 20 MG/2 ML VIAL IVP ONE (05:49)
[2018-06-03] MEDS ORDERED: FUROSEMIDE 40 MG/4 ML VIAL IVP ONE (07:45)
[2018-06-03] MEDS ORDERED: ALBUMIN 5% 500 ML BOTTLE IV ONE (08:24)
[2018-06-03] MEDS ORDERED: D50W 25 GM/50 ML SYR IVP PRN (08:25)
[2018-06-03] MEDS ORDERED: DOPamine/DEXTROSE 400 MG/250 ML BAG IV ONE (08:28)
[2018-06-03] MEDS ORDERED: PROPOFOL/EMULSION 1,000 MG/100 ML BOTTLE IV ONE (08:38)
[2018-06-03] MEDS ORDERED: ETOMIDATE 40 MG/20 ML INJ ONE (08:52)
[2018-06-03] MEDS ORDERED: MIDAZOLAM 2 MG/2 ML VIAL ONE (08:52)
[2018-06-03] MEDS ORDERED: ROCURONIUM 100 MG/10 ML VIAL ONE (08:53)
[2018-06-03] MEDS ORDERED: FAMOTIDINE 20 MG/NACL 50 ML IV SCH (09:00)
[2018-06-03] MEDS ORDERED: MIDAZOLAM 2 MG/2 ML VIAL IVP ONE (09:00)
[2018-06-03] MEDS ORDERED: NOREPINEPHRINE BITARTRATE 16 MG in NS 250 ML IV SCH (09:00)
[2018-06-03] MEDS: PROPOFOL/EMULSION 100 ML IV SCH ×2 (09:10→15:39)
[2018-06-03] MEDS: FLUTICASONE/SALMETER 100/50MCG DISKUS IH SCH (09:40)
--- NOTE | 2018-06-03 10:33 | SOAPPROG ---
SOAP Progress Note Assessment/Plan: Assessment: POD # 2 s/p Lap low anterior resection, appendectomy, and diverting loop ostomy for perforated diverticulum Pleural effusion - likely malignant (thoracentesis on 06/02) Small cell lung cancer - was scheduled to start chemo 06/02/2018 but will need to be delayed Deep Vein Thrombosis present prior to admission RIJ, LIJ, Left axillary vein, Left subclavian vein - Was on Heparin drip. H/H dropped. Neuro - Fentayl Resp - Increased work of breathing and required intubation this am. Cards - Placed triple lumen groin catheter06/03. Monitor for hemodynamic instability - required pressors this am) Home meds held include losartan and amlodipine. and metoprolol. GI - Bowel function returned. Wound/ostomy consult for ileostomy teaching FEN - Surprised early return of bowel function. Can continue TPN and do trickle feeds. I would not get tube feeds up to goal quickly. Heme/ID - EColi and Pseudomonas so far on cultures. Covering with Zosyn for now. Appreciate Dr. Ruby seeing her. Extensive upper DVTs / Heparin drip held. Difficult situation. No obvious source of bleeding. H/H much lower and getting transfused. Proph - Will start Pepcid BID due to being NPO and has several risk factors for stress ulcer Dispo - Transfer to ICU. Continue inpatient. Appreciate pulm/cc and hospitalists S: Intubated this am O: Lying in bed sedated Tachycardic Incisions cdi. DANA drain with serosanguinous fluid. Ostomy pink with dark greenstool in bag Still edematous/arms more than legs Plan: 06/01/18 17:24 06/01/18 17:33 06/02/18 08:23 06/02/18 08:24 06/02/18 08:26 06/02/18 08:27 06/03/18 10:29 06/03/18 10:34 Objective: Vital Signs Temp Pulse Resp BP Pulse Ox 36.4 C 65 14 87/57 L 89 L 06/03/18 07:05 06/03/18 08:30 06/03/18 08:30 06/03/18 08:30 06/03/18 07:05 Microbiology 06/02/18 17:11 Gram Stain - Final Pleural Fluid - Aspirate 05/31/18 22:48 Gram Stain - Final Peritoneal Fluid - Aspirate Laboratory Results 06/03/18 04:50 06/03/18 04:50 06/02/18 06/03/18 06/04/18 05:59 05:59 05:59 Intake Total 2560 2660 Output Total 722.5 1516 Balance 1837.5 1144 PT 17.1 SEC (12.0-15.0) H 06/03/18 04:50 INR 1.38 (0.83-1.16) H 06/03/18 04:50 ICD10 Worksheet Patient Problems: Problems Problem Status Onset Pneumoperitoneum Acute Chronic Disease [facility]/Transitional care Acute Gait abnormality Acute Hyponatremia Acute Hypoxemia Acute
--- NOTE | 2018-06-03 10:45 | GOP ---
[f rep st] OPERATIVE REPORT DATE OF OPERATION: 06/03/2018 SURGEON: Gina Rutledge MD ANESTHESIA: None. PREOPERATIVE DIAGNOSIS: Hemodynamic instability. POSTOPERATIVE DIAGNOSIS: Hemodynamic instability. PROCEDURE PERFORMED: Right triple-lumen catheter placement. FINDINGS: No unusual SPECIMENS: None. ESTIMATED BLOOD LOSS: 10 cc. INDICATIONS: The patient is a 72-year-old woman with lung cancer who then had a perforated diverticulum. I took her to the operating room for a laparoscopic low anterior resection with a diverting ostomy. She was transferred to the step -down unit yesterday. She has been on a heparin drip due to DVTs. Her hemoglobin dropped this morning. Her oxygenation dropped and she had increased work of breathing. She was intubated. Her blood pressure was extremely low. She does not have adequate IV access. Triple-lumen catheter was indicated. DESCRIPTION OF PROCEDURE: Patient was in the ICU. Her right groin was prepped and draped. I felt for the femoral artery. I accessed the femoral vein on the first attempt with dark return of blood flow. I threaded the guidewire and removed the needle. I put a staci in the skin. Using the Seldinger technique I placed a dilator over the wire. I removed the dilator. I placed the catheter, which I had flushed with saline, over the wire and removed the wire. Each port withdrew blood easily and was flushed with saline. It was sutured into place. A Biopatch placed and a Tegaderm applied. She tolerated the procedure well. /[id number]/MODL MTDD
--- NOTE | 2018-06-03 11:16 | ASMTCMCOM ---
CM Note CM Note Notes: Patient was intubated this AM due to increased work of breathing. She is POD #2 lap low anterior resection, appendectomy, and diverting loop ostomy for perforated diverticulum. She was to start chemo yesterday for small cell lung cancer, but this has obviously been delayed. Patient is currently open to [facility] home care but her discharge needs will likely be increased after this hospitalization. We will follow and appreciate PT/OT involvement. Date Signed: 06/03/2018 11:15 AM Electronically Signed By:Mayda Chavez RN
--- NOTE | 2018-06-03 12:10 | GCON ---
[f rep st] CONSULTATION INFECTIOUS DISEASE CONSULTATION DATE OF CONSULTATION: 06/03/2018 REASON FOR CONSULTATION: Antibiotic management for peritonitis following perforated diverticulitis. HISTORY OF PRESENT ILLNESS: This is a 72-year-old woman with recent diagnosis of metastatic small-cell lung cancer 05/19/2018 (no chemo yet), who re- presented on 05/31/2018 with several days of abdominal pain. CT showed perforated diverticula. The patient was taken to the OR immediately on the , where she underwent laparoscopic washout with diverting loop ileostomy and a laparoscopic appendectomy. Per report, peritonitis was mostly contained to the lower pelvis, and cultures from this have grown E coli and Pseudomonas. Patient was empirically started on Zosyn 3.375 g IV q.6 and has been on that agent since that time. This morning patient became hemodynamically unstable, requiring intubation, pressors and additional IV access. ID was consulted for ongoing antibiotic management. History was obtained from review of medical records, coordination of care with other physicians as patient was intubated & sedated at the time of my exam. PAST MEDICAL HISTORY: 1. Small-cell lung cancer as per HPI. 2. COPD with a history of longstanding tobacco use. 3. Chronic systolic congestive heart failure. 4. Diverticulosis. PAST SURGICAL HISTORY: As per HPI. ALLERGIES: NKDA. MEDICATIONS: Include: Tylenol, Peridex, Zantac 50 mg IV q.12, heparin subcu, insulin protocol, metoprolol 25 mg daily, morphine as needed, norepinephrine, Zosyn 3.375 g IV q.6 started 06/01/2018, Phenergan, propofol, Advair, Zoloft and TPN. SOCIAL HISTORY: Patient living at [facility]. Recently quit smoking. No alcohol since 2001. FAMILY HISTORY: Positive for lung cancer in the father. REVIEW OF SYSTEMS: Records were reviewed and documented. Easy bruising, weakness, shortness of breath and upper extremity edema. PHYSICAL EXAMINATION: VITAL SIGNS: HR is 144, blood pressure 87/57, respiratory rate 21, saturation 90% on 100% on the ventilator. Temperature of 36.4. She has been afebrile throughout her hospital course. GENERAL: This is a sedated, somewhat cachectic woman lying in bed. HEENT: She has no dentition. Dry mucous membranes. ET tube is in place. She has pale conjunctivae with some injection of her left with ecchymosis of her eyelid. NECK: Supple. CARDIOVASCULAR: Tachycardic. CHEST: Coarse breath sounds bilaterally. ABDOMEN: Soft. Small surgical incisions, without abnormalities. Ostomy left side with black stool. : Eckert in place. LINES: Patient has a right femoral triple-lumen, a right upper extremity PICC line. EXTREMITIES: No lower extremity edema, but bilateral upper extremity edema with a peau d' orange appearance. Pulses were present in the bilateral radial artery distribution. SKIN: Patient had some scattered ecchymosis. No rash. She had pallor. NEUROLOGIC: She was spontaneously moving all 4 extremities. LABORATORY: White count is 10.7, hematocrit 21, platelets of 126, 57% neutrophils, 11% bands, 14% lymphocytes, as well as some other early forms. Creatinine 0.6, AST 40, ALT 34, alk phos 85, sodium 146. Echocardiogram from 06/01/2018, showed an ejection fraction that was globally normal with a small pericardial effusion 1 to 1.5 with known right atrial collapse without significant change from 05/23/2018. Chest x-ray shows right pleural effusion, ET tube, infiltrate in the right base as well and mediastinal and hilar lymphadenopathy. CT previously last month showed severely constricted vena cava, moderate emphysema, right upper lobe consolidation and bilateral hilar lymphadenopathy. ASSESSMENT AND PLAN: This is a 72-year-old woman with recent diagnosis of metastatic small-cell lung cancer who presented with abdominal pain, found to have perforated diverticula and peritonitis that is polymicrobial, as expected, with cultures showing a predominance of E coli and Pseudomonas. Susceptibilities of Pseudomonas are still pending, but E coli is vásquez susceptible. Interestingly, patient with signs of sepsis this AM with respiratory failure and hypotension this morning requiring intubation and pressors, specific etiology likely multifactorial related to her underlying lung cancer, possible underlying bleed, cardiac issues and peritonitis. 1. Sepsis with Perforated diverticula with contained peritonitis to pelvis status post washout with culture showing Pseudomonas and E coli. Patient's creatinine clearance is approximately 50. Would increase Zosyn to 4.5 g IV q.6 for pseudomonal coverage. With recent decompensation, would obtain blood cultures. 2. Right pleural effusion. This was tapped yesterday, which showed a pH 7.5, 785 WBCs, 17% lymphocytes, 17% neutrophils, 10% lymphocytes, 63% other cells with an LDH of 1280. This is not consistent with an infection, but more likely due to her underlying malignancy. 3. Marked bilateral upper extremity edema, likely related to constrictive vena cava. Thank you for this consultation. Will continue to need to see on a daily basis. /[id number]/MODL MTDD
[2018-06-03] MEDS: METOPROLOL SUCCINATE XR 25 MG TAB PO SCH (13:15)
[2018-06-03] MEDS: LOSARTAN POTASSIUM 25 MG TAB PO SCH (13:15)
[2018-06-03] MEDS: SERTRALINE HCL 100 MG TAB PO SCH (13:16)
--- NOTE | 2018-06-03 13:35 | ASMTCMCOM ---
CM Note CM Note Notes: Patient's daughter/JEANNETTE Cuadra asked for assistance regarding becoming patient's financial POA. I consulted with Emilia Dela Cruz from legal who says that, without patient's signature on a POA form, Venecia must go through the courts to request emergency conservatorship. Venecia is concerned because patient has bills due, does not have a will, etc. I relayed this information and offered to help in any other way that we are able. Date Signed: 06/03/2018 01:34 PM Electronically Signed By:Mayda Chavez RN
[2018-06-03] MEDS: PIPERACILLIN/TAZO 4.5 GM/DEX 100 ML IV SCH ×3 (13:46→23:50)
[2018-06-03] MEDS: INSULIN REGULAR, HUMAN 100 UNIT/1 ML VIAL STANDARD SC SCH ×3 (13:46→21:41)
[2018-06-03] MEDS: NICOTINE 14 MG/24 HR PATCH TD SCH (13:46)
--- NOTE | 2018-06-03 14:06 | SOAPPROG ---
SOAP Progress Note Assessment/Plan: E&M SCLC * Extensive SCLC: right pleural effusion cytology pending. chemo (carbo/ etoposide) was supposed to start this week but on hold with recent surgery * Acute on chronic respiratory failure; COPD: intubated this morning. Managed by surgery and critical care * Perforated diverticulum, Peritonitis, appendicitis: s/p LAR with colostomy; on IV Zosyn * Severe protein calorie malnutrition: agree with supplemental nutrition * Systolic CHF: EF 43% Subjective: She is intubated and sedated. Daughter with patient. Objective: Vital Signs Temp Pulse Resp BP Pulse Ox 36.4 C 141 H 23 H 87/57 L 100 06/03/18 07:05 06/03/18 12:00 06/03/18 12:00 06/03/18 08:30 06/03/18 12:00 Microbiology 05/31/18 22:48 Gram Stain - Final Peritoneal Fluid - Aspirate 06/02/18 17:11 Gram Stain - Final Pleural Fluid - Aspirate Laboratory Results 06/03/18 04:50 06/03/18 04:50 06/02/18 06/03/18 06/04/18 05:59 05:59 05:59 Intake Total 2560 2660 Output Total 722.5 1516 Balance 1837.5 1144 PT 17.1 SEC (12.0-15.0) H 06/03/18 04:50 INR 1.38 (0.83-1.16) H 06/03/18 04:50 Physical Exam - Physical Exam General Appearance: other (intubated, sedated) Respiratory: rhonchi Cardiac/Chest: edema (upper ext), tachycardia Abdomen: other (colostomy with small amt stool), No normal bowel sounds ( decreased) ICD10 Worksheet Patient Problems: Problems Problem Status Onset Pneumoperitoneum Acute Chronic Disease mgmt/Transitional care Acute Gait abnormality Acute Hyponatremia Acute Hypoxemia Acute
[2018-06-03] MEDS: POTASSIUM Cl (KCl) 10 MEQ in D5W 50 ML IV SCH (14:45)
[2018-06-03] MEDS: POTASSIUM Cl (KCl) 50 ML IV SCH ×4 (14:48→14:59)
--- NOTE | 2018-06-03 16:16 | GPN ---
[f rep st] PROCEDURE NOTE DATE OF PROCEDURE: 06/03/2018 PROCEDURE: Emergent intubation. INDICATION: Acute respiratory failure. CONSENT: Waived due to the emergent nature of the procedure. ANESTHESIA: Conscious sedation was achieved using a total of 1 mg IV Versed and 20 mg of IV etomidat e. PROCEDURE IN DETAIL: A 7.5 endotracheal tube was easily passed on the first attempt with excellent v isualization of her vocal cords. There were equal breath sounds without extra breath sounds in the m idepigastric region. Her oxygen saturation remained above 90% the entire time. There was appropriat e color change on capnography, as well as tube condensation. A postprocedure chest x-ray showed the tube to be in excellent position. COMPLICATIONS: Shortly after intubation, the patient's blood pressure dropped quite low into the 30s and 40s systolic. She was given albumin, as well as 1 dose of epinephrine, when her heart rate star phuong to drop into the 60s and 70s. Careful monitoring of a pulse was done several times during this p eriod, and the pulse was never lost. Therefore, CPR was never started. She was given 1 mg of epinep hrine, which resulted in a heart rate of about 160 with a very regular-appearing rhythm and very narr ow complex tachycardia. Her blood pressure was also briefly at about 210 systolic. This subsequentl y resolved within about 3 minutes and to numbers in the more normal range. She was also started on a propofol drip during this time. There were no other arrhythmias noted, and she had a sinus tachycar maulik once that recovered. This was discussed with her daughter in some detail after the event. /[id number]/MODL
--- NOTE | 2018-06-03 17:06 | GCON ---
[f rep ] CONSULTATION CRITICAL CARE CONSULTATION DATE OF CONSULTATION: 06/03/2018 HISTORY OF PRESENT ILLNESS: This patient is a 72-year-old female who has had a recent diagnosis of m etastatic small cell lung cancer. She has not yet received chemotherapy but was scheduled to do so i n the very near future. She was admitted on the complaining of abdominal pain, nausea, vomiting, and shortness of breath. A CT scan showed a pleural effusion, as well as free air in the abdomen. She had peritoneal signs on exam, was taken to the operating room where she was found to have a perfo rated diverticulum, as well as inflammation of her appendix, so she underwent an appendectomy, as wel l as partial colectomy with colostomy. She seemed to do fairly well on postop day #1 with no specifi c changes. On the , however, she had increasing shortness of breath and was transferred to the ep-down unit, where she was noted to have edema for deep vein thrombosis, which was apparently presen t prior to admission. In any case, she had increasing oxygen requirements, and I was called to the [facility] emergently this morning with increasing shortness of breath. She was also found to have a low hematocrit at that time. Blood was ordered but was not yet hung. A chest x-ray showed increasing p ulmonary edema, and she was in clear respiratory distress. She was given Lasix 20 mg about an hour b efore I saw her. She got an additional 40 mg at that time, was changed over to Vapotherm, but she wa s really having increasing work of breathing and was barely able to talk, so she was emergently intub ated, which is dictated separately. In any case, following the intubation, she became quite hypotens jenifer. She was given IV fluids. She never lost a pulse. She was given 1 mg of epinephrine, which sub sequently increased her pulse to the 160s, and her blood pressure was above 200 systolic, but this re solved fairly quickly. Dr. Rutledge was notified, as was the family, and updated. Dr. Rutledge put a cent ral line in for increasing IV access due to pressors that she eventually required at low dose. REVIEW OF SYSTEMS: Otherwise negative. PAST MEDICAL HISTORY: Includes: 1. Small cell lung cancer. 2. COPD. 3. Baseline hypoxemia. 4. Congestive heart failure with a known ejection fraction of 43%. 5. Depression. 6. A pleural effusion, which was tapped yesterday. The results are not quite available at this time . She also had a small pericardial effusion and a deep vein thrombosis. PAST SURGICAL HISTORY: Includes her recent surgery, as well as wrist, hip, and left humerus surgerie s in the distant past. SOCIAL HISTORY: She was a smoker up until a couple of weeks ago. Has remote alcoholism but has been sober for quite some time. FAMILY HISTORY: Includes diabetes and lung cancer. CURRENT MEDICATIONS: Include Tylenol, DuoNeb, Norvasc, heparin, insulin, Cozaar, Toprol, morphine, N icoderm, Zofran, oxycodone, Zosyn, Phenergan, Advair, Zoloft, Restoril, TPN. PHYSICAL EXAM: VITAL SIGNS: My physical exam findings were prior to intubation early this morning. At that time, she had a blood pressure of 128/67, heart rate of 130, respirations of about 30, oxyge n saturation 90% on 15 L OxyMask. GENERAL: She was somnolent and answered questions yes and no, but was unable to elaborate on any other issues. She was clearly using accessory muscles for breathing. Was seated upright in bed. HEENT: Pupils are equally round and reactive to light. Nonicteric and noninjected. Mucous membranes are moist, without erythema or exudate. No evidence of thrush. NECK : Supple, without adenopathy or jugular vein distention. LUNGS: Breath sounds were coarse bilatera lly with inspiratory and expiratory rhonchi, without wheezing. HEART: Regular rate and rhythm, with out obvious murmur. ABDOMEN: Soft, nontender with hypoactive bowel tones. There was dark liquid co jayna from her ostomy site. EXTREMITIES: No lower extremity edema, but her bilateral upper extremity edema, worse on the left than the right. NEUROLOGIC: Exam nonfocal, other than her somnolence, and cranial nerves appeared to be intact. OBJECTIVE DATA: Includes a chest x-ray as described above. Her white count this morning was 10.7, w ith hematocrit 21. She was transfused 2 units of blood with hematocrit subsequently at 32. Platelet s were 126. Anti Xa level of her Lovenox was 1.01, which was high. That was measured at about 1840 last p.m. Her basic metabolic panel was fairly unremarkable, save for a glucose of 271. LFTs were n ormal. Pleural fluid results came back during this dictation. Her pH was 7.5, 789 white cells, 4984 red cells. These were primarily listed as other cells, only 70% neutrophils, 10% lymphocytes. Tota l protein was low, but the LDH was 1208. Glucose was 111. Occult blood was positive for the colostom y output. ASSESSMENT/PLAN: 1. Acute respiratory failure with hypoxemia. This could be due to volume overload, could also be du e to aspiration pneumonia, community-acquired pneumonia or lymphangitic spread of her small cell lung cancer. In any case, I favor the volume. She has gotten some Lasix already. Will watch her urine output very closely. She may need additional diuresis, but her blood pressure is somewhat unstable a t this time. In any case, we have adjusted her ventilator for appropriate settings. We will continu e on her nebulizers. She may need systemic steroids as well. 2. Hypotension. This occurred in the setting of her intubation history as she was normotensive prio r. Blood loss would be another possibility. She did get some blood. We are holding her heparin at this moment. Her followup hematocrit looks quite good. Can resume her anticoagulation now to preven t propagation of her known deep vein thrombosis. 3. Deep venous thrombosis. She is certainly at very high risk because of her underlying lung cancer and should be treated as aggressively as we can as long as there is no ongoing bleeding. 4. Pleural effusion. This looks, I suspect, exudative. The other cells at 63% are certainly concer sophia for malignancy, and cytology reports are pending at this time. 5. Small-cell lung cancer. Extensive stage small-cell lung cancer is a very poor prognosis, though is usually responsive to chemotherapy. She is not a candidate for chemotherapy at this time given th e severity of her multiorgan dysfunction at this time. 6. A total of about 65 minutes of critical care time was required independent of procedures to evaluate this complicated patient with multiorgan failure. /[id number]/MODL
--- NOTE | 2018-06-03 17:10 | HOSPPROG ---
Hospitalist Progress Note Assessment/Plan: * Perforated diverticulum + appendicitis s/p LAR with ostomy * Peritonitis - polymicrobial -IV Zosyn * Acute on respiratory failure -emergently intubated this am with increased bilateral infiltrates -s/p IV lasix - ? ARDS * Small cell lung cancer -chemo on hold * Right pleural effusion s/p thoracentesis -presumed malignant - cytology pending * Pericardial effusion - presumed malignant -stable by ECHO * Severe protein calorie malnutrition -start TPN * COPD 2L baseline -nebs * Chronic systolic CHF - EF 43% -watch volume status * BUE DVT -IV heparin - on hold for decreased H/H * ABL anemia - transfused - unclear source of blood loss Subjective: Emergent intubation this am Objective: Vital Signs Temp Pulse Resp BP Pulse Ox 37.2 C 151 H 23 H 106/49 L 95 06/03/18 15:00 06/03/18 16:29 06/03/18 16:29 06/03/18 16:00 06/03/18 16:29 Microbiology 05/31/18 22:48 Gram Stain - Final Peritoneal Fluid - Aspirate 06/02/18 17:11 Gram Stain - Final Pleural Fluid - Aspirate Laboratory Results 06/03/18 14:14 06/03/18 14:20 06/02/18 06/03/18 06/04/18 05:59 05:59 05:59 Intake Total 2560 2660 Output Total 722.5 1516 Balance 1837.5 1144 PT 17.1 SEC (12.0-15.0) H 06/03/18 04:50 INR 1.38 (0.83-1.16) H 06/03/18 04:50 CXR viewed, my personal interpretation is - increased bilateral infiltrates tele - sinus tachy - Physical Exam Constitutional: chronically ill appearing, other (intubated and sedated) Cardiovascular: regular rate and rhythym, no murmur, rub, or gallop Respiratory: inspiratory crackles, respiratory distress, rhonchi Gastrointestinal: normoactive bowel sounds, soft, non-tender abdomen, no palpable masses Skin: no rashes or abrasions, no fluctuance, no induration Psychiatric: No interacting appropriately (intubated and sedated) ICD10 Worksheet Patient Problems: Problems Problem Status Onset Pneumoperitoneum Acute Chronic Disease [facility]/Transitional care Acute Gait abnormality Acute Hyponatremia Acute Hypoxemia Acute
[2018-06-03] MEDS ORDERED: EPINEPHrine 1 MG/10 ML SYR IVP ONE (17:16)
[2018-06-03] MEDS: CHLORHEXIDINE GLUCONATE 15 ML UDL PO SCH (20:55)
[2018-06-03] MEDS: TPN W/ FAMOTIDINE 1 EA BAG IV SCH (21:42)
[2018-06-04 04:54] LABS: PLATELET COUNT 85 10^3/uL (150-400)
[2018-06-04 05:00] LABS: INR 1.09 (0.83-1.16); PROTIME(PATIENT) 14.3 SEC (12.0-15.0)
[2018-06-04] MEDS ORDERED: FUROSEMIDE 40 MG/4 ML VIAL IVP ONE (05:21)
[2018-06-04] MEDS: INSULIN REGULAR, HUMAN 100 UNIT/1 ML VIAL STANDARD SC SCH ×4 (05:21→20:31)
[2018-06-04] MEDS: PIPERACILLIN/TAZO 4.5 GM/DEX 100 ML IV SCH ×4 (05:22→23:52)
[2018-06-04] MEDS: CHLORHEXIDINE GLUCONATE 15 ML UDL PO SCH ×2 (08:46→19:18)
[2018-06-04] MEDS: NICOTINE 14 MG/24 HR PATCH TD SCH (08:48)
[2018-06-04] MEDS: PROPOFOL/EMULSION 100 ML IV SCH ×2 (08:58→19:38)
[2018-06-04] MEDS ORDERED: POTASSIUM Cl (KCl) 50 ML IV ONE (10:18)
--- NOTE | 2018-06-04 11:11 | SOAPPROG ---
SOAP Progress Note Assessment/Plan: Assessment: POD # 2 s/p Lap low anterior resection, appendectomy, and diverting loop ostomy for perforated diverticulum Pleural effusion - likely malignant (thoracentesis on 06/02) Small cell lung cancer - was scheduled to start chemo 06/02/2018 but will need to be delayed Deep Vein Thrombosis present prior to admission RIJ, LIJ, Left axillary vein, Left subclavian vein - Was on Heparin drip. H/H dropped. Neuro - Fentanyl and Propofol Resp - Will keep intubated today Cards - Placed triple lumen groin catheter/. Monitor for hemodynamic instability - Holding Home meds which include losartan and amlodipine and metoprolol. GI - Bowel function returned. Wound/ostomy consult for ileostomy teaching when appropriate FEN - Surprised early return of bowel function. Can continue TPN and do trickle feeds. I would not get tube feeds up to goal quickly. Heme/ID - EColi and Pseudomonas and Jonathan so far on cultures. Appreciate Dr. Ruby seeing her. Extensive upper DVTs / Heparin drip held - may restart today as H/H is stable. Difficult situation. Proph - Will start Pepcid BID due to being NPO and has several risk factors for stress ulcer Dispo - Continue ICU. Continue inpatient. Appreciate pulm/cc and hospitalists S: ABG better. No acute changes O: Lying in bed sedated Tachycardic Incisions cdi. DANA drain with serosanguinous fluid. Ostomy pink with dark greenstool in bag Still edematous/arms more than legs Plan: 06/01/18 17:24 06/01/18 17:33 06/02/18 08:23 06/02/18 08:24 06/02/18 08:26 06/02/18 08:27 06/03/18 10:29 06/03/18 10:34 06/04/18 11:10 Objective: Vital Signs Temp Pulse Resp BP Pulse Ox 35.4 C L 102 H 23 H 87/46 L 93 06/04/18 08:35 06/04/18 11:00 06/04/18 11:00 06/04/18 11:00 06/04/18 11:00 Microbiology 06/02/18 17:11 Gram Stain - Final Pleural Fluid - Aspirate 05/31/18 22:48 Gram Stain - Final Peritoneal Fluid - Aspirate Laboratory Results 06/04/18 04:30 06/04/18 04:30 06/03/18 06/04/18 06/05/18 05:59 05:59 05:59 Intake Total 2660 2223.9 Output Total 1516 925 Balance 1144 1298.9 PT 14.3 SEC (12.0-15.0) 06/04/18 04:30 INR 1.09 (0.83-1.16) 06/04/18 04:30 ICD10 Worksheet Patient Problems: Problems Problem Status Onset Pneumoperitoneum Acute Chronic Disease mgmt/Transitional care Acute Gait abnormality Acute Hyponatremia Acute Hypoxemia Acute
--- NOTE | 2018-06-04 12:41 | HOSPPROG ---
Hospitalist Progress Note Assessment/Plan: Subjective Follow-up on respiratory failure hypotension and perforated diverticulum. No acute events overnight patient has remained relatively stable however she remains intubated and on a small dose of vasopressors. Her case was reviewed with Dr. Newell during ICU rounds today. Objective Vital signs as detailed below Exam General-patient appears comfortable she is sedated with both fentanyl and propofol no spontaneous movement identified Heart-regular relatively soft heart sounds no murmurs or rubs appreciated Lungs-Clear to auscultation no significant wheezing Abdomen-ostomy bag with dark green stool of liquid consistency abdomen is nondistended -Eckert catheter in place with clear yellow urine Extremities-notable edema of upper extremities less so in the lower extremities Labs as detailed below Assessment and plan Acute hypoxic respiratory failure-suspect related to increased fluid volume with resuscitation. She has been able to wean down her oxygen demand over the past [address] Newell assistance on the case. Perforated diverticulum-patient is now status post low anterior colon resection with appendectomy and diverting loop ostomy. Peritonitis-appreciate Infectious disease's assistance on the case. Continue Zosyn. Cultures grew E coli Pseudomonas in Bacteroides. Small cell lung carcinoma-patient was to start a chemotherapy during this hospitalization. We anticipate initiating chemotherapy with 1 stick more acute issues are resolved. Right pleural effusion-status post thoracentesis. This does not appear infected. Likely related to small cell lung carcinoma. Pericardial effusion-stable by follow-up echocardiograms. Consider repeat imaging with any clinical instability. Cardiology has consulted on her case previously. Bilateral upper extremity deep vein thrombosis-continue with heparin drip and monitor hemoglobin closely and for any clinical bleeding. Acute blood loss anemia-hemoglobin stable today at 9. Continue to monitor daily as she did have an abrupt decline earlier in her hospital course. Hypernatremia-improving with half normal saline. Continue to follow daily. Chronic systolic heart failure-this was discovered on recent echocardiogram. Medical therapy had been initiated previously by Cardiology. I have placed her metoprolol and losartan on hold in light of hypotension. Consider resuming these once more clinically stable in off vasopressors. COPD-history of the. Clear on exam today. In DuoNeb nebulizers ordered every 6 hr as needed. DVT prophylaxis-patient is anticoagulated with heparin. Disposition-patient is a full code status. Plan is for initiation of chemotherapy for her small cell lung carcinoma once her more acute abdominal issues are resolved. Objective: Vital Signs Temp Pulse Resp BP Pulse Ox 35.4 C L 103 H 22 H 106/59 L 96 06/04/18 08:35 06/04/18 12:28 06/04/18 12:28 06/04/18 12:00 06/04/18 12:28 Microbiology 06/02/18 17:11 Gram Stain - Final Pleural Fluid - Aspirate 05/31/18 22:48 Gram Stain - Final Peritoneal Fluid - Aspirate Laboratory Results 06/04/18 04:30 06/04/18 04:30 06/03/18 06/04/18 06/05/18 05:59 05:59 05:59 Intake Total 2660 2223.9 Output Total 1516 925 Balance 1144 1298.9 PT 14.3 SEC (12.0-15.0) 06/04/18 04:30 INR 1.09 (0.83-1.16) 06/04/18 04:30 ICD10 Worksheet Patient Problems: Problems Problem Status Onset Pneumoperitoneum Acute Chronic Disease mgmt/Transitional care Acute Gait abnormality Acute Hyponatremia Acute Hypoxemia Acute
[2018-06-04] MEDS: HEPARIN/DEXTROSE 500 ML IV SCH (13:05)
--- NOTE | 2018-06-04 13:52 | PDINTPN ---
[employer] Developer Progress Note Assessment/Plan: 72 F with recently diagnosed lung cancer but yet to have treatment admitted with perforated diverticular disease and appendicitis taken to OR for emergent hemicolectomy, appendectomy and colostomy who developed volume overload and respiratory failure requiring emergent intubation 06/03 before diuretics could take effect. There was some concern about anemia as well, though no obvious bleeding. * Acute respiratory failure with hypoxemia and mechanical ventilation. Likely a result of volume in setting of reduced EF (40%) and probable diastolic dysfunction. I/Os show an 8 liter net positive and subsequent days positive as well. Improved today by CXR and clinically so reducing FiO2 and peep (was 60% + 10). No further diuretics for now. No evidence to support aspiration or PNA at this time. Will attempt weans tomorrow * Hypotension- likely the result of intubation as short-lived. Doubt ACS but will check troponin. No clear arrythmia and no sepsis. Anemia seems dilutional and stable. Off pressors * DVT- though possible PE seems an unlikely maintenance mechanic telephone of her event as her CXR was clearly changed and uncommon for PE. Will resume anticoagulation with UFH today. Discussed with Dr. Rutledge * Peritonitis- s/p perforation and repair by Dr. Rutledge. Clinically stable and starting trickle feeds * * critical care time 45 minutes 06/04/18 13:53 Subjective: stable overnight with reduction in FiO2 and pressors Objective: Vital Signs Temp Pulse Resp BP Pulse Ox 35.4 C L 98 16 124/62 H 94 06/04/18 08:35 06/04/18 13:00 06/04/18 13:00 06/04/18 13:00 06/04/18 13:00 Microbiology 06/02/18 17:11 Gram Stain - Final Pleural Fluid - Aspirate 05/31/18 22:48 Gram Stain - Final Peritoneal Fluid - Aspirate Laboratory Results 06/04/18 04:30 06/04/18 04:30 06/03/18 06/04/18 06/05/18 05:59 05:59 05:59 Intake Total 2660 2223.9 Output Total 1516 925 Balance 1144 1298.9 PT 14.3 SEC (12.0-15.0) 06/04/18 04:30 INR 1.09 (0.83-1.16) 06/04/18 04:30 Physical Exam - Physical Exam General Appearance: obtunded, other EENT: PERRL/EOMI, ET tube Neck: supple Respiratory: lungs clear, normal breath sounds, No respiratory distress, No accessory muscle use, No crackles, No wheezing Cardiac/Chest: regular rate, rhythm, No edema Abdomen: non-tender, soft, other (dark colostomy output), No distended Skin: normal color, warm/dry, No cyanosis Lymphatic: no adenopathy Extremities: No pedal edema Neuro/Psych: cognition abnormalities, other (sedated on vent) ICD10 Worksheet Patient Problems: Problems Problem Status Onset Pneumoperitoneum Acute Chronic Disease mgmt/Transitional care Acute Gait abnormality Acute Hyponatremia Acute Hypoxemia Acute
--- NOTE | 2018-06-04 14:31 | SOAPPROG ---
SOAP Progress Note Assessment/Plan: Assessment: E&M SCLC * Extensive SCLC: right pleural effusion cytology pending. chemo (carbo/ etoposide) was supposed to start this week but on hold with recent surgery * Acute on chronic respiratory failure; COPD: still intubated but pressors are being reduced. Managed by surgery and critical care * Perforated diverticulum, Peritonitis, appendicitis: s/p LAR with colostomy; on IV Zosyn * Severe protein calorie malnutrition: agree with supplemental nutrition * Systolic CHF: EF 43% The patient is not responsive at this time. I met with her brother and other family members at the bedside. I talked about the ECOG performance status scale. She will need to have an ECOG PS of 0-2 before we can consider chemotherapy for her small cell lung CA. Currently she is a 4. We will need to see how she recovers fro this major surgery. Plan: - we will continue to follow with you. - agree with post op/critical care as you are doing Subjective: Intubated. Barely stirs to calling her name. Objective: Vital Signs Temp Pulse Resp BP Pulse Ox 35.4 C L 98 16 124/62 H 94 06/04/18 08:35 06/04/18 13:00 06/04/18 13:00 06/04/18 13:00 06/04/18 13:00 Microbiology 06/02/18 17:11 Gram Stain - Final Pleural Fluid - Aspirate 05/31/18 22:48 Gram Stain - Final Peritoneal Fluid - Aspirate Laboratory Results 06/04/18 04:30 06/04/18 04:30 06/02/18 06/03/18 06/04/18 23:59 23:59 23:59 Intake Total 2663 2639.9 1091 Output Total 1377.5 951 275 Balance 1285.5 1688.9 816 PT 14.3 SEC (12.0-15.0) 06/04/18 04:30 INR 1.09 (0.83-1.16) 06/04/18 04:30 Physical Exam - Physical Exam General Appearance: obtunded, other (intubated) Respiratory: rhonchi Cardiac/Chest: regular rate, rhythm Abdomen: No normal bowel sounds (bowel sounds absent) Skin: pallor ICD10 Worksheet Patient Problems: Problems Problem Status Onset Pneumoperitoneum Acute Chronic Disease mgmt/Transitional care Acute Gait abnormality Acute Hyponatremia Acute Hypoxemia Acute
--- NOTE | 2018-06-04 17:57 | PCMIDPN ---
Assessment/Plan: # fairly contain Polymicrobial peritonitis after perforated diverticula s/p washout and diverting loop ileostomy with culture showing Pseudomonas, E coli and Bacteroides. --continue high-dose Zosyn for coverage of Pseudomonas, creatinine is 0.9 # respiratory failure is likely related to volume overload and underlying CHF. 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 causing upper extremity edema Antibiotics, # 3 Zosyn 4.5 g IV Q 6, # 1 (2 days preceding of standard dose) Microbiology 05/30 peritoneal fluid: Pseudomonas, E coli, Bacteroides 06/01 pleural fluid: NGTD 06/03 blood cultures: (2) NGTD Subjective: Improved hemodynamics overnight, patient remains on the ventilator Objective: Vital Signs Temp Pulse Resp BP Pulse Ox 36.8 C 99 22 H 104/62 95 06/04/18 15:00 06/04/18 17:00 06/04/18 17:00 06/04/18 17:00 06/04/18 17:00 Microbiology 05/31/18 22:48 Gram Stain - Final Peritoneal Fluid - Aspirate 06/02/18 17:11 Gram Stain - Final Pleural Fluid - Aspirate Laboratory Results 06/04/18 04:30 06/03/18 06/04/18 06/05/18 05:59 05:59 05:59 Intake Total 2660 2223.9 1358.7 Output Total 0855 590 8317 Balance 1144 1298.9 -311.3 General: Sedated on ventilator HEENT: Dry mucous membranes poor dentition Cardiovascular regular rate and rhythm Chest: Coarse breath sounds on the ventilator, diminished in the right side Abdomen: Small incisions from laparoscopic procedure without abnormality, right lower quadrant DANA dairy with serosanguineous fluid, left-sided ostomy with dark stool in the bag Skin: Pallor, no rash Lines: Right upper extremity PICC C/D/I - Time Spent With Patient Time Spent with Patient: greater than 35 minutes (Reviewed course of illness and planned antibiotic therapy with patient's family at bedside) Time Spent with Patient: Greater than 35 minutes spent on this patients care, greater than 50% of time spent counseling, educating, and coordinating care regarding the above mentioned plan. ICD10 Worksheet Patient Problems: Problems Problem Status Onset Pneumoperitoneum Acute Chronic Disease mgmt/Transitional care Acute Gait abnormality Acute Hyponatremia Acute Hypoxemia Acute
[2018-06-04] MEDS: POTASSIUM Cl (KCl) 50 ML IV SCH ×3 (19:50→22:52)
[2018-06-04] MEDS: TPN W/ FAMOTIDINE 1 EA BAG IV SCH (20:48)
[2018-06-05] MEDS: INSULIN REGULAR, HUMAN 100 UNIT/1 ML VIAL STANDARD SC SCH ×2 (02:23→10:03)
[2018-06-05] MEDS: PROPOFOL/EMULSION 100 ML IV SCH (03:30)
[2018-06-05] MEDS ORDERED: ALBUTEROL 60 PUFFS/8 GM MDI IH ONE (05:07)
[2018-06-05] MEDS: PIPERACILLIN/TAZO 4.5 GM/DEX 100 ML IV SCH ×2 (05:31→11:54)
[2018-06-05 05:46] LABS: PLATELET COUNT 85 10^3/uL (150-400)
[2018-06-05 06:05] LABS: INR 1.16 (0.83-1.16)
[2018-06-05] MEDS ORDERED: LIDOCAINE 1% 300 MG/30 ML SDV ONE (06:06)
[2018-06-05] MEDS ORDERED: SODIUM BICARBONATE 50 MEQ/50 ML SYR ONE (07:05)
[2018-06-05] MEDS ORDERED: ATROPINE SULFATE 1 MG/10 ML SYR ONE (09:30)
[2018-06-05] MEDS ORDERED: EPINEPHrine 1 MG/10 ML SYR IVP ONE (09:30)
--- NOTE | 2018-06-05 09:57 | PCMIDPN ---
Assessment/Plan: 72-year-old woman with complex medical problems including metastatic small-cell lung carcinoma who sustained respiratory failure initially from CHF and overnight developed pulmonary hemorrhage. Overall poor prognosis. ID involved for management of Polymicrobial peritonitis after perforated diverticula s/p washout and diverting loop ileostomy with culture showing Pseudomonas, E coli and Bacteroides - which is the least of her problem is currently. Overall poor prognosis due to combination of multiple medical problems. --continue high-dose Zosyn for coverage of Pseudomonas, if decided that continued aggressive medical care is appropriate. Family meeting occurring today with Dr. Gina Rutledge and Dr. Hayes Newell. Care was coordinated with a Antibiotics, # 4 Zosyn 4.5 g IV Q 6, #2 (2 days preceding of standard dose) Microbiology 05/30 peritoneal fluid: Pseudomonas, E coli, Bacteroides 06/01 pleural fluid: NGTD 06/03 blood cultures: (2) NGTD Subjective: Pulmonary hemorrhage overnight Objective: Vital Signs Temp Pulse Resp BP Pulse Ox 37.1 C 163 H 30 H 98/58 L 89 L 06/05/18 07:45 06/05/18 08:00 06/05/18 08:00 06/05/18 08:00 06/05/18 08:00 Microbiology 05/31/18 22:48 Gram Stain - Final Peritoneal Fluid - Aspirate 06/02/18 17:11 Gram Stain - Final Pleural Fluid - Aspirate Laboratory Results 06/05/18 05:28 06/05/18 05:28 06/04/18 06/05/18 06/06/18 05:59 05:59 05:59 Intake Total 2223.9 3428.7 Output Total 925 1830 415 Balance 1298.9 1598.7 -415 General cachectic, chronically ill woman unresponsive, intubated HEENT dry mucous membrane ET tube Cardiovascular Marked tachycardia Chest: Coarse breath sounds Right upper PICC, right femoral central line Eckert ICD10 Worksheet Patient Problems: Problems Problem Status Onset Pneumoperitoneum Acute Chronic Disease mgmt/Transitional care Acute Gait abnormality Acute Hyponatremia Acute Hypoxemia Acute
--- NOTE | 2018-06-05 10:00 | PDINTPN ---
Mainframe Analyst Progress Note Assessment/Plan: 72 F with recently diagnosed lung cancer but yet to have treatment admitted with perforated diverticular disease and appendicitis taken to OR for emergent hemicolectomy, appendectomy and colostomy who developed volume overload and respiratory failure requiring emergent intubation 06/03 before diuretics could take effect. There was some concern about anemia as well, though no obvious bleeding. * Acute respiratory failure with hypoxemia and mechanical ventilation. Large thrombus found in trachea at main helene with ball-valve effect during emergent bronch this am. (dictated separately). Able to mostly remove, though still some in ABDIEL. ABG shows some improvement in pH/CO2 but clearly still with agonal respirations and tachycardia. Made DNR with family discussion at bedside. Most likely wd support today with comfort care only. * Hypotension- pressors resumed when CO2 high, but has not yet recovered. * DVT- though possible PE seems an unlikely director river restoration of her event as her CXR was clearly changed and uncommon for PE. Resumed UFH 06/04 but aitway bleeding makes anticoag contraindicated, but clear important for known UE DVT/ SVC syndrome. * Peritonitis- s/p perforation and repair by Dr. Rutledge. Clinically stable from this perspective * Small cell lung cancer- as yet untreated with little to no chance for chemotherapy. Her survival would be 20% at 2 years even wiuth chemo so her prognosis is poor regardless of above. Anticipate wd support this afternoon * * critical care time 75 minutes separate from procedures 06/04/18 13:53 06/05/18 09:59 06/05/18 10:37 Subjective: called urgently this am for desaturation, tachypnea and high peak pressure on the vent Objective: Vital Signs Temp Pulse Resp BP Pulse Ox 37.1 C 163 H 30 H 98/58 L 89 L 06/05/18 07:45 06/05/18 08:00 06/05/18 08:00 06/05/18 08:00 06/05/18 08:00 Microbiology 06/02/18 17:11 Gram Stain - Final Pleural Fluid - Aspirate Body Fluid Culture - Final 05/31/18 22:48 Gram Stain - Final Peritoneal Fluid - Aspirate Laboratory Results 06/05/18 05:28 06/05/18 05:28 06/04/18 06/05/18 06/06/18 05:59 05:59 05:59 Intake Total 2223.9 3428.7 Output Total 925 1830 415 Balance 1298.9 1598.7 -415 PT 15.0 SEC (12.0-15.0) 06/05/18 05:30 INR 1.16 (0.83-1.16) 06/05/18 05:30 Physical Exam - Physical Exam General Appearance: moderate distress, obtunded, thin EENT: ET tube Neck: supple Respiratory: respiratory distress, accessory muscle use, crackles, rhonchi, prolonged expiration, retractions Cardiac/Chest: regular rate, rhythm (tahcy at 160's), edema Abdomen: non-tender, soft, No distended Skin: normal color, warm/dry, diaphoresis Lymphatic: no adenopathy Extremities: No pedal edema Neuro/Psych: cognition abnormalities ICD10 Worksheet Patient Problems: Problems Problem Status Onset Pneumoperitoneum Acute Chronic Disease mgmt/Transitional care Acute Gait abnormality Acute Hyponatremia Acute Hypoxemia Acute
[2018-06-05] MEDS: CHLORHEXIDINE GLUCONATE 15 ML UDL PO SCH (10:03)
[2018-06-05] MEDS: NICOTINE 14 MG/24 HR PATCH TD SCH (10:04)
--- NOTE | 2018-06-05 11:46 | GPN ---
[f rep st] PROCEDURE NOTE DATE OF PROCEDURE: 06/05/2018 PROCEDURE: Bronchoscopy. CONSENT/SEDATION: Consent was waived due to the emergent nature of the procedure. Conscious sedatio n was not required. DESCRIPTION OF PROCEDURE: I was called to the bedside emergently due to high peak pressures, hypoxem ia, and hypotension. A bronchoscopy was performed, passed through the existing endotracheal tube, an d I found a large thrombus occluding the main trachea with ball-valve activity. It took multiple att empts with forceps to break up the clot to some degree. I also instilled sodium bicarbonate to loose n up the thrombus. I was able to pull it out in several small pieces, followed by several large piec es, and achieve patency of the airway to the main helene. The left mainstem was open. The right rudy nstem still had substantial amount of peripheral narrowing, as well as additional thrombus. Multiple attempts were made to clear this without difficulty. During the procedure itself, the patient had d ifficulty with hypoxemia occasionally running down to the 60s and 70s. At one point, she developed b radycardia down to about 50. She was given atropine with an increase in her heart rate up into the 9 0s. Although no CPR was performed, she was in a near cardiac arrest situation. Once the clot was re moved, she had improvement in blood pressure, though she did require substantial amount of norepineph rine to maintain it. Her heart rate was 160 at a sinus tachycardia at this time. Plans are potentia lly to withdraw support. In the absence of that, I would go back for another bronchoscopy and attemp t to remove whatever clot remains in the right mainstem. /[id number]/MODL
[2018-06-05 12:16] VITALS: BP 103/70
--- NOTE | 2018-06-05 13:13 | SOAPPROG ---
SOAP Progress Note Assessment/Plan: Assessment: POD # 3 s/p Lap low anterior resection, appendectomy, and diverting loop ostomy for perforated diverticulum Pleural effusion - likely malignant (thoracentesis on 06/02) Small cell lung cancer - was scheduled to start chemo 06/02/2018 - ECOG performance is declining Deep Vein Thrombosis present prior to admission RIJ, LIJ, Left axillary vein, Left subclavian vein - Had eventful evening with decreased saturation, hypotension, blood clot in main bronchus. Dr. Newell performed bronch and was able to break up clot on Left main but clot remains on R main. Severely acidotic This is an extremely difficult situation - even in best case scenario with starting chemo soon, her life expectancy is 10-20% over 2 years (discussed with Dr. Meng) I am concerned that this will not be a recoverable situation. She needs chemotherapy to slow lung cancer but performance status is too low. She needs anticoagulation to handle the blood clots but this is causing bleeding She requires pressors to maintain SBP in 100s She is on 100% FI02 and PaO2 is still in the 60s (PCO2 improved after bronch) I had a discussion with the family (Venecia and Dulce present and her son was on face time) and all agreed that DNR was appropriate I also discussed comfort care with family. I will give them time to discuss this with each other S: As above O: Lying in bed sedated - appears more uncomfortable Tachycardic Coarse Incisions cdi. DANA drain with serosanguinous fluid. Ostomy pink with dark greenstool in bag Still edematous/arms more than legs Plan: 06/01/18 17:24 06/01/18 17:33 06/02/18 08:23 06/02/18 08:24 06/02/18 08:26 06/02/18 08:27 06/03/18 10:29 06/03/18 10:34 06/04/18 11:10 06/05/18 13:00 Objective: Vital Signs Temp Pulse Resp BP Pulse Ox 37.1 C 158 H 30 H 103/70 97 06/05/18 07:45 06/05/18 12:00 06/05/18 12:00 06/05/18 12:00 06/05/18 12:00 Microbiology 06/02/18 17:11 Gram Stain - Final Pleural Fluid - Aspirate Body Fluid Culture - Final 05/31/18 22:48 Gram Stain - Final Peritoneal Fluid - Aspirate Laboratory Results 06/05/18 05:28 06/05/18 05:28 06/04/18 06/05/18 06/06/18 05:59 05:59 05:59 Intake Total 2223.9 3428.7 Output Total 925 1830 415 Balance 1298.9 1598.7 -415 PT 15.0 SEC (12.0-15.0) 06/05/18 05:30 INR 1.16 (0.83-1.16) 06/05/18 05:30 ICD10 Worksheet Patient Problems: Problems Problem Status Onset Pneumoperitoneum Acute Chronic Disease mgmt/Transitional care Acute Gait abnormality Acute Hyponatremia Acute Hypoxemia Acute
[2018-06-05] MEDS ORDERED: GLYCOPYRROLATE 0.2 MG/1 ML VIAL IVP/IM PRN (14:51)
[2018-06-05] MEDS ORDERED: ATROPINE 1% 5 ML OPHT.BTL SL PRN (14:51)
[2018-06-05] MEDS ORDERED: LORazepam 2 MG/ML INJ IVP PRN (14:51)
--- NOTE | 2018-06-05 19:55 | GDS ---
[f rep st] DISCHARGE SUMMARY Date of Admission: May 31, 2018 DATE OF : June 05, 2018. TIME OF : 152. REASON FOR ADMISSION: Aline Do is a 72-year-old woman who was diagnosed with lung cancer and was scheduled to start chemotherapy. She had increasing abdominal pain and was found to have a perforated diverticulum. I took her to the operating room on May 31, 2018 for a laparoscopic low anterior resection with splenic flexure takedown and diverting ileostomy. She was admitted to the floor postoperatively. CAUSE OF : Respiratory failure. OTHER PERTINENT DIAGNOSES: Stage 3 lung cancer, perforated diverticula, sepsis , deep venous thrombosis, acute anemia, blood loss. HOSPITAL COURSE: She was taken to the operating room on May 31, 2018. She was admitted to the floor postoperatively. Ultrasound was obtained that showed deep venous thrombosis. She had a thoracentesis performed due to a malignant pleural effusion. Her hemoglobin and hematocrit dropped. She was given blood transfusions. I transferred her to the ICU. On June 03, 2018 she was having increased work of breathing. She was intubated and developed bradycardia and hypotension. I placed a femoral line. For a period of time she appeared stabilized, but then the morning of June 05, 2018 she became very hypoxic. Bronchoscopy was performed which showed a large amount of blood clots in the bronchus. Dr. Newell was able to retrieve and remove some of the blood clot so that the left lung was ventilating properly. She continued to be on norepinephrine. She was on 100% FiO2. Despite these measures she was still struggling. We had conversations with the family and she was made DNR. We also discussed her overall performance status and that she would likely not recover well to get chemotherapy in a timely fashion. The decision was made for comfort care. She was extubated, pressors turned off and she within 15 minutes. /[id number]/MODL MTDD
--- NOTE | 2018-06-05 21:15 | GDS ---
[f rep st] DISCHARGE SUMMARY DISCHARGE DIAGNOSES: Small cell lung cancer, complicated by superior vena cava syndrome, and upper e xtremity deep vein thrombosis, her course of which was complicated by pneumoperitoneum with peritonit is secondary to perforated diverticulum. HISTORY OF PRESENT ILLNESS: The patient is a pleasant 72-year-old female who had just been recently diagnosed with small cell lung carcinoma and had not yet started chemotherapy. She came to [facility] complaining of abdominal pain. An abdominal CT performed showed evidence of pneumo peritoneum, which was felt likely secondary to a bowel perforation in the left lower quadrant of the abdomen. She subsequently underwent surgery with bowel resection and had appendectomy done as well a nd diverting loop ostomy. The patient was intubated during the hospitalization. Unfortunately, her overall condition gradually declined. Discussions took place with Dr. Phoenix and orquidea tarango regarding goals of care, and ultimately it was decided to take her off the ventilator and focus on her comfort. Shortly thereafter, the patient . Family was present at the bedside. At th e time of , I went in to examine the patient. No spontaneous movements were present. There was no response to verbal or tactile stimuli. Pupils were mid dilated and fixed. No breath sounds ausc ultated over either lung field. No pulses were palpable. No heart sounds were noted over the chest either, and she was pronounced on 06/05/2018. /[id number]/MODL
== END 2018-06-05 15:21 | disposition expired | DRG 329 ==
LOC: EDUNIT# → F2W 06-01 03:20 → F2N 06-02 10:56
PROVIDERS: ADMIT Surgery; ATTEND Surgery
PROC: 0DTJ4ZZ Resection of Appendix, Percutaneous Endoscopic Approach (ICD-10-PCS; principal; 2018-05-31 21:30)
PROC: 30233N1 Transfusion of Nonautologous Red Blood Cells into Peripheral Vein, Percutaneous Approach (ICD-10-PCS; principal; 2018-05-31 21:30)
PROC: 0DN84ZZ Release Small Intestine, Percutaneous Endoscopic Approach (ICD-10-PCS; principal; 2018-05-31 21:30)
PROC: 0DBN4ZZ Excision of Sigmoid Colon, Percutaneous Endoscopic Approach (ICD-10-PCS; principal; 2018-05-31 21:30)
PROC: 0D1N4Z4 Bypass Sigmoid Colon to Cutaneous, Percutaneous Endoscopic Approach (ICD-10-PCS; principal; 2018-05-31 21:30)
PROC: 0W993ZX Drainage of Right Pleural Cavity, Percutaneous Approach, Diagnostic (ICD-10-PCS; 2018-06-01)
PROC: 0BH18EZ Insertion of Endotracheal Airway into Trachea, Via Natural or Artificial Opening Endoscopic (ICD-10-PCS; 2018-06-03)
PROC: 5A1945Z Respiratory Ventilation, 24-96 Consecutive Hours (ICD-10-PCS; 2018-06-03)
PROC: 04HK3DZ Insertion of Intraluminal Device into Right Femoral Artery, Percutaneous Approach (ICD-10-PCS; 2018-06-03)
PROC: 0BC18ZZ Extirpation of Matter from Trachea, Via Natural or Artificial Opening Endoscopic (ICD-10-PCS; 2018-06-05)
DX: K57.20 Diverticulitis of large intestine with perforation and abscess without bleeding (principal); K66.0 Peritoneal adhesions (postprocedural) (postinfection); A41.9 Sepsis, unspecified organism; J96.21 Acute and chronic respiratory failure with hypoxia; D62 Acute posthemorrhagic anemia; J98.09 Other diseases of bronchus, not elsewhere classified; I82.622 Acute embolism and thrombosis of deep veins of left upper extremity; C34.90 Malignant neoplasm of unspecified part of unspecified bronchus or lung; J91.0 Malignant pleural effusion; I31.3 Pericardial effusion (noninflammatory); B96.20 Unspecified Escherichia coli [E. coli] as the cause of diseases classified elsewhere; B96.5 Pseudomonas (aeruginosa) (mallei) (pseudomallei) as the cause of diseases classified elsewhere; E87.0 Hyperosmolality and hypernatremia; I87.1 Compression of vein; E43 Unspecified severe protein-calorie malnutrition; J44.9 Chronic obstructive pulmonary disease, unspecified; I50.43 Acute on chronic combined systolic (congestive) and diastolic (congestive) heart failure; Z87.81 Personal history of (healed) traumatic fracture; F17.210 Nicotine dependence, cigarettes, uncomplicated; Z99.81 Dependence on supplemental oxygen; Z66 Do not resuscitate
CPT/HCPCS: 82435-PO; 82565-PO; 82947-PO; 84132-PO; 84295-PO; 84481-90; 84520-PO; 85014-PO; 85520-90; 96365; 97166-GO; G8987-GO-CL; G8988-GO-CJ; J0330; J0461; J0696; J1100; J1170; J1265; J1644; J1815; J1940; J2060; J2250; J2270; J2370; J2405; J2543; J2550; J2704; J3010; J3480; P9016; P9041; Q9967